=== PATIENT | female | born 1935 | race Caucasian/White ===

== ENCOUNTER 2016-09-15 06:25 | Inpatient (IN) ==
--- NOTE | 2016-09-14 15:55 | Discharge Summary ---
<Aster Lopez E - Last Filed: 09/14/16 16:04> Date of Encounter: 09/14/16 - Discharge Diagnosis (1) Chronic dislocation of right shoulder Priority: Primary Status: Chronic (2) Obesity (BMI 30-39.9) Priority: Secondary Status: Chronic (3) Hypertension Priority: Secondary Status: Chronic Qualifiers: Hypertension type: unspecified secondary hypertension Qualified Code(s): I15.9 - Secondary hypertension, unspecified; I15 - Secondary hypertension (4) Diabetes mellitus Priority: Secondary Status: Chronic Qualifiers: Diabetes mellitus type: type 2 Diabetes mellitus complication status: with unspecified complications Diabetes mellitus fpc insulin use: with local 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 Qualified Code(s): E11.8 - Type 2 diabetes mellitus with unspecified complications; Z79.4 - assistant terminal manager (current) use of insulin - Discharge Medications Prescriptions: Gabapentin [Neurontin] 100 mg PO HS #5 capsule Home Medications: Insulin DETEMIR [Levemir Flextouch] 15 unit SQ BID 12/31/15 [History] Aspirin 81 mg PO DAILY #30 tab.chew 01/03/16 [Rx] Allopurinol [Zyloprim 300 MG] 300 mg PO DAILY 09/15/16 [History] Cholecalciferol (D-3) [Vitamin D] 5,000 unit PO DAILY 09/15/16 [History] Gemfibrozil [Lopid] 600 mg PO BID 09/15/16 [History] Losartan [Cozaar] 25 mg PO DAILY 09/15/16 [History] Multivitamin [One Daily Multivitamin] 1 each PO DAILY 09/15/16 [History] OxyCODONE Immed Rel [Roxicodone 5 MG] 5 - 10 mg PO Q6HR PRN #40 tablet 09/15/16 [Rx] Vitamin B Complex 1 each PO DAILY 09/15/16 [History] Gabapentin [Neurontin] 100 mg PO HS #5 capsule 09/16/16 [Rx] Allergies/Adverse Reactions: Allergies Sulfa (Sulfonamide Antibiotics) Allergy (Verified 09/15/16 07:42) Rash ОЛЕГ Inhibitors Adverse Reaction (Verified 09/15/16 07:42) Palpitations Ximgusu-Qfs-Smq Reductase Inhibitor [Statins] Adverse Reaction (Verified 07:42) Cramping of the Muscles Primary care physician: Ian Roberts, - Patient Status Disposition: Home Health Service Condition: Good - Discharge Instructions Instructions: Chronic Hypertension (DC), Anemia (GEN) Follow Up With: Ian Roberts MD [Primary Care Provider] - Aster Lopez PAC [Physician Section Leader] - 09/28/16 2:20 pm Additional Instructions: Discharge Instructions: Total Shoulder Please call [facility] ([phone]), your Primary Care Physician, or report to the Emergency Room if you have any of the following symptoms: Nausea, vomiting, fever greater that 101.5, swelling, chest pain, shortness of breath, increased pain/redness/drainage/odor for your incision site, numbness/ tingling, or any other concerning symptoms. ACTIVITY: Always keep your arm in the sling. Do not raise your arm away from your body. Do not use your arm to help with getting in or out of bed. No weight bearing permitted. Only perform those exercises given to you by your therapist. MEDICATIONS: Upon discharge resume your home medications. Take all the medications as prescribed. Take a stool softener if taking narcotic pain medications. Stool softeners are only effective if you drink enough fluids. Drink 6-8 glass of water or fluids a day, unless this is not allowed for another health problem. Despite using stool softeners, if you haven't had a bowel movement in 3 days, please switch to a gentle laxative. Gentle laxatives are sold over the counter. You should have a bowel movement within 24 hours, if not call the office. You will be discharged from the hospital with a prescription for pain medication. You are encouraged to decrease the use of narcotic pain medication as tolerated. Should you require a refill, please call the office. [facility] prescribes narcotic pain medication for only 4-6 weeks after surgery. If you require pain medication beyond this time period, you may be referred to your Primary Care Physician or to the Pain Clinic for further evaluation. Plan ahead for refills on pain medication as many narcotics either need to be picked up at the office or mailed. It is best to call 48-72 hours in advance of needing a prescription refill so you don't run out of medication. To help control the post-operative pain, you may take NSAIDs (Aleve,Advil, Motrin, Ibuprofen, Naprosyn) or Tylenol as prescribed on the bottle in addition to the pain medication. WOUND CARE: Leave the dressing on for 7-10 days. You may change the dressing if it becomes saturated greater than 50%. Do not get the dressing wet at anytime. Wash your hands with antibacterial soap, rinse and dry prior to any wound care. If you have macey the visiting nurse or rehab facility can remove the stapes 10-14 days after surgery and place steri-strips across the wound. Leave the steri-strips in place until they fall off on their own. You may let water from the shower run on top of the steri-strips. If you do not have a visiting nurse or rehab facility, you will need to return to the office at 10-14 days for the macey to be removed. If you have itching or redness around the dressing call the office. FOLLOW-UP: Please follow up with your surgeon in the orthopedic clinic, as scheduled - Hospital Course Hospital course: Ms. Cadena is a 81 year old female - Time Spent with Patient Total time spent providing and/or coordinating discharge services: <Lamar Melendez - Last Filed: 09/17/16 12:43> Date of Encounter: 09/16/16 Time of Encounter: 12:43 Primary care physician: Ian Roberts, - Patient Status Functional capacity at discharge: independent ambulation Overall status at discharge: patient is back to baseline - Hospital Course Hospital course: Ms. Cadena is a 81 year old female - Time Spent with Patient Total time spent providing and/or coordinating discharge services: <Asim Chavez - Last Filed: 09/20/16 16:56> Date of Encounter: 09/20/16 Time of Encounter: 16:54 - Discharge Diagnosis (1) Diabetes mellitus Priority: Secondary Status: Chronic Qualifiers: Diabetes mellitus type: type 2 Diabetes mellitus complication status: with unspecified complications Diabetes mellitus fpc insulin use: with fpc use Qualified Code(s): E11.8 - Type 2 diabetes mellitus with unspecified complications; Z79.4 - assistant terminal manager (current) use of insulin (2) CKD stage 3 due to type 2 diabetes mellitus Priority: Secondary Status: Chronic (3) Hypertensive kidney disease with CKD stage III Priority: Secondary Status: Chronic (4) Hypertension Priority: Secondary Status: Chronic Qualifiers: Hypertension type: unspecified secondary hypertension Qualified Code(s): I15.9 - Secondary hypertension, unspecified; I15 - Secondary hypertension (5) Chronic dislocation of right shoulder Priority: Primary Status: Chronic (6) Status post total replacement of right shoulder Priority: Primary Status: Acute (7) Acute blood loss anemia Priority: Primary Status: Acute Primary care physician: Ian Roberts, - Hospital Course Hospital course: Ms. Cadena is a 81 year old female Status post total shoulder replacement for chronic dislocation patient received transfusion prior to discharge discharged in stable condition otherwise uneventful postoperative course received antibiotics and physical therapy. Discharge to home. - Time Spent with Patient Total time spent providing and/or coordinating discharge services:
[2016-09-15] MEDS ORDERED: CeFAZolin Pre 2,000 MG/100 ML 2,000 MG/100 ML BAG IVPB ONE (06:48)
[2016-09-15] MEDS ORDERED: Lidocaine -MPF 1% 2 ML VIAL ID ONE (06:48)
[2016-09-15] MEDS ORDERED: EPHEDrine 50 MG/ML VIAL ONE (06:58)
[2016-09-15] MEDS ORDERED: *HR* Midazolam HCl 2 MG/2 ML VIAL ONE (06:59)
[2016-09-15] MEDS ORDERED: *HR* Propofol 200 MG/20 ML VIAL IVP ONE (06:59)
[2016-09-15] MEDS ORDERED: *HR* FentaNYL (PF) 100 MCG/2 ML VIAL ONE (06:59)
[2016-09-15] MEDS ORDERED: Lidocaine -MPF 4% 5 ML AMPUL ONE (07:00)
[2016-09-15] MEDS ORDERED: *HR* Phenylephrine 10 MG/ML VIAL ONE (07:00)
[2016-09-15] MEDS ORDERED: Lidocaine -MPF 2% 2 ML VIAL ONE (07:00)
[2016-09-15] MEDS ORDERED: Ringers Solution, Lactated 1,000 ML IVC SCH ×2 (07:00→08:15)
[2016-09-15] MEDS ORDERED: *HR* Rocuronium Bromide 50 MG/5 ML VIAL ONE (07:00)
[2016-09-15] MEDS ORDERED: *HR* Succinylcholine 200 MG/10 ML VIAL IVP ONE (07:00)
--- NOTE | 2016-09-15 07:10 | Anesthesia Evaluation PreOp ---
Date of Encounter: 09/15/16 Time of Encounter: 07:08 - Past History Planned Operation: r tsr Cardiac History: HTN, Other (echo 2016: ef 60, nl rv) Pulmonary History: Denies Any Significant HX TRIMMER AND REINFORCER History: Denies Any Significant HX Other Medical History: Renal (cri), Diabetes Type II Anesthesia History: No Prior Anesthetic Complications, Past Anesthesia ( cholecyst, appy, hysterect, nephrectomy,l rcr) Alcohol Use: none Drug use: none Medications and Allergies Insulin DETEMIR [Levemir Flextouch] 12 unit SQ QAM AND QHS 12/31/15 [History] Insulin LISPRO [Humalog Kwikpen U-100] 8 - 15 unit SQ TIDAC 12/31/15 [History] Aspirin 81 mg PO DAILY #30 tab.chew 01/03/16 [Rx] Labetalol [Trandate] 100 mg PO BID #60 tablet 01/03/16 [Rx] Ibuprofen [Motrin] 600 mg PO Q8HR #60 tablet 03/06/16 [Rx] Allergies ОЛЕГ Inhibitors Allergy (Unverified 09/13/16 15:21) Palpitations Jowsnys-Tcd-Loa Reductase Inhibitor [Statins] Allergy (Unverified 09/13/16 15:21 ) Cramping of the Muscles Sulfa (Sulfonamide Antibiotics) Allergy (Verified 12/31/15 20:11) Rash - Meds/Allergy Pre-op Review Medications Reviewed: Yes Allergies Reviewed: Yes Beta Blockers on Current Med List: No Anesthesia Results - Labs Laboratory Tests 09/13/16 09/13/16 09/13/16 15:30 15:30 15:30 Hgb 11.1 L Hct 35.4 Plt Count 302 PT 11.2 INR 1.0 APTT 37.7 H Sodium 142 Potassium 4.6 H Creatinine 1.56 H - Imaging EKG: report reviewed (sr, lvh) Anesthesia Exam O2 Sat Height 1.57 m Height 1.57 m Height 1.57 m Weight 83.461 kg Weight 83.461 kg Weight 83.461 kg O2 Sat by Pulse Oximetry 96 Vital Signs Temp Pulse Resp BP Pulse Ox 98.4 F 84 18 163/88 96 09/15/16 06:52 09/15/16 06:52 09/15/16 06:52 09/15/16 06:52 09/15/16 06:52 Blood glucose: 185 Height: 1.57 Weight: 83 NPO (# of Hours): >8 - HEENT Pupil (Motor): Pupils equal, EOMI Mallampati: III Teeth: Poor dentition Oral Opening: Greater than 3 - TRIMMER AND REINFORCER LOC: Oriented TRIMMER AND REINFORCER Motor: Normal RUE (weak), Normal LUE (weak), Normal Face, Deficit RLE, Deficit LLE TRIMMER AND REINFORCER Sensory: Normal: RUE, LUE, Face, Deficit: RLE, LLE - Cardiac Rhythm: Regular Murmur: None - Pulmonary Breath Sounds: bilateral Clear Respiratory Effort: Symmetrical Anesthesia Assess/Plan ASA Score: 3 Modified Kevin Scale for Level of Consciousness: Cooperative, oriented, and tranquil Anesthetic Plan: General, Regional Monitoring Plan: Standard Monitors Recovery Plan: PACU
[2016-09-15] MEDS ORDERED: 0.9 % Sodium Chloride 500 ML IVC SCH (07:15)
[2016-09-15] MEDS ORDERED: CloNIDine Patch 0.1 MG PATCH (WEEKLY) TD ONE (07:15)
[2016-09-15] MEDS ORDERED: Bupivacaine/Clonidine Syringe 1 EACH SYRINGE ONE (07:22)
[2016-09-15] MEDS ORDERED: ROPIVACAINE HCL/PF 0.5% 30 ML VIAL ONE (07:22)
--- NOTE | 2016-09-15 07:32 | History & Physical Report ---
Date of Encounter: 09/15/16 Time of Encounter: 07:31 24 Hour HP Update - Instructions Instructions: If the History and Physical is less than 30 days old and was completed prior to A.M. admission and or procedure and has NOT been updated on calendar day of procedure please complete this update prior to performing procedure. - Update Patient reports changes in Medical Condition: No Changes in examination, assessment, or condition: No Changes in Medication: No Preop tests/diagnostics Reviewed: Yes Surgery Remains Indicated: Yes Consent for Planned Operative Procedure(s) Verified: Yes - Pre-Operative Checklist Preoperative Checklist Indicated: No Prophylactic Antibiotic Ordered: Yes Is VTE Prophylaxis Indicated?: Yes
[2016-09-15] MEDS ORDERED: Dexamethasone 4 MG/ML VIAL ONE (08:04)
[2016-09-15] MEDS ORDERED: Ondansetron 4 MG/2 ML VIAL ONE (08:04)
[2016-09-15] MEDS ORDERED: Albuterol 2.5 MG/3 ML NEBULIZER IH ONE (08:07)
[2016-09-15] MEDS ORDERED: Ondansetron 4 MG/2 ML VIAL IVP ONE (08:07)
[2016-09-15] MEDS ORDERED: *HR* Meperidine 25 MG/ML SYRINGE IVP PRN (08:07)
[2016-09-15] MEDS ORDERED: *HR* Labetalol 20 MG/4 ML SYRINGE IVP PRN (08:07)
[2016-09-15] MEDS ORDERED: Naloxone 0.4 MG/ML INJ IVP PRN ×2 (08:07→09:52)
--- NOTE | 2016-09-15 08:16 | Anesthesia Procedures ---
Date of Encounter: 09/15/16 Time of Encounter: 08:14 Procedures: Anesthesia - Nerve Block Procedure Date: 09/15/16 Time: 08:14 Surgical Procedure: right tsr reverse Checklist: Correct Patient Identifier, Correct procedure, History checked Correct side: Right Blood Thinner: No Monitor Applied: EKG, BP, Pulse Oximetry Supplemental Oxygen via Nasal Cannula (L/min): 2 Sedation: Versed (mg): 1 Sedation: Fentanyl (mcg): 50 Indication: Post Op Analgesia (request per dr. vargas for post op pain control) Pre-op Neuro Deficits: No Block Type: Supraclavicular (scp/icb) Catheter placed: No Sterile Technique: Yes Ultrasound used: Yes Anatomy identified: Yes Visual spread of Local: Yes Neuro Stimulation: No Blood on Needle Aspiration: No Smooth Injection of Local: Yes Pain with Injection of Local: No Prep: Chlorhexadine Needle: 22 x 50 mm Stimuplex Local: 0.25% Bupivicaine w/Clonidine 20 mcg/cc (scp/icb 10mls), Ropivacaine (0.5 % 30ml) Volume (cc): 30 Number of Attempts: 1 Complications: None/effective block Vitals: Vital Signs/O2 Sat/Glucose, Most Current Temp Pulse Resp BP Pulse Ox 09/15/16 07:41 68 16 146/93 94 09/15/16 06:52 98.4 F 84 18 163/88 96 Comments: pt tolerated procedure well. no complications. vss.
[2016-09-15] MEDS ORDERED: Vancomycin 1,000 MG VIAL ONE (08:27)
[2016-09-15] MEDS ORDERED: Vancomycin 1,250 MG in D5% in Water 250 ML IVPB ONE (08:28)
--- NOTE | 2016-09-15 08:46 | Orthopedic Operative Note ---
Date of procedure: 09/15/16 Pre-op diagnosis: chronic dislocated right shoulder Post-op diagnosis: same Procedure: Procedure: Right Total Shoulder Replacment Reverse, Estimated blood loss: 100 cc Hardware: Metal and polyethylene replacement: Arthrex small glenoid baseplate, 2 4.5 screws. 1 6.5 screw, 36+4 glenosphere, 6 humeral stem, poly insert 3 constrained 6 metal Restricted motion Procedural Notes: Large Hill-Sachs lesion humeral head dislocated from glenoid socket Operative procedure: The patient was brought to the operating room and placed on the operating room table. After general anesthesia was administered the operative shoulder was examined. Findings were noted. The patient was placed in the modified beachchair position. All pressure points were padded appropriately. And the head was stabilized in the neutral position. The operative extremity was prepped and draped in the sterile surgical fashion. The patient received IV antibiotics prior to skin incision. A standard deltopectoral approach was made to the operative shoulder. Incision was made to the skin and subcutaneous tissue,hemo stasis was obtained with Bovie cautery. Using careful blunt dissection the cephalic vein was identified and mobilized medially. The deltopectoral interval was developed and the clavipectoral fascia was incised. The patient was chronically dislocated anatomy was abnormal. Subscap was released and shoulder was dislocated. Humeral head had a large Hill-Sachs lesion. Humeral cut was made along the anatomic neck. Anterior and posterior Bankart retractors were placed to expose the glenoid. Patient had a very small glenoid. The glenoid guide was seated and the centering hole was made. It was reamed with the appropriate reamer. And a small baseplate was seated and secured with (2) 4.5 screws and one 6.5 screw. The baseplate was irrigated and dried and the 36+4 Glenosphere was seated and secured with the Fuentes taper. The Fuentes taper was tested and found to be secure the humerus was redislocated and prepared with the diaphyseal reamers, followed by a broaching process up to the appropriate size 6 in the patient's anatomic version. The metaphyseal reamer was then utilized. Trial reduction found the shoulder to be relocatable. Trial components were removed and The appropriate 6 stem was impacted in place in the patient's anatomic version. Trial reduction found the shoulder to be relocatable and stable with the appropriate 6 metal 3 Anjelica constrained Trial component was removed and the real implants was seated and secured the shoulder was reduced. The shoulder had excellent motion and excellent stability and no evidence of dislocation. The deep tissue was irrigated with pulse irrigation. Wound was closed by the PA. The deltopectoral interval was closed with a running #1 PDS suture, subcutaneous tissue was irrigated and closed with 0 PDS suture, the skin was closed with macey. The patient was placed in a sterile dressing, abduction brace and extubated. The patient was then transferred to the recovery room in stable condition. Anesthesia: GETYordan Surgeon: Asim Chavez Chicken Catcher: Lamar Melendez Condition: stable Disposition: PACU
[2016-09-15] MEDS ORDERED: *HR* HYDROmorphone (PF) 1 MG/ML SYRINGE ONE (09:04)
[2016-09-15] MEDS: *HR* HYDROmorphone (PF) 1 MG/ML SYRINGE IVP PRN ×3 (09:07→22:42)
[2016-09-15 09:31] LABS: Hematocrit 29.7 % (35.3-44.9); Hemoglobin 9.8 g/dL (11.5-15.4)
--- NOTE | 2016-09-15 09:43 | Anesthesia Evaluation Post Op ---
Date of Encounter: 09/15/16 Time of Encounter: 09:42 - Vital Signs Vital Signs: Last Vital Signs Temp 97.3 F L 09/15/16 09:40 Pulse 81 09/15/16 09:40 Resp 16 09/15/16 09:40 BP 153/74 09/15/16 09:40 Pulse Ox 93 09/15/16 09:40 - Lungs Lungs: Clear Ascult./Percussion - Airway Airway: Non-obstructed - Cardiovascular Regular Rate - Mental Status Mental Status: Alert & Oriented, Answers Appropriately - Pain Pain Scale: 2 - Nausea Vomiting Nausea Vomiting: Not Present - Hydration Hydration: Ice chips - Discharge PostOp Status: Transfer Patient to floor
[2016-09-15] MEDS ORDERED: D5% in Water 1,000 ML IVC PRN (09:52)
[2016-09-15] MEDS ORDERED: *HR* Dextrose 50 % in Water (Syg) 50 ML SYRINGE IVP PRN (09:52)
[2016-09-15] MEDS ORDERED: Dextrose Gel 15 GM PO PRN ×2 (09:52)
[2016-09-15] MEDS ORDERED: Temazepam 15 MG CAPSULE PO PRN (09:52)
[2016-09-15] MEDS ORDERED: MOM Conc 10 ML UD.LIQ PO PRN (09:52)
[2016-09-15] MEDS ORDERED: Sennosides 8.6 MG TABLET PO PRN (09:52)
[2016-09-15] MEDS ORDERED: *HR* OxyCODONE Immed Rel 5 MG TABLET PO PRN (09:52)
[2016-09-15] MEDS: Ondansetron 4 MG/2 ML VIAL IVP PRN ×2 (10:27→23:59)
[2016-09-15] MEDS: Aspirin 81 MG TAB.CHEW PO SCH (11:28)
[2016-09-15] MEDS: Multivit/Ca/Min/Fe/FA 1 TAB TABLET PO SCH (11:28)
[2016-09-15] MEDS: Cholecalciferol (D-3) 1,000 UNIT TABLET PO SCH (11:28)
[2016-09-15] MEDS: Insulin LISPRO 300 UNITS/3 ML VIAL SQ SCH ×2 (11:33→16:50)
[2016-09-15] MEDS: Vitamin B Complex/Vit C/Vit E 1 EACH TABLET PO SCH (11:39)
[2016-09-15] MEDS: Ringers Solution, Lactated 1,000 ML IVC SCH (11:43)
[2016-09-15] MEDS: Insulin DETEMIR 100 UNIT/ML X5UNITS SQ SCH ×2 (12:31→22:34)
[2016-09-15] MEDS: ceFAZolin 2,000 MG in D5% in Water 100 ML IVPB SCH ×2 (16:44→23:56)
[2016-09-15] MEDS: *HR* Enoxaparin 30 MG/0.3 ML SYRINGE SQ SCH (17:00)
[2016-09-15] MEDS ORDERED: *HR* Enoxaparin 30 MG/0.3 ML SYRINGE SQ SCH ×2 (18:00)
[2016-09-15] MEDS: *HR* OxyCODONE Immed Rel 5 MG TABLET PO PRN (20:09)
[2016-09-15] MEDS ORDERED: Insulin LISPRO 300 UNITS/3 ML VIAL SQ SCH (21:00)
[2016-09-15] MEDS ORDERED: Gabapentin 100 MG CAPSULE PO SCH (21:00)
[2016-09-16] MEDS: *HR* HYDROmorphone (PF) 1 MG/ML SYRINGE IVP PRN (04:26)
[2016-09-16 05:15] LABS: Hematocrit 27.7 % (35.3-44.9); Hemoglobin 8.8 g/dL (11.5-15.4)
[2016-09-16] MEDS: Ringers Solution, Lactated 1,000 ML IVC SCH (06:17)
--- NOTE | 2016-09-16 07:50 | Orthopedics Progress Note ---
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 Qualified Code(s): E11.8 - Type 2 diabetes mellitus with unspecified complications; Z79.4 - buttermaker continuous churn (current) use of insulin (2) CKD stage 3 due to type 2 diabetes mellitus Current Visit: No Status: Chronic (3) Hypertensive kidney disease with CKD stage III Current Visit: No Status: Chronic (4) Hypertension Current Visit: Yes Status: Chronic Qualifiers: Hypertension type: unspecified secondary hypertension Qualified Code(s): I15.9 - Secondary hypertension, unspecified; I15 - Secondary hypertension (5) Chronic dislocation of right shoulder Current Visit: Yes Status: Chronic (6) Status post total replacement of right shoulder Current Visit: Yes Status: Acute (7) Acute blood loss anemia Current Visit: Yes Status: Acute Subjective Interval history: Patient was seen this morning doing well without complaints. Afebrile vital signs stable. Operative extremity: Neurovascularly intact Dressing clean dry and intact Calves nontender Assessment and plan: Continue with postoperative care Hemoglobin 8.8, acute blood loss anemia, transfused 2 units. Plan for discharge to extended care facility when approved Objective Vital signs: Vital Signs Temp Pulse Resp BP Pulse Ox 09/16/16 07:05 98.0 F 61 18 159/75 99 09/16/16 04:43 98.3 F 66 16 122/50 98 09/16/16 00:23 98.3 F 68 16 171/73 98 09/15/16 19:34 97.9 F 81 15 133/67 97 09/15/16 12:54 97.3 F L 84 16 136/80 93 09/15/16 11:53 97.4 F L 83 16 141/73 93 09/15/16 10:52 97.6 F 86 16 155/84 94 09/15/16 10:36 95 09/15/16 10:23 97.5 F L 87 12 176/82 95 09/15/16 09:57 97.5 F L 81 14 172/82 91 09/15/16 09:40 97.3 F L 81 16 153/74 93 09/15/16 09:30 97.3 F L 83 16 149/73 93 09/15/16 09:20 91 16 134/64 94 09/15/16 09:10 82 16 150/79 94 09/15/16 09:00 97.0 F L 82 16 138/75 93 Intake and Output 09/15/16 09/15/16 09/16/16 15:59 23:59 07:59 Intake Total 350 / 350 0 / 0 1000 / 1000 Output Total 500 / 500 200 / 200 Balance -150 / -150 -200 / -200 1000 / 1000 Intake: IV Fluids 350 / 350 0 / 0 1000 / 1000 Lactated Ringers 1,000 ML 1000 / 1000 @ 75 mls/hr IVC .[id number] [facility] Rx#:[id number] Ancef Premix 2,000 MG/100 100 / 100 ML 2,000 mg In 100 ml @ 200 mls/hr IVPB PREOP ONE Rx#:[id number] Vancocin 1,250 MG In 250 / 250 Dextrose 5% 250 ML @ 167 mls/hr IVPB ONCE ONE Rx#: [id number] Ancef 2,000 MG In 0 / 0 Dextrose 5% 100 ML @ 200 mls/hr IVPB Q8HR [facility] Rx#: [id number] Output: Urine 200 / 200 Estimated Blood Loss 500 / 500 Other: # Voids 1 Blood Glucose* 227 234 133 - Labs CBC & BMP: 09/16/16 04:51 Labs: Abnormal lab results Hgb 8.8 g/dL (11.5-15.4) L 09/16/16 04:51 Hct 27.7 % (35.3-44.9) L 09/16/16 04:51 POC Glucose 234 (58-89) H 09/15/16 22:32 - VTE Documentation of Mechanical Device: Venous foot pump, device Consult Discharge Plan - Plan Referrals: Aster Lopez PAC [Physician Operations And Maintenance Manager] - 09/28/16 2:20 pm Ian Roberts MD [Primary Care Provider] -
[2016-09-16] MEDS: Ondansetron 4 MG/2 ML VIAL IVP PRN (07:53)
[2016-09-16] MEDS: Insulin LISPRO 300 UNITS/3 ML VIAL SQ SCH ×3 (08:12→17:05)
[2016-09-16] MEDS ORDERED: Furosemide 20 MG/2 ML VIAL IVP PRN (09:04)
[2016-09-16] MEDS: Cholecalciferol (D-3) 1,000 UNIT TABLET PO SCH (11:01)
[2016-09-16] MEDS: Multivit/Ca/Min/Fe/FA 1 TAB TABLET PO SCH (11:01)
[2016-09-16] MEDS: Aspirin 81 MG TAB.CHEW PO SCH (11:01)
[2016-09-16] MEDS: Vitamin B Complex/Vit C/Vit E 1 EACH TABLET PO SCH (11:01)
[2016-09-16] MEDS: Insulin DETEMIR 100 UNIT/ML X5UNITS SQ SCH (11:01)
--- NOTE | 2016-09-16 12:19 | Physician Discharge Referral ---
ExtendedCare Referral Info Transfer To: [place] Provider in Charge after Transfer: PCP Institutional Level of Care: Skilled Expected Duration of Placement: 30 days Prognosis: Good Aware of Diagnosis: Patient Aware of Prognosis: Patient - Transfer Medications Prescriptions: Gabapentin [Neurontin] 100 mg PO HS #5 capsule Home Medications: Insulin DETEMIR [Levemir Flextouch] 15 unit SQ BID 12/31/15 [History] Aspirin 81 mg PO DAILY #30 tab.chew 01/03/16 [Rx] Allopurinol [Zyloprim 300 MG] 300 mg PO DAILY 09/15/16 [History] Cholecalciferol (D-3) [Vitamin D] 5,000 unit PO DAILY 09/15/16 [History] Gemfibrozil [Lopid] 600 mg PO BID 09/15/16 [History] Losartan [Cozaar] 25 mg PO DAILY 09/15/16 [History] Multivitamin [One Daily Multivitamin] 1 each PO DAILY 09/15/16 [History] OxyCODONE Immed Rel [Roxicodone 5 MG] 5 - 10 mg PO Q6HR PRN #40 tablet 09/15/16 [Rx] Vitamin B Complex 1 each PO DAILY 09/15/16 [History] Gabapentin [Neurontin] 100 mg PO HS #5 capsule 09/16/16 [Rx] Allergies/Adverse Reactions: Allergies Sulfa (Sulfonamide Antibiotics) Allergy (Verified 09/15/16 07:42) Rash ОЛЕГ Inhibitors Adverse Reaction (Verified 09/15/16 07:42) Palpitations Rtzbzat-Jst-Pqj Reductase Inhibitor [Statins] Adverse Reaction (Verified 07:42) Cramping of the Muscles - Respiratory Orders None Smoking Cessation: Smoking cessation has been advised. For more information, call the [place] Tobacco Quit Line at 1-679-SMXY-NOW. - Lab Orders Lab Orders: CBC - Ancillary Orders May use pressure relief devices daily prn, May go on TATY w/family/respon green party w /meds at nurse discretion PRN, May consult with Dentist, Optical Lens Manufacturing Tech, Sensor Technician PRN - History and Physical History/Physical reviewed & approved w/add comments: POD#1 - Patient received blood transfusion of 2 units. - Rehabiliation Orders Rehab Potential: Good Rehab Orders: ROM Exercises, Evaluation for Physical Therapy, Evaluation for Occupational Therapy Other: Apply cold therapy wrap 3-6x/day for 20 minutes at a time. Shoulder precautions x 6 weeks. Encourage ambulation throughout the day and incentive spirometer 10x/hour. Elevate affected extremity above heart as tolerated. NWB to affected upper extremity. Will remove brace at first post-operative appointment. OK to remove during PT/ OT. - Treatments List/Other: Opsite dressing, leave intact until first post-operative visit. If dressing becomes >50% saturated, contact office, remove dressing and place appropriate dressing in its place. Do not allow for dressing to get wet. Pol[place] in place. Remove at POD#14 - Diet Orders Regular CERTIFICATION: I certify that the transfer of the above named patient to an Extended Care Facility is necessary for the continuing treatment of the diagnosis listed. The above information is true and accurate reflection of patient's current condition. Confidential - Redisclosure prohibited without a patient's written consent.
[2016-09-16] MEDS ORDERED: 0.9 % Sodium Chloride 250 ML ONE (15:45)
[2016-09-16] MEDS: *HR* OxyCODONE Immed Rel 5 MG TABLET PO PRN (17:05)
[2016-09-16] MEDS: *HR* Enoxaparin 30 MG/0.3 ML SYRINGE SQ SCH (17:06)
[2016-09-16] MEDS ORDERED: Furosemide 20 MG/2 ML VIAL IVP ONE (18:40)
[2016-09-16 18:52] VITALS: BP 152/67
== END 2016-09-16 20:30 | disposition home health service (06) | DRG 483 ==
LOC: SAMDAY 06:25 → 3NENU 09:46
PROVIDERS: ADMIT Orthopaedic Surgery; ATTEND Orthopaedic Surgery

== ENCOUNTER 2018-12-20 08:57 | Observation (INO) ==
--- NOTE | 2018-12-20 09:06 | Emergency Department Note ---
Disposition Clinical Impression: Small bowel obstruction Disposition: Admitted As Inpatient Condition: Fair Time of Disposition: 10:45 General Adult HPI - General Chief complaint: ED Nausea/Vomiting/Diarrhea Stated complaint: Nausea/Vomiting Time Seen by Provider: 12/20/18 09:03 Nursing Notes Reviewed: Yes Vital Signs Reviewed: Yes - History of Present Illness HPI Narrative: 83-year-old female presents emergency department with concern for nausea and vomiting for last 12 hours. Patient reports history of kidney cancer with nephrectomy. She also reports a remote history of gastric cancer where she had some type of abdominal surgery performed. Patient also reporting elevated glucose over the last several hours as well. Reports that she cannot keep an ything down. Reports that she has had no fever. She states that the abdominal pain is burning in nature and it is diffuse in nature. It does not radiate anywhere else. - Related Data Home Medications Medication Instructions Recorded Confirmed Insulin DETEMIR [Levemir Flextouch] 15 unit SQ BID 12/31/15 12/20/18 Allopurinol [Zyloprim 300 MG] 300 mg PO DAILY 09/15/16 12/20/18 Cholecalciferol (D-3) [Vitamin D] 5,000 unit PO DAILY 09/15/16 12/20/18 Gemfibrozil [Lopid] 600 mg PO BID 09/15/16 12/20/18 Losartan [Cozaar] 25 mg PO DAILY 09/15/16 12/20/18 Multivitamin [One Daily 1 each PO DAILY 09/15/16 12/20/18 Multivitamin] Vitamin B Complex 1 each PO DAILY 09/15/16 12/20/18 Previous Rx's Medication Instructions Recorded Aspirin 81 mg PO DAILY #30 tab.chew 01/03/16 Allergies Allergy/AdvReac Type Severity Reaction Status Date / Time Sulfa (Sulfonamide Allergy Rash Verified 09/01/18 20:33 Antibiotics) ОЛЕГ Inhibitors AdvReac Palpitation Verified 09/01/18 20:33 s [id number] Reductase AdvReac Cramping Verified 09/01/18 20:33 Inhibitor of the [Statins] Muscles All systems ED: reviewed and negative except as stated. Review of Systems: As Per HPI Constitutional: Denies: fever Cardiovascular: Denies: chest pain Respiratory: Denies: cough, dyspnea Gastrointestinal: Reports: abdominal pain, nausea, vomiting. Denies: melena Genitourinary: Denies: dysuria Musculoskeletal: Denies: back pain Past Medical History - Past Medical History Attestation: Yes The following information was validated with the patient. Medical history: Reports: diabetes, hypertension Surgical history: Reports: appendectomy, cholecystectomy, other Psychiatric history: Reports: no psych history, other - Social History Smoking Status: Never smoker Smokeless Tobacco Status: No Alcohol use: Reports: none Drug use: Reports: none Physical Exam - General Limitations: no limitations General appearance: alert, other (Appears uncomfortable) - Head Head exam: normocephalic, normal inspection - Eye Eye exam: Present: EOMI. Absent: scleral icterus - ENT ENT exam: mucous membranes moist - Neck Neck exam: Present: trachea midline - Chest Chest inspection: Present: symmetric chest wall rise - Respiratory Respiratory exam: Present: normal lung sounds bilaterally. Absent: respiratory distress, accessory muscle use - Cardiovascular Cardiovascular exam: Present: regular rate, normal rhythm, normal heart sounds - Abdominal Exam Abdominal exam: Present: soft, tenderness. Absent: distention, guarding, rebou nd, rigidity - Extremities Exam Extremities exam: Present: normal capillary refill - Back Exam Back exam: Present: full ROM - Neurological Exam Neurological exam: Present: alert, oriented X3 - Psychiatric Psychiatric exam: Present: normal affect, normal mood Course Vital Signs Temperature 97.6 F 12/20/18 08:58 Pulse Rate 99 12/20/18 08:58 Respiratory Rate 18 12/20/18 08:58 Blood Pressure 226/110 12/20/18 08:58 O2 Sat by Pulse Oximetry 98 12/20/18 08:58 Temperature 97.6 F 12/20/18 09:08 Pulse Rate 84 12/20/18 10:50 Respiratory Rate 16 12/20/18 10:50 Blood Pressure 196/91 12/20/18 10:50 O2 Sat by Pulse Oximetry 97 12/20/18 10:50 Oxygen Delivery Oxygen Delivery Nasal Cannula Medical Decision Making - MDM Narrative Medical decision making narrative: 83-year-old female was his emergency department with nausea, vomiting, abdominal pain. CT scan of the abdomen and pelvis reveals small bowel obstruction. There is a transition point. I spoke with Dr. Huizar, the general surgeon who stated to admit patient to medicine and he would consult formally on the case. Creatinine is about baseline. Patient admitted to Dr. Omeda. No NG tube placement at this tme. Abdomen/Pelvis CT 12/20/18 09:40 IMPRESSION: 1. Small-bowel obstruction with a transition point in the right lower quadrant within the ileum. There is a questionable 2nd transition point versus adhesion within the mid pelvis mesentery as well. No free air or pneumatosis. 2. Trace ascites. 3. Sequela of chronic pancreatitis. 4. Status post right nephrectomy. D/ / Bria Mireles MD / Bria Mireles MD Interpreting Provider: Bria Mireles MD 1008 hrs.: Patient CT is back and shows a bowel obstruction. We are going to speak with surgery reassess the patient bring her into the hospital. She also has a chronic kidney injury and elevated white count. 1020 hrs.: Spoke with surgery, Dr. Huizar, admit to hospitalist with surgery consult. - Lab Data Result diagrams: 12/20/18 09:17 12/20/18 09:17 Lab Results 12/20/18 12/20/18 12/20/18 Range/Units 09:17 09:17 09:17 WBC 13.6 H (4.3-11.1) K/mcL RBC 3.36 L (3.82-4.97) M/mcL Hgb 10.5 L (11.5-15.4) g/dL Hct 32.5 L (35.3-44.9) % MCV 96.7 (83.0-100.0) fL MCH 31.3 (28.0-33.3) pg MCHC 32.3 (31.6-35.5) g/dL RDW 14.8 H (11.5-14.5) % Plt Count 327 (140-400) K/mcL MPV 11.2 (9.4-12.4) fL Immature Gran % 0.3 (0-4) % Seg Neutrophils % 94.4 % Lymphocytes % 2.9 % Monocytes % 2.0 % Eosinophils % 0.0 % Basophils % 0.4 % Neutrophils # 12.8 H (1.6-8.9) K/mcL Lymphocytes # 0.4 L (0.6-4.6) K/mcL Monocytes # 0.3 (0.0-1.3) K/mcL Eosinophils # 0.0 (0.0-0.6) K/mcL Basophils # 0.1 (0.0-0.2) K/mcL VBG pH (7.32-7.42) pH Units VBG pCO2 (41-51) mmHg VBG pO2 (25-50) mmHg VBG HCO3 (21-27) mEq/L Sodium 138 (136-145) mEq/L Potassium 5.0 (3.5-5.1) mEq/L Chloride 105 (98-107) mEq/L Carbon Dioxide 18 L (23-29) mEq/L BUN 38 H (8-23) mg/dL Creatinine 1.75 H (0.60-1.20) mg/dL Est GFR ( Amer) 34 L (> 60) Est GFR (Non-Af Amer) 28 L (> 60) BUN/Creatinine Ratio 22 (6-26) Glucose 336 H (70-105) mg/dL Calculated Osmolality 308 H (280-300) Lactic Acid 2.0 (0.5-2.2) mmol/L Calcium 10.3 (8.6-10.3) mg/dL Total Bilirubin 0.5 (0.3-1.0) mg/dL AST 16 (13-39) Units/L ALT 11 (7-52) Units/L Alkaline Phosphatase 147 H (34-104) Units/L Troponin I < 0.03 (< 0.04) ng/mL Serum Total Protein 7.4 (6.4-8.9) g/dL Albumin 4.3 (3.5-5.7) g/dL Globulin 3.1 (2.4-3.5) g/dL Albumin/Globulin Ratio 1.4 (1.1-2.2) Lipase 5 L (11-82) Units/L Urine Microscopic RBC (0-3) per hpf Urine Microscopic WBC (0-3) per hpf Ur Squamous Epith Cells (None-Few) per lpf Urine Bacteria (None-Few) per hpf Hyaline Casts (None-Few) per lpf Ur Culture Indicated? (NO) 12/20/18 12/20/18 Range/Units 10:09 10:13 WBC (4.3-11.1) K/mcL RBC (3.82-4.97) M/mcL Hgb (11.5-15.4) g/dL Hct (35.3-44.9) % MCV (83.0-100.0) fL MCH (28.0-33.3) pg MCHC (31.6-35.5) g/dL RDW (11.5-14.5) % Plt Count (140-400) K/mcL MPV (9.4-12.4) fL Immature Gran % (0-4) % Seg Neutrophils % % Lymphocytes % % Monocytes % % Eosinophils % % Basophils % % Neutrophils # (1.6-8.9) K/mcL Lymphocytes # (0.6-4.6) K/mcL Monocytes # (0.0-1.3) K/mcL Eosinophils # (0.0-0.6) K/mcL Basophils # (0.0-0.2) K/mcL VBG pH 7.34 (7.32-7.42) pH Units VBG pCO2 38 L (41-51) mmHg VBG pO2 101 H (25-50) mmHg VBG HCO3 20 L (21-27) mEq/L Sodium (136-145) mEq/L Potassium (3.5-5.1) mEq/L Chloride (98-107) mEq/L Carbon Dioxide (23-29) mEq/L BUN (8-23) mg/dL Creatinine (0.60-1.20) mg/dL Est GFR ( Amer) (> 60) Est GFR (Non-Af Amer) (> 60) BUN/Creatinine Ratio (6-26) Glucose (70-105) mg/dL Calculated Osmolality (280-300) Lactic Acid (0.5-2.2) mmol/L Calcium (8.6-10.3) mg/dL Total Bilirubin (0.3-1.0) mg/dL AST (13-39) Units/L ALT (7-52) Units/L Alkaline Phosphatase (34-104) Units/L Troponin I (< 0.04) ng/mL Serum Total Protein (6.4-8.9) g/dL Albumin (3.5-5.7) g/dL Globulin (2.4-3.5) g/dL Albumin/Globulin Ratio (1.1-2.2) Lipase (11-82) Units/L Urine Microscopic RBC 0-3 (0-3) per hpf Urine Microscopic WBC 5-15 H (0-3) per hpf Ur Squamous Epith Cells Many H (None-Few) per lpf Urine Bacteria Many H (None-Few) per hpf Hyaline Casts None Seen (None-Few) per lpf Ur Culture Indicated? YES A (NO) - EKG Data EKG #1 EKG attestation: Yes I reviewed and interpreted this EKG. EKG results narrative: 09:16 Heart rate 87 bpm, appearing of 213 ms, QRS duration 99 ms, QT 363 ms, normal axis. Sinus rhythm with no ischemic ST changes. Critical Care Time Critical Care Time: Yes Total Critical Care Time: 40 Attestation: Excluding separately billable procedures.
[2018-12-20] MEDS ORDERED: Ondansetron 4 MG/2 ML VIAL IVP ONE (09:14)
[2018-12-20] MEDS ORDERED: Morphine Sulfate 2 MG/ML SYRINGE IVP ONE (09:14)
[2018-12-20 09:33] LABS: Basophils # 0.1 K/mcL (0.0-0.2); Basophils % 0.4 %; Hematocrit 32.5 % (35.3-44.9); Hemoglobin 10.5 g/dL (11.5-15.4); Immature Granulocytes % 0.3 % (0-4); Lymphocytes # 0.4 K/mcL (0.6-4.6); Lymphocytes % 2.9 %; Mean Corpuscular HGB Conc 32.3 g/dL (31.6-35.5); Mean Corpuscular Hemoglobin 31.3 pg (28.0-33.3); Mean Corpuscular Volume 96.7 fL (83.0-100.0); Mean Platelet Volume 11.2 fL (9.4-12.4); Monocytes # 0.3 K/mcL (0.0-1.3); Neutrophils # 12.8 K/mcL (1.6-8.9); Platelet Count 327 K/mcL (140-400); Red Blood Count 3.36 M/mcL (3.82-4.97); Red Cell Distribution Width 14.8 % (11.5-14.5); Segmented Neutrophils % 94.4 %; White Blood Count 13.6 K/mcL (4.3-11.1)
[2018-12-20] MEDS ORDERED: 0.9 % Sodium Chloride 1,000 ML IVC ONE (09:37)
[2018-12-20 09:59] LABS: Alanine Aminotransferase 11 Units/L (7-52); Albumin 4.3 g/dL (3.5-5.7); Albumin/Globulin Ratio 1.4 (1.1-2.2); Alkaline Phosphatase 147 Units/L (34-104); Aspartate Amino Transferase 16 Units/L (13-39); BUN/Creatinine Ratio 22 (6-26); Bilirubin,Total 0.5 mg/dL (0.3-1.0); Blood Urea Nitrogen 38 mg/dL (8-23); Calcium 10.3 mg/dL (8.6-10.3); Carbon Dioxide 18 mEq/L (23-29); Chloride 105 mEq/L (98-107); Globulin 3.1 g/dL (2.4-3.5); Glucose 336 mg/dL (70-105); Lipase 5 Units/L (11-82); Osmolality,Calculated 308 (280-300); Sodium 138 mEq/L (136-145); Total Protein 7.4 g/dL (6.4-8.9); Troponin I < 0.03 ng/mL (< 0.04); eGFR For African Americans 34 (> 60); eGFR For Non-African Americans 28 (> 60)
[2018-12-20 10:11] LABS: VBG HCO3 20 mEq/L (21-27); VBG PCO2 38 mmHg (41-51); VBG PH 7.34 pH Units (7.32-7.42); VBG PO2 101 mmHg (25-50)
[2018-12-20 10:30] LABS: Bilirubin,Urine Negative (Negative); Blood,Urine Small (Negative); Clarity,Urine Clear (Clear); Color,Urine Yellow (Yellow); Glucose,Urine (UA) 500 mg/dL (Normal); Ketones,Urine Negative (Negative); Leukocyte Esterase,Urine Negative (Negative); Nitrite,Urine Negative (Negative); Protein,Urine >=300 mg/dL (Neg-Trace); Specific Gravity,Urine 1.015 (1.010-1.025); Urobilinogen,Urine Normal (Normal)
[2018-12-20 10:31] LABS: Bacteria,Urine Many per hpf (None-Few); Hyaline Casts,Urine None Seen per lpf (None-Few); RBC,Urine 0-3 per hpf (0-3); Squamous Epithelial Cell,Urine Many per lpf (None-Few)
[2018-12-20] MEDS ORDERED: Naloxone 0.4 MG/ML INJ IVP PRN (12:10)
[2018-12-20] MEDS ORDERED: *HR* Labetalol 20 MG/4 ML SYRINGE IVP PRN (12:18)
--- NOTE | 2018-12-20 13:30 | Electrocardiograph Report ---
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
[2018-12-20] MEDS ORDERED: *HR* Promethazine 25 MG/ML VIAL IVP PRN (13:55)
--- NOTE | 2018-12-20 13:56 | AcuteCare Surgery Consult Note ---
Date of Encounter: 12/20/18 Time of Encounter: 13:53 Assessment and Plan (1) Small bowel obstruction Current Visit: Yes Status: Acute I explained to the patient that I personally reviewed the CT scan images and report. Currently on my examination she looks good and says she feels better. She has positive bowel sounds and some mild tenderness to palpation. I am hesitant to place an NG tube however I am concerned about the CT scan findings. I explained to the patient and family member if she has any nausea then she needs an EGD for decompression. Will do serial abdominal exam and continue to evaluate and follow along with her laboratory studies. I agree with IV fluid hydration as well. Will follow with you. History of Present Illness Consult date: 12/20/18 Reason for consult: other (abdominal pain, nausea, vomiting.) Requesting physician: Ant Valenzuela History of present illness: The patient is an 83 year old female with a past medical history consistent with DMII, hypercalcemia, CKD3, who presents to [facility] with a less than 24-hour history of abdominal pain with nausea and vomiting. She sta alvarado that she really has not had any a like this in the past and had yesterday evening nausea and vomiting and denies any history of diarrhea or constipation. She states that normally she has a bowel movement in the morning and her last bowel movement yesterday morning without any rectal bleeding. She denies any hematemesis. She presented herself to the emergency room and upon evaluation was given Zofran and she states that she has not had any nausea symptoms since that time. She is not currently having any abdominal pain. She denies any current flatus. Past Med Surg Social Fam HX - Past Medical History Medical history: cancer, diabetes, hyperlipidemia, hypertension Additional medical history: cervical CA, kidney CA, 1 kidney Psychiatric history: no psych history, other - Past Surgical History Surgical History: appendectomy, cholecystectomy, other (laparoscopic right nephrectomy, Gastric surgery-unknown (1970)) Additional surgical history: r nephrectomy - Social History Smoking Status: Never smoker Smokeless Tobacco Status: No Alcohol use: none Drug use: none - Family History Mother Hx Family Neurologic Disorders: Yes Medications and Allergies Insulin DETEMIR [Levemir Flextouch] 15 unit SQ BID 12/31/15 [History] Aspirin 81 mg PO DAILY #30 tab.chew 01/03/16 [Rx] Allopurinol [Zyloprim 300 MG] 300 mg PO DAILY 09/15/16 [History] Cholecalciferol (D-3) [Vitamin D] 5,000 unit PO DAILY 09/15/16 [History] Gemfibrozil [Lopid] 600 mg PO BID 09/15/16 [History] Losartan [Cozaar] 25 mg PO DAILY 09/15/16 [History] Multivitamin [One Daily Multivitamin] 1 each PO DAILY 09/15/16 [History] Vitamin B Complex 1 each PO DAILY 09/15/16 [History] Allergy/AdvReac Type Severity Reaction Status Date / Time Sulfa (Sulfonamide Allergy Rash Verified 09/01/18 20:33 Antibiotics) ОЛЕГ Inhibitors AdvReac Palpitation Verified 09/01/18 20:33 s [id number] Reductase AdvReac Cramping Verified 09/01/18 20:33 Inhibitor of the [Statins] Muscles Review of Systems All systems PM: reviewed and no additional remarkable complaints except as stated All systems PM: The remainder of the systems were reviewed and are negative General Surgery Exam Initial Vital Signs Temp Pulse Resp BP Pulse Ox 97.6 F 99 18 226/110 98 12/20/18 08:58 12/20/18 08:58 12/20/18 08:58 12/20/18 08:58 12/20/18 08:58 - Eyes PERRL, normal ocular movement - Respiratory normal expansion, normal respiratory effort, clear to auscultation - Cardiovascular Cardiovascular exam: Present: RRR, no murmurs/rubs/gallops - Abdomen Abdomen general surgery: Present: bowel sounds present, soft (Difficult to appreciate any evidence of distension. No masses. Mild tenderness to palpation, periumbilical. No hernias) - Musculoskeletal Present: other (no clubbing, cyanosis, or edema) - Psychiatric Psychiatric general surgery: Present: A&Ox3, oriented to person, oriented to place Exam Initial Vital Signs Temp Pulse Resp BP Pulse Ox 97.6 F 99 18 226/110 98 12/20/18 08:58 12/20/18 08:58 12/20/18 08:58 12/20/18 08:58 12/20/18 08:58 Results - Labs 12/20/18 09:17 12/20/18 09:17 Abnormal lab results WBC 13.6 K/mcL (4.3-11.1) H 12/20/18 09:17 RBC 3.36 M/mcL (3.82-4.97) L 12/20/18 09:17 Hgb 10.5 g/dL (11.5-15.4) L 12/20/18 09:17 Hct 32.5 % (35.3-44.9) L 12/20/18 09:17 RDW 14.8 % (11.5-14.5) H 12/20/18 09:17 Neutrophils # 12.8 K/mcL (1.6-8.9) H 12/20/18 09:17 Lymphocytes # 0.4 K/mcL (0.6-4.6) L 12/20/18 09:17 VBG pCO2 38 mmHg (41-51) L 12/20/18 10:09 VBG pO2 101 mmHg (25-50) H 12/20/18 10:09 VBG HCO3 20 mEq/L (21-27) L 12/20/18 10:09 Carbon Dioxide 18 mEq/L (23-29) L 12/20/18 09:17 BUN 38 mg/dL (8-23) H 12/20/18 09:17 Creatinine 1.75 mg/dL (0.60-1.20) H 12/20/18 09:17 Est GFR ( Amer) 34 (> 60) L 12/20/18 09:17 Est GFR (Non-Af Amer) 28 (> 60) L 12/20/18 09:17 Glucose 336 mg/dL (70-105) H 12/20/18 09:17 POC Glucose 292 mg/dL (70-99) H 12/20/18 12:06 Calculated Osmolality 308 (280-300) H 12/20/18 09:17 Alkaline Phosphatase 147 Units/L (34-104) H 12/20/18 09:17 Lipase 5 Units/L (11-82) L 12/20/18 09:17 Beta-Hydroxybutyric Acd 0.33 mmol/L (0.02-0.27) H 12/20/18 09:17 Ur Specimen Adequacy See below A 12/20/18 10:13 Urine Protein >=300 mg/dL (Neg-Trace) H 12/20/18 10:13 Urine Glucose (UA) 500 mg/dL (Normal) H 12/20/18 10:13 Urine Blood Small (Negative) H 12/20/18 10:13 Urine Microscopic WBC 5-15 per hpf (0-3) H 12/20/18 10:13 Ur Squamous Epith Cells Many per lpf (None-Few) H 12/20/18 10:13 Urine Bacteria Many per hpf (None-Few) H 12/20/18 10:13 Ur Culture Indicated? YES (NO) A 12/20/18 10:13 Diabetes panel 12/20/18 Range/Units 09:17 Sodium 138 (136-145) mEq/L Potassium 5.0 (3.5-5.1) mEq/L Chloride 105 (98-107) mEq/L Carbon Dioxide 18 L (23-29) mEq/L BUN 38 H (8-23) mg/dL Creatinine 1.75 H (0.60-1.20) mg/dL Glucose 336 H (70-105) mg/dL Calcium 10.3 (8.6-10.3) mg/dL AST 16 (13-39) Units/L ALT 11 (7-52) Units/L Alkaline Phosphatase 147 H (34-104) Units/L Albumin 4.3 (3.5-5.7) g/dL Calcium panel 12/20/18 Range/Units 09:17 Calcium 10.3 (8.6-10.3) mg/dL Albumin 4.3 (3.5-5.7) g/dL Pituitary panel 12/20/18 Range/Units 09:17 Sodium 138 (136-145) mEq/L Potassium 5.0 (3.5-5.1) mEq/L Chloride 105 (98-107) mEq/L Carbon Dioxide 18 L (23-29) mEq/L BUN 38 H (8-23) mg/dL Creatinine 1.75 H (0.60-1.20) mg/dL Glucose 336 H (70-105) mg/dL Calcium 10.3 (8.6-10.3) mg/dL Adrenal panel 12/20/18 Range/Units 09:17 Sodium 138 (136-145) mEq/L Potassium 5.0 (3.5-5.1) mEq/L Chloride 105 (98-107) mEq/L Carbon Dioxide 18 L (23-29) mEq/L BUN 38 H (8-23) mg/dL Creatinine 1.75 H (0.60-1.20) mg/dL Glucose 336 H (70-105) mg/dL Calcium 10.3 (8.6-10.3) mg/dL Total Bilirubin 0.5 (0.3-1.0) mg/dL AST 16 (13-39) Units/L ALT 11 (7-52) Units/L Alkaline Phosphatase 147 H (34-104) Units/L Albumin 4.3 (3.5-5.7) g/dL All other labs normal. - Imaging CT scan - abdomen: report reviewed, image reviewed (I personally reviewed the CT scan images and report which show some dilated small bowel. Questionable transition zone at the terminal ileum. Appears to be some stool in the colon and there is concern for fecalization of the small bowel. No masses.) Consult Discharge Plan - Plan Referrals: Ian Roberts MD [Primary Care Provider] -
[2018-12-20] MEDS: 0.9 % Sodium Chloride 1,000 ML IVC SCH ×2 (14:10→22:25)
[2018-12-20] MEDS: *HR* Metoprolol 5 MG/5 ML VIAL IVP SCH ×3 (14:12→23:56)
--- NOTE | 2018-12-20 14:30 | Internal Med History&Physical ---
Date of Encounter: 12/20/18 Time of Encounter: 12:30 Internal Medicine - H&P: HPI Chief complaint: Abdominal discomfort, nausea and vomiting Admitted From: Emergency Dept Plans for Post Hospital Care: Home History of present illness: Ms. Cadena is a 83 year old female patient with history of diabetes, hypertension, chronic kidney disease stage III, renal cell carcinoma status post nephrectomy, gastric tumor who presented to the ER with complaints of Nausea and vomiting nausea and vomiting that have been going on since midnight. She reports that she her normal bowel movement yesterday morning. She has not had any further bowel movements since then. Denies any fevers or chills. No chest pain or palpitations. She has not noticed any blood in her stools. No hemoptysis or hematemesis. She does describe generalized abdominal discomfort and pain and poor appetite. Past Med Surg Social Fam HX - Past Medical History Medical history: cancer, diabetes, hyperlipidemia, hypertension Additional medical history: cervical CA, kidney CA, 1 kidney Psychiatric history: no psych history, other - Past Surgical History Surgical History: appendectomy, cholecystectomy, other (laparoscopic right nephrectomy, Gastric surgery-unknown (1970)) Additional surgical history: r nephrectomy - Social History Smoking Status: Never smoker Smokeless Tobacco Status: No Alcohol use: none Drug use: none - Family History Mother Hx Family Neurologic Disorders: Yes Internal Medicine - H&P: Meds Insulin DETEMIR [Levemir Flextouch] 15 unit SQ BID 12/31/15 [History] Aspirin 81 mg PO DAILY #30 tab.chew 01/03/16 [Rx] Allopurinol [Zyloprim 300 MG] 300 mg PO DAILY 09/15/16 [History] Cholecalciferol (D-3) [Vitamin D] 5,000 unit PO DAILY 09/15/16 [History] Gemfibrozil [Lopid] 600 mg PO BID 09/15/16 [History] Losartan [Cozaar] 25 mg PO DAILY 09/15/16 [History] Multivitamin [One Daily Multivitamin] 1 tab PO DAILY 09/15/16 [History] Vitamin B Complex 1 each PO DAILY 09/15/16 [History] Allergy/AdvReac Type Severity Reaction Status Date / Time Sulfa (Sulfonamide Allergy Rash Verified 12/20/18 14:17 Antibiotics) ОЛЕГ Inhibitors AdvReac Palpitation Verified 12/20/18 14:17 s [id number] Reductase AdvReac Cramping Verified 12/20/18 14:17 Inhibitor of the [Statins] Muscles All Systems PM: A 10-system review of systems was performed and is negative for pertinent findings except as documented above in the HPI. - Constitutional Constitutional: malaise, no chills, no fever(s), no night sweats - EENT Eyes: no change in vision, no discharge, no pain, no photophobia Ears: no ear discharge, no ear pain, no tinnitus Nose, mouth and throat: no dysphagia, no nasal discharge, no neck pain, no sore throat - Cardiovascular Cardiovascular ROS IM: no chest pain, no diaphoresis, no dyspnea, no lightheadedness, no palpitations, no syncope - Respiratory Respiratory: no cough, no dyspnea, no wheezing, no excessive phlegm production - Gastrointestinal Gastrointestinal: abdominal pain, nausea, vomiting, no diarrhea, no hematemesis, no hematochezia, no melena - Genitourinary Genitourinary: no change in urinary stream, no dysuria, no flank pain, no hematuria - Musculoskeletal Musculoskeletal ROS IM: no numbness, no tingling - Integumentary Integumentary IM: no rash, no unusual bruising - Neurological Neurological ROS: no confusion, no convulsions, no focal weakness, no numbness, no tingling, no tremor(s) - Hematologic/Lymphatic Hematologic/Lymphatic: no easy bruising - Constitutional Vitals: Temp Pulse Resp BP Pulse Ox 98.7 F 79 15 132/69 97 12/20/18 14:15 12/20/18 14:15 12/20/18 14:15 12/20/18 14:15 12/20/18 14:15 Exam: General: Patient is alert, no acute distress, oriented x 3 Eyes: PERRLA, EOMI, no conjunctival injection or icterus Neck: No nuchal rigidity, trachea midline ENT: Mucous membranes dry Respiratory: Good respiratory effort. Normal breath sounds. No wheezing or crackles. Cardiovascular: Regular rate and rhythm. s1 and s2 normal No clicks, rubs, gallops, or murmurs. No pedal edema Abdomen: Abdomen is diffusely tender, no rigidity or guarding. Bowel sounds are hypoactive Musculoskeletal: Spontaneously moving all extremities Skin: warm, dry, intact. Neuro: Alert oriented x 3 normal cranial nerves, no focal deficits Psych: Normal affect and mood Internal Med - H&P Results - Labs CBC & Chem 7: 12/20/18 09:17 12/20/18 09:17 Labs: Short CBC 12/20/18 Range/Units 09:17 WBC 13.6 H (4.3-11.1) K/mcL Hgb 10.5 L (11.5-15.4) g/dL Hct 32.5 L (35.3-44.9) % Plt Count 327 (140-400) K/mcL Neutrophils # 12.8 H (1.6-8.9) K/mcL BMP 12/20/18 09:17 Sodium 138 Potassium 5.0 Chloride 105 Carbon Dioxide 18 L BUN 38 H Creatinine 1.75 H Glucose 336 H Calcium 10.3 Cardiac Enzymes 12/20/18 Range/Units 09:17 Troponin I < 0.03 (< 0.04) ng/mL Liver Function 12/20/18 Range/Units 09:17 Total Bilirubin 0.5 (0.3-1.0) mg/dL AST 16 (13-39) Units/L ALT 11 (7-52) Units/L Alkaline Phosphatase 147 H (34-104) Units/L Albumin 4.3 (3.5-5.7) g/dL Urine 12/20/18 Range/Units 10:13 Urine Color Yellow (Yellow) Urine Clarity Clear (Clear) Urine pH 6.0 (5.0-8.0) pH Units Ur Specific [place] 1.015 (1.010-1.025) Urine Protein >=300 H (Neg-Trace) mg/dL Urine Glucose (UA) 500 H (Normal) mg/dL - ABG Interpretation ABG results: 12/20/18 10:09 VBG pH 7.34 VBG pCO2 38 L VBG pO2 101 H VBG HCO3 20 L - Impressions ITS Impressions Abdomen/Pelvis CT 12/20/18 09:40 IMPRESSION: 1. Small-bowel obstruction with a transition point in the right lower quadrant within the ileum. There is a questionable 2nd transition point versus adhesion within the mid pelvis mesentery as well. No free air or pneumatosis. 2. Trace ascites. 3. Sequela of chronic pancreatitis. 4. Status post right nephrectomy. D/ /20/2018 10:17:19 Bria Mireles MD / jerilyn Interpreting Provider: Bria Mireles MD - Assessment and Plan (1) Small bowel obstruction Current Visit: Yes Status: Acute (2) Chronic kidney disease, stage III (moderate) Current Visit: Yes Status: Chronic (3) Diabetes mellitus, type 2 Current Visit: Yes Status: Chronic Qualifiers: Diabetes mellitus meterman insulin use: with meterman use Diabetes mellitus complication status: with hyperglycemia Qualified Code(s): E11.65 - Type 2 diabetes mellitus with hyperglycemia; Z79.4 - [facility] (current) use of insulin (4) Hypertension Current Visit: Yes Status: Chronic Qualifiers: Hypertension type: essential hypertension Qualified Code(s): I10 - Essential (primary) hypertension - Summary of Assessment and Plan Summary of Assessment and Plan: Acute small bowel obstruction: Patient presenting with symptoms of nausea and vomiting and abdominal pain. CT scan shows small bowel obstruction with transition point in the right lower quadrant within the ileum. Will keep nothing by mouth. Consult surgery. Follow surgery recommendations. Treat nausea and pain symptomatically. IV hydration. Diabetes mellitus type 2: Monitor blood sugars. Will place patient on sliding scale insulin. Hypertensive urgency: Blood pressure severely elevated. Will place patient on intravenous medications to control blood pressure better. Chronic kidney disease stage III: Creatinine 1.75. Slightly above baseline. Will monitor renal function closely. Monitor input and output. Anemia due to chronic kidney disease: Monitor hemoglobin levels. Currently at baseline. DVT prophylaxis with subcutaneous heparin - Time Spent With Patient Total time spent is greater than 50% in coordination of care (as documented) at patient's floor/unit and/or counseling patient:
[2018-12-20] MEDS ORDERED: D5% in Water 1,000 ML IVC PRN (14:34)
[2018-12-20] MEDS ORDERED: Dextrose Gel 15 GM/37.5 ML TUBE PO PRN ×2 (14:34)
[2018-12-20] MEDS ORDERED: *HR* Dextrose 50 % in Water (Syg) 50 ML SYRINGE IVP PRN (14:34)
[2018-12-20] MEDS ORDERED: Ondansetron 4 MG/2 ML VIAL IVP PRN (16:09)
[2018-12-20] MEDS: Insulin LISPRO 300 UNITS/3 ML VIAL SQ SCH ×3 (16:19→23:48)
[2018-12-21 02:28] LABS: Basophils % 0.5 %; Eosinophils # 0.1 K/mcL (0.0-0.6); Eosinophils % 0.9 %; Immature Granulocytes % 0.2 % (0-4); Lymphocytes # 1.8 K/mcL (0.6-4.6); Lymphocytes % 31.8 %; Mean Corpuscular HGB Conc 30.9 g/dL (31.6-35.5); Mean Corpuscular Hemoglobin 30.9 pg (28.0-33.3); Mean Platelet Volume 11.2 fL (9.4-12.4); Monocytes # 0.5 K/mcL (0.0-1.3); Monocytes % 9.2 %; Neutrophils # 3.3 K/mcL (1.6-8.9); Platelet Count 251 K/mcL (140-400); Red Cell Distribution Width 15.1 % (11.5-14.5); Segmented Neutrophils % 57.4 %
[2018-12-21 02:38] LABS: Hemoglobin 7.1 g/dL (11.5-15.4); White Blood Count 5.7 K/mcL (4.3-11.1)
[2018-12-21 02:44] LABS: Calcium 8.6 mg/dL (8.6-10.3); Potassium 4.8 mEq/L (3.5-5.1)
[2018-12-21] MEDS: Insulin LISPRO 300 UNITS/3 ML VIAL SQ SCH ×4 (06:13→16:45)
[2018-12-21] MEDS: 0.9 % Sodium Chloride 1,000 ML IVC SCH ×2 (06:14→16:46)
[2018-12-21] MEDS: *HR* Metoprolol 5 MG/5 ML VIAL IVP SCH (06:36)
[2018-12-21 08:40] LABS: Hematocrit 24.1 % (35.3-44.9); Hemoglobin 7.6 g/dL (11.5-15.4)
--- NOTE | 2018-12-21 08:54 | AcuteCareSurgery Progress Note ---
<DagobertoChaparrita Marily - Last Filed: 12/21/18 08:51> Date of Encounter: 12/21/18 Time of Encounter: 08:51 - Assessment and Plan (1) Small bowel obstruction Current Visit: Yes Status: Acute Appears to be resolving. Denies n/v and states pain resolved. We will cautiously start clears. If n/v occur, stop clears and place NG tube. ACS will continue to follow. Subjective Patient reports: no new complaints, feels better, pain is less, voiding w/o difficulty, flatus, afebrile Narrative: Denies nausea. States abdomen "feels fine." Objective Vital Signs - Last 8 Hours Temp Pulse Resp BP Pulse Ox 12/21/18 07:25 98.1 F 104 16 163/78 95 12/21/18 04:10 97.9 F 50 16 116/54 94 Intake and Output 12/20/18 12/21/18 12/21/18 23:59 07:59 15:59 Intake Total 1000 / 2000 1000 / 1000 Output Total 250 / 250 250 / 250 Balance 750 / 1750 750 / 750 Intake: IV Fluids 1000 / 2000 1000 / 1000 0.9 % Sodium Chloride 1,000 ML 1000 / 1000 1000 / 1000 @ 125 mls/hr IVC .Q8H [facility] Rx#: [id number] Oral 0 / 0 0 / 0 Output: Urine 250 / 250 0 / 0 Straight Cath 250 / 250 Other: Meal Lunch Percent of Meal Consumed 0% Weight 58.6 kg Blood Glucose* 115 107 Patient Weight 12/21/18 23:59 Weight 58.6 kg - General physical appearance well nourished, no distress - ENT atraumatic, normocephalic - Respiratory normal expansion, normal respiratory effort - Abdomen Abdomen: Present: bowel sounds present, soft, non tender - Psychiatric oriented to time, oriented to person, oriented to place - Labs 12/21/18 08:20 12/21/18 01:45 Diabetes panel 12/20/18 12/21/18 Range/Units 09:17 01:45 Sodium 138 143 (136-145) mEq/L Potassium 5.0 4.8 (3.5-5.1) mEq/L Chloride 105 116 H (98-107) mEq/L Carbon Dioxide 18 L 21 L (23-29) mEq/L BUN 38 H 39 H (8-23) mg/dL Creatinine 1.75 H 1.80 H (0.60-1.20) mg/dL Glucose 336 H 107 H (70-105) mg/dL Calcium 10.3 8.6 (8.6-10.3) mg/dL AST 16 (13-39) Units/L ALT 11 (7-52) Units/L Alkaline Phosphatase 147 H (34-104) Units/L Albumin 4.3 (3.5-5.7) g/dL Calcium panel 12/20/18 12/21/18 Range/Units 09:17 01:45 Calcium 10.3 8.6 (8.6-10.3) mg/dL Albumin 4.3 (3.5-5.7) g/dL Pituitary panel 12/20/18 12/21/18 Range/Units 09:17 01:45 Sodium 138 143 (136-145) mEq/L Potassium 5.0 4.8 (3.5-5.1) mEq/L Chloride 105 116 H (98-107) mEq/L Carbon Dioxide 18 L 21 L (23-29) mEq/L BUN 38 H 39 H (8-23) mg/dL Creatinine 1.75 H 1.80 H (0.60-1.20) mg/dL Glucose 336 H 107 H (70-105) mg/dL Calcium 10.3 8.6 (8.6-10.3) mg/dL Adrenal panel 12/20/18 12/21/18 Range/Units 09:17 01:45 Sodium 138 143 (136-145) mEq/L Potassium 5.0 4.8 (3.5-5.1) mEq/L Chloride 105 116 H (98-107) mEq/L Carbon Dioxide 18 L 21 L (23-29) mEq/L BUN 38 H 39 H (8-23) mg/dL Creatinine 1.75 H 1.80 H (0.60-1.20) mg/dL Glucose 336 H 107 H (70-105) mg/dL Calcium 10.3 8.6 (8.6-10.3) mg/dL Total Bilirubin 0.5 (0.3-1.0) mg/dL AST 16 (13-39) Units/L ALT 11 (7-52) Units/L Alkaline Phosphatase 147 H (34-104) Units/L Albumin 4.3 (3.5-5.7) g/dL Consult Discharge Plan - Plan Referrals: Ian Roberts MD [Primary Care Provider] - <Mariama Aviles - Last Filed: 12/21/18 09:26> Date of Encounter: 12/21/18 Objective Vital Signs - Last 8 Hours Temp Pulse Resp BP Pulse Ox 12/21/18 07:25 98.1 F 104 16 163/78 95 12/21/18 04:10 97.9 F 50 16 116/54 94 Intake and Output 12/20/18 12/21/18 12/21/18 23:59 07:59 15:59 Intake Total 1000 / 1999 1000 / 1000 Output Total 250 / 250 250 / 250 Balance 750 / 1750 750 / 750 Intake: IV Fluids 1000 / 1999 1000 / 1000 0.9 % Sodium Chloride 1,000 ML 1000 / 1000 1000 / 1000 @ 125 mls/hr IVC .Q8H [facility] Rx#: [id number] Oral 0 / 0 0 / 0 Output: Urine 250 / 250 0 / 0 Straight Cath 250 / 250 Other: Meal Lunch Percent of Meal Consumed 0% Weight 58.6 kg Blood Glucose* 115 107 Patient Weight 12/21/18 23:59 Weight 58.6 kg - Labs 12/21/18 08:20 12/21/18 01:45 Diabetes panel 12/20/18 12/21/18 Range/Units 09:17 01:45 Sodium 138 143 (136-145) mEq/L Potassium 5.0 4.8 (3.5-5.1) mEq/L Chloride 105 116 H (98-107) mEq/L Carbon Dioxide 18 L 21 L (23-29) mEq/L BUN 38 H 39 H (8-23) mg/dL Creatinine 1.75 H 1.80 H (0.60-1.20) mg/dL Glucose 336 H 107 H (70-105) mg/dL Calcium 10.3 8.6 (8.6-10.3) mg/dL AST 16 (13-39) Units/L ALT 11 (7-52) Units/L Alkaline Phosphatase 147 H (34-104) Units/L Albumin 4.3 (3.5-5.7) g/dL Calcium panel 12/20/18 12/21/18 Range/Units 09:17 01:45 Calcium 10.3 8.6 (8.6-10.3) mg/dL Albumin 4.3 (3.5-5.7) g/dL Pituitary panel 12/20/18 12/21/18 Range/Units 09:17 01:45 Sodium 138 143 (136-145) mEq/L Potassium 5.0 4.8 (3.5-5.1) mEq/L Chloride 105 116 H (98-107) mEq/L Carbon Dioxide 18 L 21 L (23-29) mEq/L BUN 38 H 39 H (8-23) mg/dL Creatinine 1.75 H 1.80 H (0.60-1.20) mg/dL Glucose 336 H 107 H (70-105) mg/dL Calcium 10.3 8.6 (8.6-10.3) mg/dL Adrenal panel 12/20/18 12/21/18 Range/Units 09:17 01:45 Sodium 138 143 (136-145) mEq/L Potassium 5.0 4.8 (3.5-5.1) mEq/L Chloride 105 116 H (98-107) mEq/L Carbon Dioxide 18 L 21 L (23-29) mEq/L BUN 38 H 39 H (8-23) mg/dL Creatinine 1.75 H 1.80 H (0.60-1.20) mg/dL Glucose 336 H 107 H (70-105) mg/dL Calcium 10.3 8.6 (8.6-10.3) mg/dL Total Bilirubin 0.5 (0.3-1.0) mg/dL AST 16 (13-39) Units/L ALT 11 (7-52) Units/L Alkaline Phosphatase 147 H (34-104) Units/L Albumin 4.3 (3.5-5.7) g/dL - Attending Attestation I examined this patient and my medical decision-making was reviewed with the PHOTOGRAPH ENLARGER. I agree with the documented findings, disposition and treatment plan as described to the extent set forth below. Pt without complaint. N/V and abdominal pain resolved. Abd soft, NT with increasing BS. SBO resolving. Start clears.
--- NOTE | 2018-12-21 11:49 | Internal Med Progress Note ---
Hospitalist Progress Note - Encounter Date of Encounter: 12/21/18 Time of Encounter: 09:00 - Subjective Interval History: Seen at bedside. Feeling better than yesterday. Denies nausea, vomiting at this point. Denied fever, chills, rigors. Has been putting the flatus but has not moved her bowels since the admission. Her hemoglobin dropped overnight, discussed with her, she denies any bleeding episode per rectum, hematemesis, any bleeding to vagina, hematuria. No other events overnight. - Exam Vitals: Temp Pulse Resp BP Pulse Ox 98.4 F 80 16 160/72 96 12/21/18 10:56 12/21/18 10:56 12/21/18 10:56 12/21/18 10:56 12/21/18 10:56 Exam: General: Alert and oriented, no physical distress, able to follow commands. HEENT: No thyromegaly, no lymphadenopathy, no discharge. Eyes: No discharge. Normal conjuctiva, no icterus Respiratory: Normal vesicular breathing, no added sounds, breathing equal in both sides. CVS: Normal heart sounds, no murmurs, regular rhthm, no edema Extremities: No peripheral edema, peripheral pulses intact. Lymph nodes: No lymphadenopathy Gastrointestinal: Soft, nontender abdomen, normal abdominal sounds. No distention noted. Bowel sounds normal. Genitourinary: No paravertebral tenderness. Skin: No rash, ulcers or wound. Neurological: Alert and oriented. No focal deficits. Cranial nerves II-XII intact. - Assessment and Plan (1) Small bowel obstruction Current Visit: Yes Status: Acute (2) Chronic kidney disease, stage III (moderate) Current Visit: Yes Status: Chronic (3) Diabetes mellitus, type 2 Current Visit: Yes Status: Chronic (4) Hypertension Current Visit: Yes Status: Chronic (5) Drop in hemoglobin Current Visit: Yes Status: Acute - Summary of Assessment and Plan Summary of Assessment and Plan: Acute small bowel obstruction: Patient presenting with symptoms of nausea and vomiting and abdominal pain. CT scan shows small bowel obstruction with transition point in the right lower quadrant within the ileum. Surgery on board, diet advanced to clear liquids. Continue IV hydration but at a lower rate. Diabetes mellitus type 2: Blood sugar levels reasonable range.. Continue low-dose sliding scale with meals. Hypertensive urgency: Blood pressure is better now. Continue as needed antihypertensive medications. Chronic kidney disease stage III: Creatinine 1.8. Slightly above baseline. Will monitor renal function closely. Monitor input and output. Anemia due to chronic kidney disease Drop in hemoglobin: Patient's baseline hemoglobin is around 10. In the morning, hemoglobin dropped to 7.0. Likely dilutional in context of IV fluids. Repeat hemoglobin 7.6. No signs of bleeding. Continue to recheck. No Intervention at this point.. DVT prophylaxis with subcutaneous heparin - Time Spent with Patient Total time spent is greater than 50% in coordination of care (as documented) at patient's floor/unit and/or counseling patient: Internal Medicine: Result - Labs CBC & Chem 7: 12/21/18 08:20 12/21/18 01:45 Labs: Short CBC 12/21/18 12/21/18 Range/Units 01:45 08:20 WBC 5.7 D (4.3-11.1) K/mcL Hgb 7.1 L D 7.6 L (11.5-15.4) g/dL Hct 23.0 L 24.1 L (35.3-44.9) % Plt Count 251 (140-400) K/mcL Neutrophils # 3.3 (1.6-8.9) K/mcL BMP 12/21/18 01:45 Sodium 143 Potassium 4.8 Chloride 116 H Carbon Dioxide 21 L BUN 39 H Creatinine 1.80 H Glucose 107 H Calcium 8.6 Consult Discharge Plan - Plan Referrals: Ina Roberts MD [Primary Care Provider] - (3) Diabetes mellitus, type 2 Qualifiers: Diabetes mellitus jail insulin use: with press tender long goods use Diabetes mellitus complication status: with hyperglycemia Qualified Code(s): E11.65 - Type 2 diabetes mellitus with hyperglycemia; Z79.4 - correction (current) use of insulin (4) Hypertension Qualifiers: Hypertension type: essential hypertension Qualified Code(s): I10 - Essential (primary) hypertension
[2018-12-21 14:08] LABS: Hematocrit 28.2 % (35.3-44.9); Hemoglobin 8.7 g/dL (11.5-15.4)
[2018-12-22 04:27] LABS: Basophils # 0.1 K/mcL (0.0-0.2); Basophils % 0.7 %; Eosinophils # 0.2 K/mcL (0.0-0.6); Eosinophils % 2.7 %; Hemoglobin 8.1 g/dL (11.5-15.4); Immature Granulocytes % 0.3 % (0-4); Lymphocytes # 2.1 K/mcL (0.6-4.6); Lymphocytes % 31.6 %; Mean Corpuscular HGB Conc 31.2 g/dL (31.6-35.5); Mean Corpuscular Hemoglobin 31.6 pg (28.0-33.3); Mean Corpuscular Volume 101.6 fL (83.0-100.0); Mean Platelet Volume 11.2 fL (9.4-12.4); Monocytes # 0.5 K/mcL (0.0-1.3); Monocytes % 6.8 %; Neutrophils # 3.9 K/mcL (1.6-8.9); Platelet Count 255 K/mcL (140-400); Red Blood Count 2.56 M/mcL (3.82-4.97); Segmented Neutrophils % 57.9 %; White Blood Count 6.8 K/mcL (4.3-11.1)
[2018-12-22 04:39] LABS: Potassium 4.4 mEq/L (3.5-5.1)
--- NOTE | 2018-12-22 08:10 | AcuteCareSurgery Progress Note ---
Date of Encounter: 12/22/18 Time of Encounter: 07:30 - Assessment and Plan (1) Small bowel obstruction Current Visit: Yes Status: Acute The patient is having bowel activity and bowel movement. She has normal bowel sounds. She is tolerating diet. We will advance her diet to regular. There is no evidence of clinical bowel obstruction. Surgery will sign off. Subjective Narrative: The patient is seen and evaluated on morning rounds with the acute care surgery team. The patient is having bowel movements and tolerating diet. We will plan to advance diet to regular. There is no evidence of clinical bowel obstruction. Surgery will sign off. Objective Vital Signs - Last 8 Hours Temp Pulse Resp BP Pulse Ox 12/22/18 06:28 97.8 F 95 16 163/73 97 12/22/18 05:01 157/68 12/22/18 04:19 98.4 F 59 16 177/84 98 Intake and Output 12/21/18 12/22/18 12/22/18 23:59 07:59 15:59 Intake Total 480 / 2680 0 / 0 Output Total 550 / 1050 400 / 400 Balance -70 / 1630 -400 / -400 Intake: Oral 480 / 1680 0 / 0 Output: Urine 550 / 800 400 / 400 Other: Meal Dinner Percent of Meal Consumed 50% Stool Size Small Stool Consistency soft Stool Characteristics Normal for Patient Stool Color Brown # Voids 1 # Urine Diapers 1 # Bowel Movements 1 0 # Bowel Movement Diapers 1 Blood Glucose* 135 114 - General physical appearance well developed, well nourished, no distress, no pain - Neck Neck exam: no masses, no bruits, trachea midline - Respiratory normal expansion, normal respiratory effort, clear to auscultation - Cardiovascular Cardiovascular exam: Present: RRR, no murmurs/rubs/gallops - Abdomen Abdomen: Present: bowel sounds present, soft, non tender - Neurologic normal coordination, normal sensation - Psychiatric oriented to time, oriented to person, oriented to place, speech is normal, m francisco intact - Labs 12/22/18 03:48 12/22/18 03:48 Diabetes panel 12/22/18 Range/Units 03:48 Sodium 141 (136-145) mEq/L Potassium 4.4 (3.5-5.1) mEq/L Chloride 115 H (98-107) mEq/L Carbon Dioxide 19 L (23-29) mEq/L BUN 36 H (8-23) mg/dL Creatinine 1.48 H (0.60-1.20) mg/dL Glucose 107 H (70-105) mg/dL Calcium 9.0 (8.6-10.3) mg/dL Calcium panel 12/22/18 Range/Units 03:48 Calcium 9.0 (8.6-10.3) mg/dL Pituitary panel 12/22/18 Range/Units 03:48 Sodium 141 (136-145) mEq/L Potassium 4.4 (3.5-5.1) mEq/L Chloride 115 H (98-107) mEq/L Carbon Dioxide 19 L (23-29) mEq/L BUN 36 H (8-23) mg/dL Creatinine 1.48 H (0.60-1.20) mg/dL Glucose 107 H (70-105) mg/dL Calcium 9.0 (8.6-10.3) mg/dL Adrenal panel 12/22/18 Range/Units 03:48 Sodium 141 (136-145) mEq/L Potassium 4.4 (3.5-5.1) mEq/L Chloride 115 H (98-107) mEq/L Carbon Dioxide 19 L (23-29) mEq/L BUN 36 H (8-23) mg/dL Creatinine 1.48 H (0.60-1.20) mg/dL Glucose 107 H (70-105) mg/dL Calcium 9.0 (8.6-10.3) mg/dL Consult Discharge Plan - Plan Referrals: Ian Roberts MD [Primary Care Provider] -
[2018-12-22] MEDS: Insulin LISPRO 300 UNITS/3 ML VIAL SQ SCH ×2 (08:47→12:41)
[2018-12-22] MEDS: 0.9 % Sodium Chloride 1,000 ML IVC SCH (12:42)
--- NOTE | 2018-12-22 13:29 | Discharge Summary ---
- NOTES TO OUTPATIENT PROVIDER Notes to Outpatient Provider: Presented with nausea and vomiting. CT scan concerning for the the intestinal blockage, conservative management and was able to tolerate oral feeds. 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 Cadena is a 83 year old female with a past medical history significant for diabetes mellitus, chronic kidney disease stage III, hypertension, presented to the hospital because of the nausea and vomiting. CT scan of the abdomen showed small bowel obstruction with a transition point in the right lower quadrant within the ileum. Surgery was consulted. Patient was deemed not a candidate for the surgery and had conservative management. Her condition improved with the conservative management. She was able to tolerate liquid diet yesterday. Today she was able to tolerate solid food. Moving her bowels, passing the flatus. Her nausea, vomiting and abdominal pain has been resolved. No other events overnight. Patient is being discharged in stable condition today. Patient is advised to advance the diet slowly. - Time Spent with Patient Total time spent providing and/or coordinating discharge services: 31 minutes - Discharge Medications Prescriptions: Continued Insulin DETEMIR [Levemir Flextouch] 15 unit SQ BID Aspirin 81 mg PO DAILY #30 tab.chew Cholecalciferol (D-3) [Vitamin D] 5,000 unit PO DAILY Losartan [Cozaar] 25 mg PO DAILY Gemfibrozil [Lopid] 600 mg PO BID Allopurinol [Zyloprim 300 MG] 300 mg PO DAILY Vitamin B Complex 1 each PO DAILY Multivitamin [One Daily Multivitamin] 1 tab PO DAILY Home Medications: Insulin DETEMIR [Levemir Flextouch] 15 unit SQ BID 12/31/15 [History] Aspirin 81 mg PO DAILY #30 tab.chew 01/03/16 [Rx] Allopurinol [Zyloprim 300 MG] 300 mg PO DAILY 09/15/16 [History] Cholecalciferol (D-3) [Vitamin D] 5,000 unit PO DAILY 09/15/16 [History] Gemfibrozil [Lopid] 600 mg PO BID 09/15/16 [History] Losartan [Cozaar] 25 mg PO DAILY 09/15/16 [History] Multivitamin [One Daily Multivitamin] 1 tab PO DAILY 09/15/16 [History] Vitamin B Complex 1 each PO DAILY 09/15/16 [History] Allergies/Adverse Reactions: Allergy/AdvReac Type Severity Reaction Status Date / Time Sulfa (Sulfonamide Allergy Rash Verified 12/20/18 14:17 Antibiotics) [id number] Inhibitors AdvReac Palpitation Verified 12/20/18 14:17 s [id number] Reductase AdvReac Cramping Verified 12/20/18 14:17 Inhibitor of the [Statins] Muscles Date of admission: 12/20/18 10:57 Primary care physician: Ian Roberts MD - Constitutional Vitals: Temp Pulse Resp BP Pulse Ox 97.7 F 74 17 215/95 96 12/22/18 10:30 12/22/18 10:30 12/22/18 10:30 12/22/18 10:30 12/22/18 10:30 Exam: General: Alert and oriented, no physical distress, able to follow commands. Respiratory: Normal vesicular breathing, no added sounds, breathing equal in both sides. CVS: Normal heart sounds, no murmurs, regular rhthm, no edema Extremities: No peripheral edema, peripheral pulses intact. Lymph nodes: No lymphadenopathy Gastrointestinal: Soft, nontender abdomen, normal abdominal sounds. No distention noted. Bowel sounds normal. Genitourinary: No paravertebral tenderness. Skin: No rash, ulcers or wound. Neurological: Alert and oriented. No focal deficits. Cranial nerves II-XII intact. - Patient Status Disposition: Home, Self-Care Condition: Fair Functional capacity at discharge: independent ambulation Overall status at discharge: patient is back to baseline - Discharge Instructions Follow Up With: Ian Roberts MD [Primary Care Provider] - - Diet and Activity Activity: increase activity as tolerated Diet: advance to your usual diet
[2018-12-22 14:29] VITALS: BP 200/91
[2018-12-22] MEDS ORDERED: FLU Vac QV 19-20 (6Month+)/PF 0.5 ML SYRINGE IM ONE (15:54)
== END 2018-12-22 16:00 | disposition home or self-care (01) ==
LOC: 3ANU 08:57 → EMEROOARM 08:57 → SUATTDRO 10:57 → 3ANU 11:16
PROVIDERS: ADMIT Internal Medicine; ATTEND Internal Medicine

== ENCOUNTER 2019-01-11 12:19 | Observation (INO) ==
[2019-01-11] MEDS ORDERED: Ondansetron 4 MG/2 ML VIAL IVP ONE (12:45)
[2019-01-11] MEDS ORDERED: Pantoprazole 40 MG VIAL IVP ONE ×2 (12:45→16:17)
[2019-01-11] MEDS ORDERED: Morphine Sulfate 2 MG/ML SYRINGE IVP ONE (12:45)
[2019-01-11] MEDS ORDERED: 0.9 % Sodium Chloride 1,000 ML IVC ONE (12:45)
[2019-01-11] MEDS ORDERED: Isovue-370 500 ML BOTTLE IVP ONE (12:47)
[2019-01-11] MEDS ORDERED: *HR* Labetalol 20 MG/4 ML SYRINGE IVP ONE (13:06)
[2019-01-11 13:22] LABS: Basophils % 0.3 %; Hematocrit 32.6 % (35.3-44.9); Hemoglobin 10.6 g/dL (11.5-15.4); Immature Granulocytes % 0.5 % (0-4); Lymphocytes # 0.6 K/mcL (0.6-4.6); Mean Corpuscular HGB Conc 32.5 g/dL (31.6-35.5); Mean Corpuscular Hemoglobin 31.7 pg (28.0-33.3); Mean Corpuscular Volume 97.6 fL (83.0-100.0); Mean Platelet Volume 11.1 fL (9.4-12.4); Monocytes # 0.2 K/mcL (0.0-1.3); Monocytes % 2.3 %; Neutrophils # 5.9 K/mcL (1.6-8.9); Platelet Count 337 K/mcL (140-400); Red Blood Count 3.34 M/mcL (3.82-4.97); Red Cell Distribution Width 14.5 % (11.5-14.5); Segmented Neutrophils % 87.9 %; White Blood Count 6.7 K/mcL (4.3-11.1)
[2019-01-11 13:30] LABS: Prothrombin Time 11.8 Seconds (9.4-12.1)
[2019-01-11 13:32] LABS: Activated Partial Thrombo Time 42.9 Seconds (26.0-36.0); Albumin 4.4 g/dL (3.5-5.7); Albumin/Globulin Ratio 1.4 (1.1-2.2); Bilirubin,Direct 0.1 mg/dL (0.0-0.2); Bilirubin,Indirect 0.3 mg/dL (0.0-1.0); Bilirubin,Total 0.4 mg/dL (0.3-1.0); Calcium 10.8 mg/dL (8.6-10.3); Globulin 3.2 g/dL (2.4-3.5); Potassium 4.6 mEq/L (3.5-5.1); Total Protein 7.6 g/dL (6.4-8.9)
[2019-01-11 15:10] LABS: Bilirubin,Urine Negative (Negative); Blood,Urine Moderate (Negative); Clarity,Urine Turbid (Clear); Color,Urine Yellow (Yellow); Glucose,Urine (UA) 250 mg/dL (Normal); Ketones,Urine Negative (Negative); Leukocyte Esterase,Urine Moderate (Negative); Nitrite,Urine Negative (Negative); Protein,Urine >=300 mg/dL (Neg-Trace); Urobilinogen,Urine Normal (Normal)
[2019-01-11 15:12] LABS: Bacteria,Urine Many per hpf (None-Few); Hyaline Casts,Urine None Seen per lpf (None-Few); Squamous Epithelial Cell,Urine Many per lpf (None-Few); WBC,Urine TNTC per hpf (0-3)
[2019-01-11] MEDS ORDERED: 0.9 % Sodium Chloride 1,000 ML IVC SCH ×2 (16:30→17:00)
[2019-01-11] MEDS ORDERED: Ondansetron 4 MG/2 ML VIAL IVP PRN (16:57)
[2019-01-11] MEDS ORDERED: Naloxone 0.4 MG/ML INJ IVP PRN (16:57)
[2019-01-11] MEDS ORDERED: *HR* Labetalol 20 MG/4 ML SYRINGE IVP PRN (17:03)
[2019-01-11] MEDS ORDERED: *HR* Dextrose 50 % in Water (Syg) 50 ML SYRINGE IVP PRN (17:06)
[2019-01-11] MEDS ORDERED: Dextrose Gel 15 GM/37.5 ML TUBE PO PRN ×2 (17:06)
[2019-01-11] MEDS ORDERED: D5% in Water 1,000 ML IVC PRN (17:06)
[2019-01-11] MEDS ORDERED: SODIUM CHLORIDE/NAHCO3/KCL/PEG 4,000 ML SOLN.RECON PO ONE (17:22)
[2019-01-11] MEDS: Pantoprazole 40 MG VIAL IVP SCH (18:54)
[2019-01-11] MEDS: Insulin LISPRO 300 UNITS/3 ML VIAL SQ SCH ×2 (18:57→23:45)
[2019-01-11 22:31] LABS: Hematocrit 29.1 % (35.3-44.9); Hemoglobin 9.8 g/dL (11.5-15.4)
[2019-01-12] MEDS: Insulin LISPRO 300 UNITS/3 ML VIAL SQ SCH ×2 (05:29→12:52)
[2019-01-12 06:01] LABS: Basophils % 0.7 %; Eosinophils # 0.1 K/mcL (0.0-0.6); Eosinophils % 1.9 %; Hematocrit 29.7 % (35.3-44.9); Hemoglobin 9.4 g/dL (11.5-15.4); Immature Granulocytes % 0.2 % (0-4); Lymphocytes # 2.1 K/mcL (0.6-4.6); Lymphocytes % 35.1 %; Mean Corpuscular HGB Conc 31.6 g/dL (31.6-35.5); Mean Corpuscular Hemoglobin 31.8 pg (28.0-33.3); Mean Corpuscular Volume 100.3 fL (83.0-100.0); Mean Platelet Volume 10.7 fL (9.4-12.4); Monocytes # 0.5 K/mcL (0.0-1.3); Monocytes % 7.8 %; Neutrophils # 3.2 K/mcL (1.6-8.9); Platelet Count 288 K/mcL (140-400); Red Blood Count 2.96 M/mcL (3.82-4.97); Red Cell Distribution Width 14.9 % (11.5-14.5); Segmented Neutrophils % 54.3 %; White Blood Count 5.9 K/mcL (4.3-11.1)
[2019-01-12] MEDS: Pantoprazole 40 MG VIAL IVP SCH (06:01)
[2019-01-12 06:21] LABS: Calcium 9.7 mg/dL (8.6-10.3)
[2019-01-12] MEDS ORDERED: Lidocaine -MPF 2% 2 ML VIAL ONE (08:23)
[2019-01-12] MEDS ORDERED: *HR* Propofol 200 MG/20 ML VIAL IVP ONE ×2 (08:23→09:30)
[2019-01-12] MEDS ORDERED: 0.9 % Sodium Chloride 500 ML IVC SCH (09:00)
[2019-01-12 15:14] VITALS: BP 136/61
== END 2019-01-12 17:07 | disposition home or self-care (01) ==
LOC: 3BNU 12:19 → EMEROOARM 12:19 → 3BNU 19:50
PROVIDERS: ADMIT Student in an Organized Health Care Education/Training Program; ATTEND Student in an Organized Health Care Education/Training Program
PROC: ENDOEBX (2019-01-12 09:15)

== ENCOUNTER 2019-01-21 04:12 | Inpatient (IN) ==
[2019-01-21 05:12] LABS: Basophils # 0.1 K/mcL (0.0-0.2); Basophils % 0.7 %; Eosinophils % 0.2 %; Hematocrit 22.7 % (35.3-44.9); Hemoglobin 7.3 g/dL (11.5-15.4); Lymphocytes # 1.6 K/mcL (0.6-4.6); Lymphocytes % 17.4 %; Mean Corpuscular HGB Conc 32.2 g/dL (31.6-35.5); Mean Corpuscular Hemoglobin 31.6 pg (28.0-33.3); Mean Corpuscular Volume 98.3 fL (83.0-100.0); Mean Platelet Volume 11.4 fL (9.4-12.4); Monocytes # 0.4 K/mcL (0.0-1.3); Monocytes % 4.1 %; Platelet Count 358 K/mcL (140-400); Red Blood Count 2.31 M/mcL (3.82-4.97); Red Cell Distribution Width 14.9 % (11.5-14.5); Segmented Neutrophils % 76.6 %; White Blood Count 9.2 K/mcL (4.3-11.1)
[2019-01-21 05:32] LABS: Potassium 5.3 mEq/L (3.5-5.1)
[2019-01-21] MEDS ORDERED: 0.9 % Sodium Chloride 250 ML ONE ×2 (07:13→11:53)
[2019-01-21] MEDS ORDERED: Naloxone 0.4 MG/ML INJ IVP PRN (08:12)
[2019-01-21] MEDS ORDERED: Ondansetron 4 MG/2 ML VIAL IVP PRN (08:12)
[2019-01-21] MEDS ORDERED: Dextrose Gel 15 GM/37.5 ML TUBE PO PRN ×2 (08:15)
[2019-01-21] MEDS ORDERED: *HR* Dextrose 50 % in Water (Syg) 50 ML SYRINGE IVP PRN (08:15)
[2019-01-21] MEDS ORDERED: D5% in Water 1,000 ML IVC PRN (08:15)
[2019-01-21] MEDS: Acetaminophen 325 MG TABLET PO PRN (14:22)
[2019-01-21] MEDS: Pantoprazole 40 MG VIAL IVP SCH ×2 (14:27→17:10)
[2019-01-21] MEDS: Insulin LISPRO 300 UNITS/3 ML VIAL SQ SCH ×3 (14:27→22:22)
[2019-01-21 15:39] LABS: Hematocrit 25.4 % (35.3-44.9); Hemoglobin 8.2 g/dL (11.5-15.4)
[2019-01-21 15:50] LABS: Calcium 8.6 mg/dL (8.6-10.3); Potassium 5.1 mEq/L (3.5-5.1)
[2019-01-21 19:35] LABS: Hematocrit 23.7 % (35.3-44.9); Hemoglobin 8.1 g/dL (11.5-15.4)
[2019-01-22 01:36] LABS: Basophils % 0.6 %; Eosinophils # 0.1 K/mcL (0.0-0.6); Hematocrit 22.3 % (35.3-44.9); Hemoglobin 7.3 g/dL (11.5-15.4); Immature Granulocytes % 1.2 % (0-4); Lymphocytes # 2.4 K/mcL (0.6-4.6); Mean Corpuscular HGB Conc 32.7 g/dL (31.6-35.5); Mean Corpuscular Hemoglobin 31.2 pg (28.0-33.3); Mean Corpuscular Volume 95.3 fL (83.0-100.0); Mean Platelet Volume 11.3 fL (9.4-12.4); Monocytes # 0.6 K/mcL (0.0-1.3); Monocytes % 8.6 %; Neutrophils # 3.7 K/mcL (1.6-8.9); Platelet Count 215 K/mcL (140-400); Red Blood Count 2.34 M/mcL (3.82-4.97); Red Cell Distribution Width 15.4 % (11.5-14.5); Segmented Neutrophils % 53.6 %; White Blood Count 6.9 K/mcL (4.3-11.1)
[2019-01-22 01:40] LABS: Prothrombin Time 11.8 Seconds (9.4-12.1)
[2019-01-22 01:55] LABS: Calcium 8.6 mg/dL (8.6-10.3); Potassium 4.8 mEq/L (3.5-5.1)
[2019-01-22] MEDS: Pantoprazole 40 MG VIAL IVP SCH ×2 (05:51→17:34)
[2019-01-22] MEDS: Insulin LISPRO 300 UNITS/3 ML VIAL SQ SCH ×4 (07:57→21:20)
[2019-01-22 08:18] LABS: Hematocrit 21.5 % (35.3-44.9)
[2019-01-22] MEDS: Multivit/Ca/Min/Fe/FA 1 TAB TABLET PO SCH (12:15)
[2019-01-22] MEDS: Vitamin B Complex/Vit C/Vit E 1 EACH TABLET PO SCH (12:15)
[2019-01-22] MEDS: Cholecalciferol (D-3) 1,000 UNIT (25MCG) TABLET PO SCH (12:16)
[2019-01-22] MEDS ORDERED: 0.9 % Sodium Chloride 250 ML ONE (12:50)
[2019-01-22 18:12] LABS: Hematocrit 27.3 % (35.3-44.9)
[2019-01-22 18:15] LABS: Hemoglobin 9.4 g/dL (11.5-15.4)
[2019-01-23 00:42] LABS: Hematocrit 30.4 % (35.3-44.9); Hematocrit 30.7 % (35.3-44.9); Hemoglobin 10.1 g/dL (11.5-15.4); Hemoglobin 10.5 g/dL (11.5-15.4); Mean Corpuscular HGB Conc 34.2 g/dL (31.6-35.5); Mean Corpuscular Hemoglobin 31.1 pg (28.0-33.3); Mean Corpuscular Volume 90.8 fL (83.0-100.0); Mean Platelet Volume 10.8 fL (9.4-12.4); Platelet Count 273 K/mcL (140-400); Red Blood Count 3.38 M/mcL (3.82-4.97); Red Cell Distribution Width 15.7 % (11.5-14.5); White Blood Count 7.4 K/mcL (4.3-11.1)
[2019-01-23 00:52] LABS: Calcium 9.5 mg/dL (8.6-10.3)
[2019-01-23] MEDS: Pantoprazole 40 MG VIAL IVP SCH ×2 (06:32→17:38)
[2019-01-23] MEDS: Cholecalciferol (D-3) 1,000 UNIT (25MCG) TABLET PO SCH (07:42)
[2019-01-23] MEDS: Vitamin B Complex/Vit C/Vit E 1 EACH TABLET PO SCH (07:43)
[2019-01-23] MEDS: Insulin LISPRO 300 UNITS/3 ML VIAL SQ SCH ×4 (07:43→21:47)
[2019-01-23] MEDS: Multivit/Ca/Min/Fe/FA 1 TAB TABLET PO SCH (07:44)
[2019-01-23] MEDS ORDERED: *HR* Propofol 200 MG/20 ML VIAL IVP ONE (13:49)
[2019-01-23] MEDS ORDERED: Lidocaine -MPF 2% 2 ML VIAL ONE (13:55)
[2019-01-23] MEDS ORDERED: *HR* PHENYLEPHRINE 1,000 MCG/10 ML SYRINGE IVP ONE (14:22)
[2019-01-23] MEDS: Acetaminophen 325 MG TABLET PO PRN (21:54)
[2019-01-24] MEDS: Pantoprazole 40 MG VIAL IVP SCH (06:03)
[2019-01-24 06:26] LABS: Hematocrit 24.9 % (35.3-44.9); Mean Corpuscular HGB Conc 32.1 g/dL (31.6-35.5); Mean Corpuscular Hemoglobin 31.1 pg (28.0-33.3); Platelet Count 219 K/mcL (140-400); Red Blood Count 2.57 M/mcL (3.82-4.97); Red Cell Distribution Width 15.5 % (11.5-14.5); White Blood Count 5.5 K/mcL (4.3-11.1)
[2019-01-24 06:28] LABS: Mean Corpuscular Volume 96.9 fL (83.0-100.0)
[2019-01-24 06:47] LABS: Calcium 9.1 mg/dL (8.6-10.3); Potassium 4.3 mEq/L (3.5-5.1)
[2019-01-24] MEDS: Vitamin B Complex/Vit C/Vit E 1 EACH TABLET PO SCH (08:26)
[2019-01-24] MEDS: Insulin LISPRO 300 UNITS/3 ML VIAL SQ SCH ×2 (08:26→12:19)
[2019-01-24] MEDS: Cholecalciferol (D-3) 1,000 UNIT (25MCG) TABLET PO SCH (08:26)
[2019-01-24] MEDS: Multivit/Ca/Min/Fe/FA 1 TAB TABLET PO SCH (08:26)
[2019-01-24 10:45] VITALS: BP 158/85
== END 2019-01-24 14:47 | disposition home or self-care (01) | DRG 919 ==
LOC: EMEROOARM 04:12 → 3ANU 04:12 → SUATTDRO 09:08 → 3ANU 10:49
PROVIDERS: ADMIT Internal Medicine; ATTEND Family Medicine

== ENCOUNTER 2019-01-25 14:29 | Observation (INO) ==
[2019-01-25] MEDS ORDERED: Naloxone 0.4 MG/ML INJ IVP PRN (16:47)
[2019-01-25] MEDS ORDERED: Ondansetron 4 MG/2 ML VIAL IVP PRN (16:47)
[2019-01-25] MEDS ORDERED: D5% in Water 1,000 ML IVC PRN (16:50)
[2019-01-25] MEDS ORDERED: *HR* Dextrose 50 % in Water (Syg) 50 ML SYRINGE IVP PRN (16:50)
[2019-01-25] MEDS ORDERED: Dextrose Gel 15 GM/37.5 ML TUBE PO PRN ×2 (16:50)
[2019-01-25] MEDS: Insulin LISPRO 300 UNITS/3 ML VIAL SQ SCH ×2 (18:24→23:44)
[2019-01-25] MEDS: 0.9 % Sodium Chloride 1,000 ML IVC SCH (18:33)
[2019-01-25] MEDS: Pantoprazole 40 MG VIAL IVP SCH (18:35)
[2019-01-25 18:36] LABS: Hematocrit 27.2 % (35.3-44.9)
[2019-01-25 22:40] LABS: Hematocrit 27.7 % (35.3-44.9); Hemoglobin 9.2 g/dL (11.5-15.4)
[2019-01-26] MEDS: Insulin LISPRO 300 UNITS/3 ML VIAL SQ SCH ×3 (05:42→18:10)
[2019-01-26] MEDS: Pantoprazole 40 MG VIAL IVP SCH ×2 (05:46→18:05)
[2019-01-26 06:29] LABS: Hemoglobin 8.4 g/dL (11.5-15.4); Mean Corpuscular HGB Conc 33.6 g/dL (31.6-35.5); Mean Corpuscular Hemoglobin 31.5 pg (28.0-33.3); Mean Corpuscular Volume 93.6 fL (83.0-100.0); Mean Platelet Volume 10.9 fL (9.4-12.4); Platelet Count 286 K/mcL (140-400); Red Blood Count 2.67 M/mcL (3.82-4.97); Red Cell Distribution Width 14.9 % (11.5-14.5); White Blood Count 5.6 K/mcL (4.3-11.1)
[2019-01-26 06:48] LABS: Calcium 9.1 mg/dL (8.6-10.3)
[2019-01-26] MEDS: 0.9 % Sodium Chloride 1,000 ML IVC SCH (07:57)
[2019-01-26] MEDS ORDERED: Lidocaine -MPF 2% 2 ML VIAL ONE (08:15)
[2019-01-27] MEDS: Insulin LISPRO 300 UNITS/3 ML VIAL SQ SCH ×6 (00:08→20:00)
[2019-01-27] MEDS: Pantoprazole 40 MG VIAL IVP SCH ×2 (06:21→18:27)
[2019-01-27 07:04] LABS: Hematocrit 23.9 % (35.3-44.9); Hemoglobin 7.9 g/dL (11.5-15.4); Mean Corpuscular HGB Conc 33.1 g/dL (31.6-35.5); Mean Corpuscular Hemoglobin 31.6 pg (28.0-33.3); Mean Corpuscular Volume 95.6 fL (83.0-100.0); Platelet Count 260 K/mcL (140-400); Red Cell Distribution Width 15.2 % (11.5-14.5); White Blood Count 5.8 K/mcL (4.3-11.1)
[2019-01-27 07:21] LABS: Potassium 4.2 mEq/L (3.5-5.1)
[2019-01-27 09:51] LABS: Hematocrit 23.7 % (35.3-44.9); Hemoglobin 7.5 g/dL (11.5-15.4)
[2019-01-27 15:21] LABS: Hematocrit 23.6 % (35.3-44.9); Hemoglobin 7.4 g/dL (11.5-15.4)
[2019-01-27 22:03] LABS: Hematocrit 25.1 % (35.3-44.9); Hemoglobin 8.4 g/dL (11.5-15.4)
[2019-01-28 04:50] LABS: Hematocrit 23.7 % (35.3-44.9); Hemoglobin 7.5 g/dL (11.5-15.4); Mean Corpuscular HGB Conc 31.6 g/dL (31.6-35.5); Mean Corpuscular Hemoglobin 31.5 pg (28.0-33.3); Mean Corpuscular Volume 99.6 fL (83.0-100.0); Mean Platelet Volume 10.9 fL (9.4-12.4); Platelet Count 262 K/mcL (140-400); Red Blood Count 2.38 M/mcL (3.82-4.97); Red Cell Distribution Width 15.3 % (11.5-14.5); White Blood Count 5.4 K/mcL (4.3-11.1)
[2019-01-28] MEDS: Pantoprazole 40 MG VIAL IVP SCH ×2 (05:07→18:17)
[2019-01-28 05:11] LABS: Calcium 9.1 mg/dL (8.6-10.3); Potassium 4.4 mEq/L (3.5-5.1)
[2019-01-28] MEDS: Insulin LISPRO 300 UNITS/3 ML VIAL SQ SCH ×4 (07:26→21:24)
[2019-01-28] MEDS ORDERED: 0.9 % Sodium Chloride 500 ML IVC ONE (07:53)
[2019-01-28 12:57] LABS: Hematocrit 27.4 % (35.3-44.9)
[2019-01-28 12:58] LABS: Hemoglobin 9.1 g/dL (11.5-15.4)
[2019-01-28 20:31] LABS: Hematocrit 25.3 % (35.3-44.9); Hemoglobin 8.2 g/dL (11.5-15.4)
[2019-01-29 04:57] LABS: Hematocrit 24.6 % (35.3-44.9); Hemoglobin 7.9 g/dL (11.5-15.4); Mean Corpuscular HGB Conc 32.1 g/dL (31.6-35.5); Mean Corpuscular Hemoglobin 31.7 pg (28.0-33.3); Mean Corpuscular Volume 98.8 fL (83.0-100.0); Mean Platelet Volume 10.9 fL (9.4-12.4); Platelet Count 283 K/mcL (140-400); Red Blood Count 2.49 M/mcL (3.82-4.97); White Blood Count 5.9 K/mcL (4.3-11.1)
[2019-01-29 05:17] LABS: Potassium 4.2 mEq/L (3.5-5.1)
[2019-01-29] MEDS: Pantoprazole 40 MG VIAL IVP SCH (05:28)
[2019-01-29] MEDS: Insulin LISPRO 300 UNITS/3 ML VIAL SQ SCH ×2 (08:26→13:14)
[2019-01-29 11:04] VITALS: BP 156/76
== END 2019-01-29 17:20 | disposition home or self-care (01) ==
LOC: 3ANU 14:29 → EMEROOARM 14:29 → SUATTDRO 16:35 → 3ANU 17:00
PROVIDERS: ADMIT Family Medicine; ATTEND Family Medicine
PROC: ENDOCCB (2019-01-26 08:55)

== ENCOUNTER 2019-05-11 15:22 | Inpatient (IN) ==
[2019-05-11] MEDS ORDERED: 0.9 % Sodium Chloride 1,000 ML IVC ONE (15:38)
[2019-05-11 16:04] LABS: Basophils % 0.4 %; Eosinophils # 0.1 K/mcL (0.0-0.6); Eosinophils % 1.3 %; Hematocrit 29.9 % (35.3-44.9); Hemoglobin 9.3 g/dL (11.5-15.4); Immature Granulocytes % 0.7 % (0-4); Lymphocytes % 10.7 %; Mean Corpuscular HGB Conc 31.1 g/dL (31.6-35.5); Mean Corpuscular Hemoglobin 30.6 pg (28.0-33.3); Mean Corpuscular Volume 98.4 fL (83.0-100.0); Mean Platelet Volume 10.6 fL (9.4-12.4); Monocytes # 0.6 K/mcL (0.0-1.3); Monocytes % 6.9 %; Neutrophils # 7.1 K/mcL (1.6-8.9); Platelet Count 393 K/mcL (140-400); Red Blood Count 3.04 M/mcL (3.82-4.97); Red Cell Distribution Width 15.1 % (11.5-14.5); White Blood Count 8.9 K/mcL (4.3-11.1)
[2019-05-11 16:08] LABS: Bilirubin,Urine Negative (Negative); Blood,Urine Small (Negative); Clarity,Urine Cloudy (Clear); Color,Urine Yellow (Yellow); Glucose,Urine (UA) Normal (Normal); Ketones,Urine Negative (Negative); Leukocyte Esterase,Urine Moderate (Negative); Nitrite,Urine Positive (Negative); PH,Urine 5.5 pH Units (5.0-8.0); Protein,Urine >=300 mg/dL (Neg-Trace); Specific Gravity,Urine 1.015 (1.010-1.025); Urobilinogen,Urine Normal (Normal)
[2019-05-11 16:10] LABS: Bacteria,Urine Many per hpf (None-Few); Hyaline Casts,Urine Few per lpf (None-Few); Squamous Epithelial Cell,Urine Many per lpf (None-Few); WBC,Urine TNTC per hpf (0-3)
[2019-05-11 16:17] LABS: INR 1.2; Prothrombin Time 13.1 Seconds (9.4-12.1)
[2019-05-11 16:19] LABS: Activated Partial Thrombo Time 36.8 Seconds (26.0-36.0)
[2019-05-11 16:24] LABS: Amphetamine Screen,Urine Negative ng/mL (Cutoff=1000); Barbiturate Screen,Urine Negative ng/mL (Cutoff=200); Benzodiazepines Screen,Urine Negative ng/mL (Cutoff=200); Cannabinoid Screen,Urine Negative ng/mL (Cutoff = 50); Cocaine Screen,Urine Negative ng/mL (Cutoff= 300); Opiate Screen,Urine Negative ng/mL (Cutoff=300); Phencyclidine Screen,Urine Negative ng/mL (Cutoff=25)
[2019-05-11 16:26] LABS: Renal Epithelial Cells,Urine Few per hpf (None-Few)
[2019-05-11 16:27] LABS: RBC,Urine 0-3 per hpf (0-3); Transitional Epi Cells,Urine Few per hpf (None-Few)
[2019-05-11 16:31] LABS: Alanine Aminotransferase 7 Units/L (7-52); Albumin 3.1 g/dL (3.5-5.7); Albumin/Globulin Ratio 0.9 (1.1-2.2); Alkaline Phosphatase 109 Units/L (34-104); Aspartate Amino Transferase 10 Units/L (13-39); BUN/Creatinine Ratio 22 (6-26); Bilirubin,Direct 0.1 mg/dL (0.0-0.2); Bilirubin,Indirect 0.1 mg/dL (0.0-1.0); Bilirubin,Total 0.2 mg/dL (0.3-1.0); Blood Urea Nitrogen 33 mg/dL (8-23); Calcium 9.6 mg/dL (8.6-10.3); Carbon Dioxide 17 mEq/L (23-29); Chloride 110 mEq/L (98-107); Creatine Kinase < 10 Units/L (30-223); Globulin 3.4 g/dL (2.4-3.5); Glucose 214 mg/dL (70-105); Osmolality,Calculated 296 (280-300); Sodium 136 mEq/L (136-145); Total Protein 6.5 g/dL (6.4-8.9); Troponin I < 0.03 ng/mL (< 0.04); eGFR For African Americans 41 (> 60); eGFR For Non-African Americans 34 (> 60)
[2019-05-11] MEDS ORDERED: cefTRIAXone 1,000 MG in Water for inj. (sterile) 10 ML IVP ONE (16:37)
[2019-05-11] MEDS ORDERED: Naloxone 0.4 MG/ML INJ IVP PRN (18:50)
[2019-05-11] MEDS: Ringers Solution, Lactated 1,000 ML IVC SCH (20:52)
[2019-05-11] MEDS: Insulin DETEMIR 100 UNIT/ML X5UNITS SQ SCH (21:55)
[2019-05-12 01:25] LABS: Basophils % 0.4 %; Eosinophils # 0.1 K/mcL (0.0-0.6); Hematocrit 31.1 % (35.3-44.9); Hemoglobin 9.8 g/dL (11.5-15.4); Immature Granulocytes % 0.8 % (0-4); Lymphocytes # 0.9 K/mcL (0.6-4.6); Lymphocytes % 8.3 %; Mean Corpuscular HGB Conc 31.5 g/dL (31.6-35.5); Mean Corpuscular Hemoglobin 30.8 pg (28.0-33.3); Mean Corpuscular Volume 97.8 fL (83.0-100.0); Mean Platelet Volume 10.7 fL (9.4-12.4); Monocytes # 0.6 K/mcL (0.0-1.3); Monocytes % 5.4 %; Neutrophils # 8.7 K/mcL (1.6-8.9); Platelet Count 458 K/mcL (140-400); Red Blood Count 3.18 M/mcL (3.82-4.97); Red Cell Distribution Width 14.6 % (11.5-14.5); Segmented Neutrophils % 84.1 %; White Blood Count 10.3 K/mcL (4.3-11.1)
[2019-05-12 01:36] LABS: Calcium 9.7 mg/dL (8.6-10.3); Potassium 4.5 mEq/L (3.5-5.1)
[2019-05-12] MEDS: *HR* Heparin 5,000 UNIT/ML VIAL SQ SCH ×2 (05:33→17:53)
[2019-05-12] MEDS: Ringers Solution, Lactated 1,000 ML IVC SCH (06:58)
[2019-05-12] MEDS: cefTRIAXone 1,000 MG in Water for inj. (sterile) 10 ML IVP SCH (07:47)
[2019-05-13 00:28] LABS: Basophils % 0.5 %; Eosinophils # 0.1 K/mcL (0.0-0.6); Eosinophils % 1.6 %; Hematocrit 25.6 % (35.3-44.9); Immature Granulocytes % 0.8 % (0-4); Lymphocytes # 1.2 K/mcL (0.6-4.6); Lymphocytes % 16.2 %; Mean Corpuscular HGB Conc 31.6 g/dL (31.6-35.5); Mean Corpuscular Hemoglobin 30.3 pg (28.0-33.3); Mean Corpuscular Volume 95.9 fL (83.0-100.0); Mean Platelet Volume 10.8 fL (9.4-12.4); Monocytes # 0.5 K/mcL (0.0-1.3); Monocytes % 7.2 %; Neutrophils # 5.5 K/mcL (1.6-8.9); Platelet Count 406 K/mcL (140-400); Red Blood Count 2.67 M/mcL (3.82-4.97); Red Cell Distribution Width 14.9 % (11.5-14.5); Segmented Neutrophils % 73.7 %; White Blood Count 7.5 K/mcL (4.3-11.1)
[2019-05-13 00:29] LABS: Hemoglobin 8.1 g/dL (11.5-15.4)
[2019-05-13 00:50] LABS: Calcium 9.1 mg/dL (8.6-10.3); Potassium 4.4 mEq/L (3.5-5.1)
[2019-05-13] MEDS: *HR* Heparin 5,000 UNIT/ML VIAL SQ SCH ×2 (05:59→16:50)
[2019-05-13] MEDS: cefTRIAXone 1,000 MG in Water for inj. (sterile) 10 ML IVP SCH (08:02)
[2019-05-13] MEDS: Insulin DETEMIR 100 UNIT/ML X5UNITS SQ SCH (19:43)
[2019-05-14] MEDS ORDERED: Milk and Molasses Enema 200 ML RC ONE (00:39)
[2019-05-14] MEDS ORDERED: Sennosides/Docusate Sodium TABLET PO SCH (00:45)
[2019-05-14] MEDS ORDERED: Sennosides/Docusate Sodium TABLET PO PRN (03:01)
[2019-05-14 05:24] LABS: Hematocrit 27.3 % (35.3-44.9); Hemoglobin 8.5 g/dL (11.5-15.4); Mean Corpuscular HGB Conc 31.1 g/dL (31.6-35.5); Mean Corpuscular Hemoglobin 30.5 pg (28.0-33.3); Mean Corpuscular Volume 97.8 fL (83.0-100.0); Mean Platelet Volume 10.6 fL (9.4-12.4); Platelet Count 477 K/mcL (140-400); Red Blood Count 2.79 M/mcL (3.82-4.97); Red Cell Distribution Width 14.6 % (11.5-14.5); White Blood Count 9.1 K/mcL (4.3-11.1)
[2019-05-14 06:14] LABS: Calcium 9.6 mg/dL (8.6-10.3)
[2019-05-14] MEDS: *HR* Heparin 5,000 UNIT/ML VIAL SQ SCH (06:28)
[2019-05-14] MEDS ORDERED: cephALEXin 500 MG CAPSULE PO SCH (09:00)
[2019-05-14 10:25] VITALS: BP 155/93
[2019-05-14] MEDS ORDERED: Artificial Tears SOLN 15 ML BOTTLE BOTH EYES SCH (13:00)
== END 2019-05-14 18:00 | DRG 689 ==
LOC: EMEROOARM 15:22 → 3NENU 15:22 → SUATTDRO 18:03 → 3NENU 19:50
PROVIDERS: ADMIT Internal Medicine; ATTEND Internal Medicine

== ENCOUNTER 2019-06-30 11:54 | Inpatient (IN) ==
[2019-06-30 12:51] LABS: Basophils # 0.1 K/mcL (0.0-0.2); Basophils % 0.6 %; Eosinophils # 0.3 K/mcL (0.0-0.6); Eosinophils % 3.1 %; Hematocrit 25.2 % (35.3-44.9); Hemoglobin 7.7 g/dL (11.5-15.4); Immature Granulocytes % 1.2 % (0-4); Lymphocytes # 1.5 K/mcL (0.6-4.6); Lymphocytes % 17.2 %; Mean Corpuscular HGB Conc 30.6 g/dL (31.6-35.5); Mean Corpuscular Hemoglobin 28.9 pg (28.0-33.3); Mean Corpuscular Volume 94.7 fL (83.0-100.0); Mean Platelet Volume 10.6 fL (9.4-12.4); Monocytes # 0.5 K/mcL (0.0-1.3); Monocytes % 5.6 %; Neutrophils # 6.1 K/mcL (1.6-8.9); Platelet Count 554 K/mcL (140-400); Red Blood Count 2.66 M/mcL (3.82-4.97); Red Cell Distribution Width 14.7 % (11.5-14.5); Segmented Neutrophils % 72.3 %; White Blood Count 8.4 K/mcL (4.3-11.1)
[2019-06-30 13:10] LABS: Calcium 10.1 mg/dL (8.6-10.3); Potassium 4.4 mEq/L (3.5-5.1)
[2019-06-30] MEDS ORDERED: Piperacillin/Tazobactam 3.375 GM in 0.9 % Sodium Chloride Mini Bag 100 ML IVPB ONE (14:06)
[2019-06-30] MEDS ORDERED: *HR* HYDROcodone/Acet 5/325 mg TABLET PO PRN (14:12)
[2019-06-30] MEDS ORDERED: Acetaminophen 325 MG TABLET PO PRN (14:12)
[2019-06-30] MEDS ORDERED: Ondansetron 4 MG/2 ML VIAL IVP PRN (14:12)
[2019-06-30] MEDS ORDERED: Naloxone 0.4 MG/ML INJ IVP PRN (14:12)
[2019-06-30] MEDS ORDERED: Artificial Tears SOLN 15 ML BOTTLE BOTH EYES PRN (14:18)
[2019-06-30] MEDS ORDERED: Dextrose Gel 15 GM/37.5 ML TUBE PO PRN ×2 (14:19)
[2019-06-30] MEDS ORDERED: *HR* Dextrose 50 % in Water (Syg) 50 ML SYRINGE IVP PRN (14:19)
[2019-06-30] MEDS ORDERED: D5% in Water 1,000 ML IVC PRN (14:19)
[2019-06-30] MEDS: Insulin LISPRO 300 UNITS/3 ML VIAL SQ SCH (17:40)
[2019-06-30] MEDS: gemfibroziL 600 MG TABLET PO SCH (20:28)
[2019-06-30] MEDS: Insulin DETEMIR 100 UNIT/ML X5UNITS SQ SCH (20:28)
[2019-07-01] MEDS: Piperacillin/Tazobactam 3.375 GM in 0.9 % Sodium Chloride Mini Bag 100 ML IVPB SCH ×3 (04:54→18:03)
[2019-07-01 05:56] LABS: Basophils # 0.1 K/mcL (0.0-0.2); Basophils % 0.6 %; Eosinophils # 0.2 K/mcL (0.0-0.6); Eosinophils % 2.4 %; Hematocrit 24.2 % (35.3-44.9); Hemoglobin 7.3 g/dL (11.5-15.4); Immature Granulocytes % 0.9 % (0-4); Lymphocytes # 1.9 K/mcL (0.6-4.6); Lymphocytes % 20.4 %; Mean Corpuscular HGB Conc 30.2 g/dL (31.6-35.5); Mean Corpuscular Hemoglobin 28.6 pg (28.0-33.3); Mean Corpuscular Volume 94.9 fL (83.0-100.0); Mean Platelet Volume 10.4 fL (9.4-12.4); Monocytes # 0.6 K/mcL (0.0-1.3); Monocytes % 6.2 %; Neutrophils # 6.5 K/mcL (1.6-8.9); Nucleated Red Blood Cells 0.2 /100 WBC (0); Platelet Count 556 K/mcL (140-400); Red Blood Count 2.55 M/mcL (3.82-4.97); Red Cell Distribution Width 14.6 % (11.5-14.5); Segmented Neutrophils % 69.5 %; White Blood Count 9.3 K/mcL (4.3-11.1)
[2019-07-01 05:57] LABS: INR 1.1
[2019-07-01 06:12] LABS: Calcium 10.1 mg/dL (8.6-10.3); Potassium 4.3 mEq/L (3.5-5.1)
[2019-07-01] MEDS: Insulin LISPRO 300 UNITS/3 ML VIAL SQ SCH ×3 (08:19→19:30)
[2019-07-01] MEDS: gemfibroziL 600 MG TABLET PO SCH ×2 (08:20→19:58)
[2019-07-01] MEDS: allopurinoL 300 MG TABLET PO SCH (08:20)
[2019-07-01] MEDS: Insulin DETEMIR 100 UNIT/ML X5UNITS SQ SCH ×3 (08:23→21:25)
[2019-07-02] MEDS: Piperacillin/Tazobactam 3.375 GM in 0.9 % Sodium Chloride Mini Bag 100 ML IVPB SCH ×2 (02:04→18:47)
[2019-07-02 02:39] LABS: Hematocrit 23.3 % (35.3-44.9); Hemoglobin 7.1 g/dL (11.5-15.4); Mean Corpuscular HGB Conc 30.5 g/dL (31.6-35.5); Mean Corpuscular Hemoglobin 29.2 pg (28.0-33.3); Mean Corpuscular Volume 95.9 fL (83.0-100.0); Platelet Count 473 K/mcL (140-400); Red Blood Count 2.43 M/mcL (3.82-4.97); Red Cell Distribution Width 14.6 % (11.5-14.5)
[2019-07-02 02:53] LABS: Calcium 9.6 mg/dL (8.6-10.3); Potassium 4.9 mEq/L (3.5-5.1)
[2019-07-02] MEDS ORDERED: Ethanol\\Acetic Acid\\Na Ace\\Ben 1,000 ML IRRIG.SOLN IR ONE ×2 (06:54→07:37)
[2019-07-02] MEDS ORDERED: *HR* FentaNYL (PF) 100 MCG/2 ML VIAL ONE ×2 (07:09→09:19)
[2019-07-02] MEDS ORDERED: Lidocaine -MPF 2% 2 ML VIAL ONE (07:09)
[2019-07-02] MEDS ORDERED: *HR* Propofol 200 MG/20 ML VIAL IVP ONE (07:09)
[2019-07-02] MEDS ORDERED: *HR* Succinylcholine 200 MG/10 ML VIAL IVP ONE (07:09)
[2019-07-02] MEDS ORDERED: Ondansetron 4 MG/2 ML VIAL ONE (07:09)
[2019-07-02] MEDS ORDERED: Acetaminophen IV 1,000 MG/100 ML INFUS..BTL ONE (08:37)
[2019-07-02] MEDS ORDERED: Albumin Human 5% 25.0 GM/500 ML IV.SOLN ONE (08:37)
[2019-07-02] MEDS: Insulin LISPRO 300 UNITS/3 ML VIAL SQ SCH ×3 (08:52→17:05)
[2019-07-02] MEDS: Insulin DETEMIR 100 UNIT/ML X5UNITS SQ SCH ×2 (08:58→23:31)
[2019-07-02] MEDS ORDERED: EPHEDrine 50 MG/ML VIAL ONE (08:58)
[2019-07-02] MEDS: allopurinoL 300 MG TABLET PO SCH (09:00)
[2019-07-02] MEDS ORDERED: Sodium Ferric Gluconat/Sucrose 125 MG in 0.9 % Sodium Chloride 100 ML IVPB SCH (09:00)
[2019-07-02] MEDS: gemfibroziL 600 MG TABLET PO SCH ×2 (09:00→20:23)
[2019-07-02] MEDS ORDERED: *HR* Rocuronium Bromide 50 MG/5 ML VIAL ONE (09:03)
[2019-07-02] MEDS ORDERED: ceFAZolin 2,000 MG in Water for inj. (sterile) 20 ML IVP ONE (09:05)
[2019-07-02] MEDS ORDERED: CeFAZolin Syr 2,000MG/20 ML 2,000 MG/20 ML SYRINGE IVPB ONE (09:15)
[2019-07-02] MEDS ORDERED: *HR* OxyCODONE Immed Rel 5 MG TABLET PO PRN (10:34)
[2019-07-02] MEDS ORDERED: Ondansetron 4 MG/2 ML VIAL IVP ONE (10:34)
[2019-07-02] MEDS ORDERED: *HR* Promethazine 25 MG/ML VIAL IVP PRN (10:34)
[2019-07-02] MEDS: *HR* HYDROmorphone PF 0.5 MG/0.5 ML SYRINGE IVP PRN ×2 (10:45→10:50)
[2019-07-02 10:52] LABS: Hematocrit 22.6 % (35.3-44.9); Hemoglobin 6.9 g/dL (11.5-15.4)
[2019-07-02] MEDS ORDERED: Ringers Solution, Lactated 1,000 ML IVC SCH (11:15)
[2019-07-02] MEDS ORDERED: MOM Conc 10 ML UD.LIQ PO PRN (11:29)
[2019-07-02] MEDS ORDERED: Sennosides 8.6 MG TABLET PO PRN (11:29)
[2019-07-02] MEDS ORDERED: Artificial Tears SOLN 15 ML BOTTLE BOTH EYES PRN (11:29)
[2019-07-02] MEDS ORDERED: *HR* Dextrose 50 % in Water (Syg) 50 ML SYRINGE IVP PRN (11:29)
[2019-07-02] MEDS ORDERED: Ondansetron 4 MG/2 ML VIAL IVP PRN (11:29)
[2019-07-02] MEDS ORDERED: D5% in Water 1,000 ML IVC PRN (11:29)
[2019-07-02] MEDS ORDERED: Dextrose Gel 15 GM/37.5 ML TUBE PO PRN ×2 (11:29)
[2019-07-02] MEDS ORDERED: 0.9 % Sodium Chloride 250 ML ONE (11:37)
[2019-07-02] MEDS: *HR* OxyCODONE/APAP 5/325 TABLET PO PRN (13:42)
[2019-07-02] MEDS: Ringers Solution, Lactated 1,000 ML IVC SCH (16:39)
[2019-07-02 17:44] LABS: Hematocrit 23.4 % (35.3-44.9); Hemoglobin 7.3 g/dL (11.5-15.4)
[2019-07-02] MEDS: *HR* OxyCODONE Immed Rel 5 MG TABLET PO PRN (20:23)
[2019-07-03] MEDS: *HR* OxyCODONE Immed Rel 5 MG TABLET PO PRN ×2 (01:44→08:36)
[2019-07-03] MEDS: Piperacillin/Tazobactam 3.375 GM in 0.9 % Sodium Chloride Mini Bag 100 ML IVPB SCH ×4 (01:45→20:42)
[2019-07-03 04:44] LABS: Hematocrit 22.2 % (35.3-44.9); Hemoglobin 6.7 g/dL (11.5-15.4)
[2019-07-03 05:06] LABS: Calcium 9.3 mg/dL (8.6-10.3); Potassium 4.5 mEq/L (3.5-5.1)
[2019-07-03 06:18] LABS: Bilirubin,Urine Negative (Negative); Blood,Urine Negative (Negative); Clarity,Urine Cloudy (Clear); Color,Urine Yellow (Yellow); Glucose,Urine (UA) Normal (Normal); Ketones,Urine Negative (Negative); Leukocyte Esterase,Urine Negative (Negative); Nitrite,Urine Negative (Negative); PH,Urine 5.5 pH Units (5.0-8.0); Protein,Urine 100 mg/dL (Neg-Trace); Specific Gravity,Urine 1.021 (1.010-1.025); Urobilinogen,Urine Normal (Normal)
[2019-07-03 06:20] LABS: Bacteria,Urine None Seen per hpf (None-Few); Hyaline Casts,Urine None Seen per lpf (None-Few); RBC,Urine 0-3 per hpf (0-3); Squamous Epithelial Cell,Urine Many per lpf (None-Few); WBC,Urine 0-3 per hpf (0-3)
[2019-07-03] MEDS ORDERED: 0.9 % Sodium Chloride 250 ML ONE ×2 (06:20→11:59)
[2019-07-03] MEDS: Insulin LISPRO 300 UNITS/3 ML VIAL SQ SCH ×3 (07:52→16:24)
[2019-07-03] MEDS: allopurinoL 300 MG TABLET PO SCH (08:25)
[2019-07-03] MEDS: gemfibroziL 600 MG TABLET PO SCH ×2 (08:25→20:34)
[2019-07-03] MEDS: Insulin DETEMIR 100 UNIT/ML X5UNITS SQ SCH (08:26)
[2019-07-03] MEDS ORDERED: Aspirin Enteric Coated 81 MG Tablet PO SCH (09:01)
[2019-07-03 10:39] LABS: Hematocrit 22.9 % (35.3-44.9); Hemoglobin 7.1 g/dL (11.5-15.4)
[2019-07-03] MEDS: *HR* OxyCODONE/APAP 5/325 TABLET PO PRN ×2 (14:08→17:52)
[2019-07-03 17:13] LABS: Hematocrit 25.2 % (35.3-44.9); Hemoglobin 7.8 g/dL (11.5-15.4)
[2019-07-03] MEDS: Pantoprazole 40 MG VIAL IVP SCH (17:37)
[2019-07-03] MEDS: Ringers Solution, Lactated 1,000 ML IVC SCH (20:43)
[2019-07-04] MEDS: Piperacillin/Tazobactam 3.375 GM in 0.9 % Sodium Chloride Mini Bag 100 ML IVPB SCH ×2 (01:46→09:04)
[2019-07-04 05:17] LABS: Basophils # 0.1 K/mcL (0.0-0.2); Basophils % 0.9 %; Eosinophils # 0.3 K/mcL (0.0-0.6); Eosinophils % 3.6 %; Hematocrit 26.4 % (35.3-44.9); Hemoglobin 8.1 g/dL (11.5-15.4); Immature Granulocytes % 1.4 % (0-4); Lymphocytes # 1.5 K/mcL (0.6-4.6); Lymphocytes % 16.3 %; Mean Corpuscular HGB Conc 30.7 g/dL (31.6-35.5); Mean Corpuscular Hemoglobin 29.6 pg (28.0-33.3); Mean Corpuscular Volume 96.4 fL (83.0-100.0); Mean Platelet Volume 9.9 fL (9.4-12.4); Monocytes # 0.8 K/mcL (0.0-1.3); Monocytes % 8.4 %; Neutrophils # 6.3 K/mcL (1.6-8.9); Platelet Count 338 K/mcL (140-400); Red Blood Count 2.74 M/mcL (3.82-4.97); Red Cell Distribution Width 15.2 % (11.5-14.5); Segmented Neutrophils % 69.4 %; White Blood Count 9.1 K/mcL (4.3-11.1)
[2019-07-04 05:32] LABS: Calcium 9.5 mg/dL (8.6-10.3); Potassium 4.6 mEq/L (3.5-5.1)
[2019-07-04] MEDS: *HR* OxyCODONE/APAP 5/325 TABLET PO PRN (05:34)
[2019-07-04] MEDS: Pantoprazole 40 MG VIAL IVP SCH ×2 (05:34→17:25)
[2019-07-04] MEDS: Insulin LISPRO 300 UNITS/3 ML VIAL SQ SCH ×3 (08:26→17:19)
[2019-07-04] MEDS: allopurinoL 300 MG TABLET PO SCH (08:48)
[2019-07-04] MEDS: gemfibroziL 600 MG TABLET PO SCH ×2 (08:48→20:10)
[2019-07-04] MEDS: Sodium Ferric Gluconat/Sucrose 125 MG in 0.9 % Sodium Chloride 100 ML IVPB SCH (08:52)
[2019-07-04] MEDS ORDERED: Aminoglycoside Consult 1 EACH MC ONE (09:08)
[2019-07-04] MEDS: cefTRIAXone 2,000 MG in Water for inj. (sterile) 20 ML IVP SCH (17:21)
[2019-07-05 00:51] LABS: Hematocrit 25.4 % (35.3-44.9); Hemoglobin 7.7 g/dL (11.5-15.4)
[2019-07-05 01:09] LABS: Calcium 9.7 mg/dL (8.6-10.3); Potassium 4.2 mEq/L (3.5-5.1)
[2019-07-05] MEDS: Pantoprazole 40 MG VIAL IVP SCH ×2 (06:28→17:07)
[2019-07-05] MEDS: Insulin LISPRO 300 UNITS/3 ML VIAL SQ SCH ×3 (08:12→17:07)
[2019-07-05] MEDS: allopurinoL 300 MG TABLET PO SCH (08:17)
[2019-07-05] MEDS: gemfibroziL 600 MG TABLET PO SCH ×2 (08:18→22:09)
[2019-07-05] MEDS: Ringers Solution, Lactated 1,000 ML IVC SCH (13:54)
[2019-07-05] MEDS: cefTRIAXone 2,000 MG in Water for inj. (sterile) 20 ML IVP SCH (17:07)
[2019-07-05] MEDS: *HR* OxyCODONE/APAP 5/325 TABLET PO PRN (22:09)
[2019-07-06] MEDS: Pantoprazole 40 MG VIAL IVP SCH ×2 (05:17→16:34)
[2019-07-06] MEDS: Ringers Solution, Lactated 1,000 ML IVC SCH (05:18)
[2019-07-06 06:34] LABS: Calcium 9.6 mg/dL (8.6-10.3); Potassium 3.8 mEq/L (3.5-5.1)
[2019-07-06] MEDS: Insulin LISPRO 300 UNITS/3 ML VIAL SQ SCH ×3 (08:30→16:38)
[2019-07-06] MEDS: allopurinoL 300 MG TABLET PO SCH (09:10)
[2019-07-06] MEDS: gemfibroziL 600 MG TABLET PO SCH ×2 (09:10→20:29)
[2019-07-06] MEDS: Sodium Ferric Gluconat/Sucrose 125 MG in 0.9 % Sodium Chloride 100 ML IVPB SCH (09:10)
[2019-07-06] MEDS ORDERED: *HR* Propofol 200 MG/20 ML VIAL IVP ONE (14:42)
[2019-07-06] MEDS: cefTRIAXone 2,000 MG in Water for inj. (sterile) 20 ML IVP SCH (16:34)
[2019-07-07 02:51] LABS: Hematocrit 27.7 % (35.3-44.9); Hemoglobin 8.4 g/dL (11.5-15.4)
[2019-07-07 03:12] LABS: Calcium 9.7 mg/dL (8.6-10.3); Potassium 3.9 mEq/L (3.5-5.1)
[2019-07-07] MEDS: Pantoprazole 40 MG VIAL IVP SCH (05:45)
[2019-07-07] MEDS: *HR* OxyCODONE/APAP 5/325 TABLET PO PRN (08:54)
[2019-07-07] MEDS: gemfibroziL 600 MG TABLET PO SCH (08:54)
[2019-07-07] MEDS: allopurinoL 300 MG TABLET PO SCH (08:55)
[2019-07-07] MEDS: Insulin LISPRO 300 UNITS/3 ML VIAL SQ SCH ×2 (10:50→12:44)
[2019-07-07 16:44] VITALS: BP 182/70
[2019-07-07] MEDS: cefTRIAXone 2,000 MG in Water for inj. (sterile) 20 ML IVP SCH (17:00)
== END 2019-07-07 17:45 | disposition home health service (06) | DRG 483 ==
LOC: EMEROOARM 11:54 → 3NENU 11:54 → SUATTDRO 14:14 → 3NENU 15:15 → SUATTDRO 07-01 12:45
PROVIDERS: ADMIT Student in an Organized Health Care Education/Training Program; ATTEND Internal Medicine

== ENCOUNTER 2019-08-07 15:19 | Observation (INO) ==
[2019-08-07 16:00] LABS: Basophils # 0.1 K/mcL (0.0-0.2); Basophils % 1.3 %; Eosinophils # 0.3 K/mcL (0.0-0.6); Eosinophils % 4.7 %; Hematocrit 32.4 % (35.3-44.9); Hemoglobin 10.2 g/dL (11.5-15.4); Immature Granulocytes % 0.2 % (0-4); Lymphocytes # 1.6 K/mcL (0.6-4.6); Lymphocytes % 29.2 %; Mean Corpuscular HGB Conc 31.5 g/dL (31.6-35.5); Mean Corpuscular Hemoglobin 30.4 pg (28.0-33.3); Mean Corpuscular Volume 96.4 fL (83.0-100.0); Mean Platelet Volume 11.1 fL (9.4-12.4); Monocytes # 0.3 K/mcL (0.0-1.3); Monocytes % 5.7 %; Neutrophils # 3.1 K/mcL (1.6-8.9); Platelet Count 268 K/mcL (140-400); Red Blood Count 3.36 M/mcL (3.82-4.97); Red Cell Distribution Width 16.2 % (11.5-14.5); Segmented Neutrophils % 58.9 %; White Blood Count 5.3 K/mcL (4.3-11.1)
[2019-08-07 16:05] LABS: INR 0.9; Prothrombin Time 10.7 Seconds (9.4-12.1)
[2019-08-07 16:07] LABS: Activated Partial Thrombo Time 36.9 Seconds (26.0-36.0)
[2019-08-07 16:21] LABS: Alanine Aminotransferase 8 Units/L (7-52); Albumin 3.7 g/dL (3.5-5.7); Albumin/Globulin Ratio 1.1 (1.1-2.2); Alkaline Phosphatase 154 Units/L (34-104); Aspartate Amino Transferase 13 Units/L (13-39); BUN/Creatinine Ratio 21 (6-26); Bilirubin,Direct 0.1 mg/dL (0.0-0.2); Bilirubin,Indirect 0.1 mg/dL (0.0-1.0); Bilirubin,Total 0.2 mg/dL (0.3-1.0); Blood Urea Nitrogen 24 mg/dL (8-23); Calcium 10.2 mg/dL (8.6-10.3); Carbon Dioxide 21 mEq/L (23-29); Chloride 105 mEq/L (98-107); Globulin 3.3 g/dL (2.4-3.5); Glucose 348 mg/dL (70-105); Lipase 14 Units/L (11-82); Osmolality,Calculated 302 (280-300); Potassium 3.8 mEq/L (3.5-5.1); Sodium 137 mEq/L (136-145); eGFR For African Americans 55 (> 60); eGFR For Non-African Americans 46 (> 60)
[2019-08-07 16:22] LABS: Troponin I < 0.03 ng/mL (< 0.04)
[2019-08-07 17:38] LABS: Bilirubin,Urine Negative (Negative); Blood,Urine Trace (Negative); Clarity,Urine Cloudy (Clear); Color,Urine Yellow (Yellow); Glucose,Urine (UA) 250 mg/dL (Normal); Ketones,Urine Negative (Negative); Leukocyte Esterase,Urine Moderate (Negative); Nitrite,Urine Negative (Negative); Protein,Urine >=300 mg/dL (Neg-Trace); Urobilinogen,Urine Normal (Normal)
[2019-08-07 17:42] LABS: Bacteria,Urine None Seen per hpf (None-Few); Hyaline Casts,Urine None Seen per lpf (None-Few); Squamous Epithelial Cell,Urine Many per lpf (None-Few); WBC,Urine TNTC per hpf (0-3)
[2019-08-07 18:00] LABS: Yeast,Urine Many per hpf (None Seen)
[2019-08-07] MEDS ORDERED: cefTRIAXone 1,000 MG in Water for inj. (sterile) 10 ML IVP ONE ×2 (18:05→22:10)
[2019-08-07] MEDS ORDERED: Naloxone 0.4 MG/ML INJ IVP PRN (22:06)
[2019-08-07] MEDS ORDERED: Aspirin Enteric Coated 325 MG Tablet PO ONE (22:11)
[2019-08-08 07:54] LABS: Prothrombin Time 11.9 Seconds (9.4-12.1)
[2019-08-08 07:56] LABS: Basophils # 0.1 K/mcL (0.0-0.2); Basophils % 0.9 %; Eosinophils # 0.2 K/mcL (0.0-0.6); Eosinophils % 3.4 %; Hematocrit 30.9 % (35.3-44.9); Hemoglobin 9.5 g/dL (11.5-15.4); Immature Granulocytes % 0.2 % (0-4); Lymphocytes # 1.3 K/mcL (0.6-4.6); Lymphocytes % 20.4 %; Mean Corpuscular HGB Conc 30.7 g/dL (31.6-35.5); Mean Corpuscular Hemoglobin 29.4 pg (28.0-33.3); Mean Corpuscular Volume 95.7 fL (83.0-100.0); Mean Platelet Volume 11.6 fL (9.4-12.4); Monocytes # 0.4 K/mcL (0.0-1.3); Monocytes % 6.1 %; Neutrophils # 4.5 K/mcL (1.6-8.9); Platelet Count 291 K/mcL (140-400); Red Blood Count 3.23 M/mcL (3.82-4.97); Red Cell Distribution Width 16.5 % (11.5-14.5); White Blood Count 6.5 K/mcL (4.3-11.1)
[2019-08-08 08:11] LABS: Albumin 3.4 g/dL (3.5-5.7); Albumin/Globulin Ratio 1.2 (1.1-2.2); Bilirubin,Total 0.2 mg/dL (0.3-1.0); Calcium 10.1 mg/dL (8.6-10.3); Chol/HDL Ratio 3.5 (0-4.9); Globulin 2.9 g/dL (2.4-3.5); Magnesium 1.4 mg/dL (1.6-2.6); Phosphorous 3.7 mg/dL (2.7-4.5); Potassium 3.9 mEq/L (3.5-5.1); Total Protein 6.3 g/dL (6.4-8.9); Troponin I 0.03 ng/mL (< 0.04)
[2019-08-08] MEDS: Aspirin Enteric Coated 81 MG Tablet PO SCH (08:37)
[2019-08-08] MEDS: cefTRIAXone 2,000 MG in Water for inj. (sterile) 20 ML IVP SCH (08:37)
[2019-08-08 08:54] LABS: Estimated Average Glucose 160 mg/dl
[2019-08-08] MEDS ORDERED: levoFLOXacin 750 MG/150 ML 750 MG/150 ML BAG IVPB SCH (12:00)
[2019-08-09 04:02] LABS: Hematocrit 29.4 % (35.3-44.9); Mean Corpuscular HGB Conc 30.6 g/dL (31.6-35.5); Mean Corpuscular Hemoglobin 29.8 pg (28.0-33.3); Mean Corpuscular Volume 97.4 fL (83.0-100.0); Mean Platelet Volume 11.2 fL (9.4-12.4); Platelet Count 243 K/mcL (140-400); Red Blood Count 3.02 M/mcL (3.82-4.97); Red Cell Distribution Width 16.2 % (11.5-14.5); White Blood Count 6.7 K/mcL (4.3-11.1)
[2019-08-09 04:21] LABS: Calcium 9.5 mg/dL (8.6-10.3); Potassium 3.8 mEq/L (3.5-5.1)
[2019-08-09] MEDS ORDERED: 0.9 % Sodium Chloride 1,000 ML IVC ONE (07:41)
[2019-08-09] MEDS ORDERED: 0.9 % Sodium Chloride 1,000 ML IVC SCH (07:45)
[2019-08-09] MEDS: cefTRIAXone 2,000 MG in Water for inj. (sterile) 20 ML IVP SCH (10:16)
[2019-08-09] MEDS: Aspirin Enteric Coated 81 MG Tablet PO SCH (10:17)
[2019-08-09] MEDS: amLODIPine 5 MG TABLET PO SCH (10:17)
[2019-08-09] MEDS: allopurinoL 300 MG TABLET PO SCH (10:21)
[2019-08-10] MEDS ORDERED: D5% in Water 1,000 ML IVC PRN (01:16)
[2019-08-10] MEDS ORDERED: *HR* Dextrose 50 % in Water (Syg) 50 ML SYRINGE IVP PRN (01:16)
[2019-08-10] MEDS ORDERED: Dextrose Gel 15 GM/37.5 ML TUBE PO PRN ×2 (01:16)
[2019-08-10 06:18] LABS: Hematocrit 28.5 % (35.3-44.9); Hemoglobin 8.6 g/dL (11.5-15.4); Mean Corpuscular HGB Conc 30.2 g/dL (31.6-35.5); Mean Corpuscular Hemoglobin 29.5 pg (28.0-33.3); Mean Corpuscular Volume 97.6 fL (83.0-100.0); Mean Platelet Volume 11.4 fL (9.4-12.4); Platelet Count 224 K/mcL (140-400); Red Blood Count 2.92 M/mcL (3.82-4.97); White Blood Count 6.9 K/mcL (4.3-11.1)
[2019-08-10 06:40] LABS: Calcium 9.1 mg/dL (8.6-10.3); Potassium 3.7 mEq/L (3.5-5.1)
[2019-08-10] MEDS ORDERED: 0.9 % Sodium Chloride 500 ML IVC ONE (07:51)
[2019-08-10] MEDS ORDERED: carvediloL 6.25 MG TABLET PO SCH (08:00)
[2019-08-10] MEDS: cefTRIAXone 2,000 MG in Water for inj. (sterile) 20 ML IVP SCH (10:10)
[2019-08-10] MEDS: allopurinoL 300 MG TABLET PO SCH (10:11)
[2019-08-10] MEDS: amLODIPine 5 MG TABLET PO SCH (10:11)
[2019-08-10] MEDS: Aspirin Enteric Coated 81 MG Tablet PO SCH (10:11)
[2019-08-10] MEDS: Insulin LISPRO 300 UNITS/3 ML VIAL SQ SCH ×2 (10:14→12:53)
[2019-08-10] MEDS ORDERED: levoFLOXacin 750 MG TABLET PO ONE (11:04)
[2019-08-10 11:24] VITALS: BP 185/95
[2019-08-10] MEDS ORDERED: Insulin LISPRO 300 UNITS/3 ML VIAL SQ SCH (21:00)
== END 2019-08-10 14:26 | disposition home health service (06) ==
LOC: EMEROOARM 15:19 → 3ANU 15:19 → SUATTDRO 18:38 → 3ANU 19:23
PROVIDERS: ADMIT Internal Medicine; ATTEND Family Medicine

== ENCOUNTER 2019-08-20 11:27 | Inpatient (IN) ==
[2019-08-20] MEDS ORDERED: *HR* Metoprolol 5 MG/5 ML VIAL IVP ONE ×2 (11:50→12:58)
[2019-08-20 12:22] LABS: Basophils % 0.3 %; Hematocrit 36.3 % (35.3-44.9); Hemoglobin 11.3 g/dL (11.5-15.4); Immature Granulocytes % 0.4 % (0-4); Lymphocytes # 0.7 K/mcL (0.6-4.6); Lymphocytes % 4.8 %; Mean Corpuscular HGB Conc 31.1 g/dL (31.6-35.5); Mean Corpuscular Hemoglobin 29.7 pg (28.0-33.3); Mean Corpuscular Volume 95.3 fL (83.0-100.0); Monocytes # 0.3 K/mcL (0.0-1.3); Neutrophils # 13.1 K/mcL (1.6-8.9); Platelet Count 344 K/mcL (140-400); Red Blood Count 3.81 M/mcL (3.82-4.97); Red Cell Distribution Width 15.9 % (11.5-14.5); Segmented Neutrophils % 92.5 %
[2019-08-20 12:23] LABS: Prothrombin Time 11.3 Seconds (9.4-12.1)
[2019-08-20 12:24] LABS: White Blood Count 14.2 K/mcL (4.3-11.1)
[2019-08-20 12:26] LABS: Activated Partial Thrombo Time 41.5 Seconds (26.0-36.0)
[2019-08-20 12:28] LABS: Bilirubin,Urine Negative (Negative); Blood,Urine Small (Negative); Clarity,Urine Clear (Clear); Color,Urine Yellow (Yellow); Glucose,Urine (UA) 500 mg/dL (Normal); Ketones,Urine Negative (Negative); Leukocyte Esterase,Urine Negative (Negative); Nitrite,Urine Negative (Negative); PH,Urine 5.5 pH Units (5.0-8.0); Protein,Urine >=300 mg/dL (Neg-Trace); Specific Gravity,Urine 1.021 (1.010-1.025); Urobilinogen,Urine Normal (Normal)
[2019-08-20 12:31] LABS: Bacteria,Urine None Seen per hpf (None-Few); Hyaline Casts,Urine None Seen per lpf (None-Few); Squamous Epithelial Cell,Urine Many per lpf (None-Few)
[2019-08-20 12:40] LABS: Alanine Aminotransferase 8 Units/L (7-52); Albumin/Globulin Ratio 1.1 (1.1-2.2); Alkaline Phosphatase 170 Units/L (34-104); Aspartate Amino Transferase 13 Units/L (13-39); BUN/Creatinine Ratio 25 (6-26); Bilirubin,Direct 0.1 mg/dL (0.0-0.2); Bilirubin,Indirect 0.3 mg/dL (0.0-1.0); Bilirubin,Total 0.4 mg/dL (0.3-1.0); Blood Urea Nitrogen 36 mg/dL (8-23); Calcium 10.4 mg/dL (8.6-10.3); Carbon Dioxide 17 mEq/L (23-29); Chloride 106 mEq/L (98-107); Ethanol < 10 mg/dL (Less than 10); Globulin 3.5 g/dL (2.4-3.5); Glucose 401 mg/dL (70-105); Osmolality,Calculated 303 (280-300); Potassium 5.1 mEq/L (3.5-5.1); Sodium 134 mEq/L (136-145); Total Protein 7.5 g/dL (6.4-8.9); Troponin I < 0.03 ng/mL (< 0.04); eGFR For African Americans 42 (> 60); eGFR For Non-African Americans 35 (> 60)
[2019-08-20 12:50] LABS: Yeast,Urine Many per hpf (None Seen)
[2019-08-20 12:51] LABS: RBC,Urine 0-3 per hpf (0-3); Renal Epithelial Cells,Urine Few per hpf (None-Few)
[2019-08-20] MEDS ORDERED: 0.9 % Sodium Chloride 500 ML IVC STA (12:57)
[2019-08-20] MEDS ORDERED: Ondansetron 4 MG/2 ML VIAL IVP PRN (13:11)
[2019-08-20] MEDS ORDERED: *HR* Promethazine 25 MG/ML VIAL IVP PRN (13:11)
[2019-08-20] MEDS ORDERED: Acetaminophen 325 MG TABLET PO PRN (13:11)
[2019-08-20] MEDS: amLODIPine 5 MG TABLET PO SCH (14:17)
[2019-08-20] MEDS: Ringers Solution, Lactated 1,000 ML IVC SCH ×2 (15:07→22:51)
[2019-08-20] MEDS ORDERED: *HR* Dextrose 50 % in Water (Syg) 50 ML SYRINGE IVP PRN (15:19)
[2019-08-20] MEDS ORDERED: D5% in Water 1,000 ML IVC PRN (15:19)
[2019-08-20] MEDS ORDERED: Dextrose Gel 15 GM/37.5 ML TUBE PO PRN ×2 (15:19)
[2019-08-20 15:42] LABS: Lipase 10 Units/L (11-82)
[2019-08-20] MEDS: *HR* Heparin 5,000 UNIT/ML VIAL SQ SCH (16:21)
[2019-08-20] MEDS: carvediloL 6.25 MG TABLET PO SCH (16:22)
[2019-08-20] MEDS ORDERED: Insulin LISPRO 300 UNITS/3 ML VIAL SQ SCH ×2 (16:30→21:00)
[2019-08-20] MEDS ORDERED: carvediloL 6.25 MG TABLET PO SCH (17:00)
[2019-08-20] MEDS: Insulin DETEMIR 100 UNIT/ML X5UNITS SQ SCH (20:40)
[2019-08-20] MEDS: Insulin LISPRO 300 UNITS/3 ML VIAL SQ SCH (23:42)
[2019-08-21] MEDS ORDERED: Insulin LISPRO 300 UNITS/3 ML VIAL SQ SCH (00:04)
[2019-08-21] MEDS: Insulin LISPRO 300 UNITS/3 ML VIAL SQ SCH ×5 (00:50→18:02)
[2019-08-21 02:46] LABS: Hematocrit 31.7 % (35.3-44.9); Mean Corpuscular HGB Conc 31.5 g/dL (31.6-35.5); Mean Corpuscular Hemoglobin 29.9 pg (28.0-33.3); Mean Corpuscular Volume 94.6 fL (83.0-100.0); Mean Platelet Volume 10.5 fL (9.4-12.4); Platelet Count 322 K/mcL (140-400); Red Blood Count 3.35 M/mcL (3.82-4.97); Red Cell Distribution Width 15.9 % (11.5-14.5); White Blood Count 9.9 K/mcL (4.3-11.1)
[2019-08-21 03:06] LABS: Calcium 9.8 mg/dL (8.6-10.3); Magnesium 1.7 mg/dL (1.6-2.6); Potassium 4.1 mEq/L (3.5-5.1)
[2019-08-21] MEDS: *HR* Heparin 5,000 UNIT/ML VIAL SQ SCH ×2 (05:47→14:54)
[2019-08-21] MEDS: Insulin DETEMIR 100 UNIT/ML X5UNITS SQ SCH ×2 (07:56→22:43)
[2019-08-21] MEDS: carvediloL 6.25 MG TABLET PO SCH ×2 (08:04→12:54)
[2019-08-21] MEDS: Aspirin Enteric Coated 81 MG Tablet PO SCH (08:04)
[2019-08-21] MEDS: amLODIPine 5 MG TABLET PO SCH (08:05)
[2019-08-21] MEDS ORDERED: 0.9 % Sodium Chloride 1,000 ML ONE (10:19)
[2019-08-21] MEDS: 0.9 % Sodium Chloride 1,000 ML IVC SCH ×2 (11:34→21:45)
[2019-08-21] MEDS: cefTRIAXone 2,000 MG in 0.9 % Sodium Chloride Mini Bag 100 ML IVPB SCH (14:54)
[2019-08-22] MEDS: Insulin LISPRO 300 UNITS/3 ML VIAL SQ SCH ×4 (01:36→16:58)
[2019-08-22] MEDS: 0.9 % Sodium Chloride 1,000 ML IVC SCH (05:50)
[2019-08-22] MEDS: *HR* Heparin 5,000 UNIT/ML VIAL SQ SCH ×2 (06:07→18:52)
[2019-08-22 07:00] LABS: Basophils % 0.5 %; Eosinophils % 0.4 %; Hematocrit 31.8 % (35.3-44.9); Immature Granulocytes % 1.5 % (0-4); Lymphocytes # 1.4 K/mcL (0.6-4.6); Lymphocytes % 16.6 %; Mean Corpuscular HGB Conc 31.4 g/dL (31.6-35.5); Mean Corpuscular Hemoglobin 30.2 pg (28.0-33.3); Mean Corpuscular Volume 96.1 fL (83.0-100.0); Mean Platelet Volume 10.7 fL (9.4-12.4); Monocytes # 0.4 K/mcL (0.0-1.3); Monocytes % 4.5 %; Neutrophils # 6.3 K/mcL (1.6-8.9); Platelet Count 294 K/mcL (140-400); Red Blood Count 3.31 M/mcL (3.82-4.97); Red Cell Distribution Width 16.2 % (11.5-14.5); Segmented Neutrophils % 76.5 %; White Blood Count 8.2 K/mcL (4.3-11.1)
[2019-08-22 07:21] LABS: Calcium 9.3 mg/dL (8.6-10.3); Potassium 3.9 mEq/L (3.5-5.1)
[2019-08-22] MEDS: carvediloL 6.25 MG TABLET PO SCH ×2 (10:23→14:57)
[2019-08-22] MEDS: amLODIPine 5 MG TABLET PO SCH (10:23)
[2019-08-22] MEDS: Aspirin Enteric Coated 81 MG Tablet PO SCH (10:23)
[2019-08-22] MEDS: cefTRIAXone 2,000 MG in 0.9 % Sodium Chloride Mini Bag 100 ML IVPB SCH (10:37)
[2019-08-22] MEDS ORDERED: *HR* Labetalol 20 MG/4 ML SYRINGE IVP PRN (13:32)
[2019-08-22] MEDS ORDERED: amLODIPine 5 MG TABLET PO STA (14:22)
[2019-08-22] MEDS: Insulin DETEMIR 100 UNIT/ML X5UNITS SQ SCH (22:21)
[2019-08-22] MEDS: gemfibroziL 600 MG TABLET PO SCH (22:29)
[2019-08-23] MEDS: 0.9 % Sodium Chloride 1,000 ML IVC SCH (04:10)
[2019-08-23] MEDS: *HR* Heparin 5,000 UNIT/ML VIAL SQ SCH ×2 (06:04→07:43)
[2019-08-23 07:35] LABS: Basophils # 0.1 K/mcL (0.0-0.2); Eosinophils # 0.2 K/mcL (0.0-0.6); Eosinophils % 2.5 %; Hematocrit 26.3 % (35.3-44.9); Immature Granulocytes % 0.8 % (0-4); Lymphocytes # 2.2 K/mcL (0.6-4.6); Mean Corpuscular HGB Conc 31.2 g/dL (31.6-35.5); Mean Corpuscular Volume 96.3 fL (83.0-100.0); Mean Platelet Volume 10.4 fL (9.4-12.4); Monocytes # 0.7 K/mcL (0.0-1.3); Monocytes % 12.2 %; Neutrophils # 2.8 K/mcL (1.6-8.9); Platelet Count 259 K/mcL (140-400); Red Blood Count 2.73 M/mcL (3.82-4.97); Red Cell Distribution Width 16.5 % (11.5-14.5); Segmented Neutrophils % 46.5 %
[2019-08-23 07:43] LABS: Hemoglobin 8.2 g/dL (11.5-15.4)
[2019-08-23] MEDS: Insulin LISPRO 300 UNITS/3 ML VIAL SQ SCH ×2 (07:43→10:46)
[2019-08-23] MEDS: gemfibroziL 600 MG TABLET PO SCH (07:51)
[2019-08-23] MEDS: carvediloL 6.25 MG TABLET PO SCH (07:51)
[2019-08-23] MEDS: cefTRIAXone 2,000 MG in 0.9 % Sodium Chloride Mini Bag 100 ML IVPB SCH (07:51)
[2019-08-23] MEDS: amLODIPine 5 MG TABLET PO SCH (07:51)
[2019-08-23] MEDS: Aspirin Enteric Coated 81 MG Tablet PO SCH (07:51)
[2019-08-23 07:56] LABS: Calcium 9.1 mg/dL (8.6-10.3); Potassium 3.9 mEq/L (3.5-5.1)
[2019-08-23] MEDS ORDERED: allopurinoL 300 MG TABLET PO SCH (09:00)
[2019-08-23 11:17] VITALS: BP 106/52
== END 2019-08-23 13:55 | disposition home health service (06) | DRG 389 ==
LOC: EMEROOARM 11:27 → 3BNU 11:27 → 3ANU 18:48 → SUATTDRO 08-21 11:22
PROVIDERS: ADMIT Internal Medicine; ATTEND Internal Medicine

== ENCOUNTER 2019-11-29 17:28 | Inpatient (IN) ==
[2019-11-29] MEDS ORDERED: 0.9 % Sodium Chloride 1,000 ML IVC ONE (17:48)
[2019-11-29] MEDS ORDERED: Ondansetron 4 MG/2 ML VIAL IVP ONE (17:48)
[2019-11-29 18:42] LABS: Basophils % 0.7 %; Hematocrit 35.9 % (35.3-44.9); Hemoglobin 11.5 g/dL (11.5-15.4); Immature Granulocytes % 0.4 % (0-4); Lymphocytes # 0.8 K/mcL (0.6-4.6); Lymphocytes % 14.3 %; Mean Corpuscular Hemoglobin 31.7 pg (28.0-33.3); Mean Corpuscular Volume 98.9 fL (83.0-100.0); Mean Platelet Volume 11.8 fL (9.4-12.4); Monocytes # 0.1 K/mcL (0.0-1.3); Monocytes % 2.4 %; Neutrophils # 4.5 K/mcL (1.6-8.9); Platelet Count 274 K/mcL (140-400); Red Blood Count 3.63 M/mcL (3.82-4.97); Red Cell Distribution Width 15.8 % (11.5-14.5); Segmented Neutrophils % 82.2 %; White Blood Count 5.5 K/mcL (4.3-11.1)
[2019-11-29 18:49] LABS: Albumin 4.2 g/dL (3.5-5.7); Albumin/Globulin Ratio 1.3 (1.1-2.2); Bilirubin,Total 0.3 mg/dL (0.3-1.0); Globulin 3.2 g/dL (2.4-3.5); Potassium 4.8 mEq/L (3.5-5.1); Total Protein 7.4 g/dL (6.4-8.9)
[2019-11-29] MEDS ORDERED: MetroNIDAZOLE 500 MG/100 ML 500 MG/100 ML BAG IVPB ONE (18:55)
[2019-11-29] MEDS ORDERED: Ampicillin/Sulbactam 3,000 MG in 0.9 % Sodium Chloride Mini Bag 100 ML IVPB ONE (19:04)
[2019-11-29 19:38] LABS: Bilirubin,Urine Negative (Negative); Blood,Urine Negative (Negative); Clarity,Urine Clear (Clear); Color,Urine Light-Yellow (Yellow); Glucose,Urine (UA) 70 mg/dL (Normal); Ketones,Urine Negative (Negative); Leukocyte Esterase,Urine Negative (Negative); Nitrite,Urine Negative (Negative); PH,Urine 6.5 pH Units (5.0-8.0); Protein,Urine >=300 mg/dL (Neg-Trace); RBC,Urine 0-3 per hpf (0-3); Specific Gravity,Urine 1.014 (1.010-1.025); Squamous Epithelial Cell,Urine Few per hpf (None-Few); Urobilinogen,Urine Normal (Normal)
[2019-11-29] MEDS ORDERED: carvediloL 6.25 MG TABLET PO ONE (20:20)
[2019-11-29] MEDS ORDERED: 0.9 % Sodium Chloride 1,000 ML IVC SCH (22:45)
[2019-11-29] MEDS ORDERED: Naloxone 0.4 MG/ML INJ IVP PRN (22:45)
[2019-11-29] MEDS ORDERED: Ketorolac 15 MG/ML VIAL IVP PRN (22:45)
[2019-11-29] MEDS ORDERED: *HR* Dextrose 50 % in Water (Vial) 50 ML VIAL IVP PRN (23:27)
[2019-11-29] MEDS ORDERED: D5% in Water 1,000 ML IVC PRN (23:27)
[2019-11-29] MEDS ORDERED: Dextrose Gel 15 GM/37.5 ML TUBE PO PRN ×2 (23:27)
[2019-11-29] MEDS: Ondansetron 4 MG/2 ML VIAL IVP PRN (23:46)
[2019-11-30] MEDS: Insulin LISPRO 300 UNITS/3 ML VIAL SQ SCH ×4 (01:36→20:05)
[2019-11-30 02:04] LABS: Hematocrit 34.6 % (35.3-44.9); Hemoglobin 11.3 g/dL (11.5-15.4); Mean Corpuscular HGB Conc 32.7 g/dL (31.6-35.5); Mean Platelet Volume 11.8 fL (9.4-12.4); Platelet Count 311 K/mcL (140-400); Red Blood Count 3.53 M/mcL (3.82-4.97); Red Cell Distribution Width 15.5 % (11.5-14.5); White Blood Count 6.5 K/mcL (4.3-11.1)
[2019-11-30 02:30] LABS: Albumin 3.8 g/dL (3.5-5.7); Albumin/Globulin Ratio 1.3 (1.1-2.2); Bilirubin,Total 0.3 mg/dL (0.3-1.0); Calcium 10.3 mg/dL (8.6-10.3); Potassium 4.4 mEq/L (3.5-5.1); Total Protein 6.8 g/dL (6.4-8.9)
[2019-11-30] MEDS ORDERED: *HR* Heparin 5,000 UNIT/ML VIAL SQ SCH (06:00)
[2019-11-30] MEDS: Sodium Bicarbonate 75 MEQ in 0.45 % Sodium Chloride 1,000 ML IVC SCH (10:32)
[2019-11-30] MEDS: carvediloL 6.25 MG TABLET PO SCH ×2 (10:38→16:46)
[2019-11-30] MEDS: allopurinoL 300 MG TABLET PO SCH (10:38)
[2019-11-30] MEDS: Cholecalciferol (D-3) 1,000 UNIT (25MCG) TABLET PO SCH (10:38)
[2019-11-30] MEDS: amLODIPine 5 MG TABLET PO SCH (13:06)
[2019-11-30] MEDS: hydrALAZINE 10 MG TABLET PO PRN (13:06)
[2019-11-30] MEDS ORDERED: Ampicillin/Sulbactam 3,000 MG in 0.9 % Sodium Chloride Mini Bag 100 ML IVPB SCH (13:18)
[2019-11-30] MEDS ORDERED: *HR* HYDROcodone/Acet 5/325 mg TABLET PO PRN (13:19)
[2019-11-30] MEDS: Ampicillin/Sulbactam 3,000 MG in 0.9 % Sodium Chloride Mini Bag 100 ML IVPB SCH (16:41)
[2019-11-30] MEDS: *HR* Rivaroxaban 15 MG TABLET PO SCH (16:47)
[2019-11-30] MEDS: Ondansetron 4 MG/2 ML VIAL IVP PRN (20:38)
[2019-12-01] MEDS: Insulin LISPRO 300 UNITS/3 ML VIAL SQ SCH ×4 (01:26→17:16)
[2019-12-01] MEDS: Ampicillin/Sulbactam 3,000 MG in 0.9 % Sodium Chloride Mini Bag 100 ML IVPB SCH ×2 (01:27→19:30)
[2019-12-01] MEDS: Sodium Bicarbonate 75 MEQ in 0.45 % Sodium Chloride 1,000 ML IVC SCH ×2 (02:12→20:21)
[2019-12-01 04:32] LABS: Basophils % 0.9 %; Eosinophils # 0.1 K/mcL (0.0-0.6); Eosinophils % 1.8 %; Hematocrit 27.2 % (35.3-44.9); Immature Granulocytes % 0.2 % (0-4); Lymphocytes # 1.9 K/mcL (0.6-4.6); Lymphocytes % 42.1 %; Mean Corpuscular HGB Conc 31.6 g/dL (31.6-35.5); Mean Corpuscular Hemoglobin 31.5 pg (28.0-33.3); Mean Corpuscular Volume 99.6 fL (83.0-100.0); Mean Platelet Volume 11.3 fL (9.4-12.4); Monocytes # 0.4 K/mcL (0.0-1.3); Monocytes % 8.9 %; Neutrophils # 2.1 K/mcL (1.6-8.9); Platelet Count 249 K/mcL (140-400); Red Blood Count 2.73 M/mcL (3.82-4.97); Red Cell Distribution Width 15.7 % (11.5-14.5); Segmented Neutrophils % 46.1 %; White Blood Count 4.5 K/mcL (4.3-11.1)
[2019-12-01 04:34] LABS: Hemoglobin 8.6 g/dL (11.5-15.4)
[2019-12-01 04:52] LABS: Calcium 9.4 mg/dL (8.6-10.3); Magnesium 1.6 mg/dL (1.6-2.6); Phosphorous 3.2 mg/dL (2.7-4.5); Potassium 4.1 mEq/L (3.5-5.1)
[2019-12-01] MEDS: amLODIPine 5 MG TABLET PO SCH (09:00)
[2019-12-01] MEDS: Cholecalciferol (D-3) 1,000 UNIT (25MCG) TABLET PO SCH (09:00)
[2019-12-01] MEDS: carvediloL 6.25 MG TABLET PO SCH ×2 (09:00→19:31)
[2019-12-01] MEDS: Vitamin B Complex/Vit C/Vit E 1 EACH TABLET PO SCH (09:00)
[2019-12-01] MEDS: allopurinoL 300 MG TABLET PO SCH (09:00)
[2019-12-01] MEDS: *HR* Rivaroxaban 15 MG TABLET PO SCH (19:31)
[2019-12-02] MEDS: Insulin LISPRO 300 UNITS/3 ML VIAL SQ SCH ×4 (00:46→18:16)
[2019-12-02] MEDS: Ampicillin/Sulbactam 3,000 MG in 0.9 % Sodium Chloride Mini Bag 100 ML IVPB SCH ×2 (05:54→16:48)
[2019-12-02 10:32] LABS: Basophils # 0.1 K/mcL (0.0-0.2); Basophils % 0.6 %; Eosinophils # 0.1 K/mcL (0.0-0.6); Eosinophils % 1.6 %; Hematocrit 32.9 % (35.3-44.9); Immature Granulocytes % 0.4 % (0-4); Lymphocytes # 1.1 K/mcL (0.6-4.6); Lymphocytes % 13.9 %; Mean Corpuscular HGB Conc 31.9 g/dL (31.6-35.5); Mean Corpuscular Hemoglobin 31.4 pg (28.0-33.3); Mean Corpuscular Volume 98.5 fL (83.0-100.0); Mean Platelet Volume 11.9 fL (9.4-12.4); Monocytes # 0.5 K/mcL (0.0-1.3); Monocytes % 6.5 %; Neutrophils # 6.2 K/mcL (1.6-8.9); Platelet Count 283 K/mcL (140-400); Red Blood Count 3.34 M/mcL (3.82-4.97); Red Cell Distribution Width 15.7 % (11.5-14.5)
[2019-12-02 10:33] LABS: Estimated Average Glucose 151 mg/dl
[2019-12-02 10:39] LABS: Hemoglobin 10.5 g/dL (11.5-15.4)
[2019-12-02 10:54] LABS: Calcium 10.1 mg/dL (8.6-10.3); Magnesium 1.6 mg/dL (1.6-2.6); Potassium 4.3 mEq/L (3.5-5.1)
[2019-12-02] MEDS: allopurinoL 300 MG TABLET PO SCH (11:39)
[2019-12-02] MEDS: Vitamin B Complex/Vit C/Vit E 1 EACH TABLET PO SCH (11:39)
[2019-12-02] MEDS: amLODIPine 5 MG TABLET PO SCH (11:40)
[2019-12-02] MEDS: carvediloL 6.25 MG TABLET PO SCH ×2 (11:40→16:47)
[2019-12-02] MEDS: Cholecalciferol (D-3) 1,000 UNIT (25MCG) TABLET PO SCH (11:40)
[2019-12-02] MEDS: Ondansetron 4 MG/2 ML VIAL IVP PRN (14:31)
[2019-12-02] MEDS: *HR* Rivaroxaban 15 MG TABLET PO SCH (16:47)
[2019-12-02] MEDS: hydrALAZINE 10 MG TABLET PO PRN (16:47)
[2019-12-02] MEDS: Sodium Bicarbonate 75 MEQ in 0.45 % Sodium Chloride 1,000 ML IVC SCH (16:47)
[2019-12-03] MEDS: Insulin LISPRO 300 UNITS/3 ML VIAL SQ SCH ×5 (00:38→23:43)
[2019-12-03 01:53] LABS: Basophils % 0.6 %; Eosinophils # 0.1 K/mcL (0.0-0.6); Hematocrit 31.3 % (35.3-44.9); Immature Granulocytes % 0.4 % (0-4); Lymphocytes # 1.4 K/mcL (0.6-4.6); Lymphocytes % 20.3 %; Mean Corpuscular HGB Conc 31.9 g/dL (31.6-35.5); Mean Corpuscular Hemoglobin 31.4 pg (28.0-33.3); Mean Corpuscular Volume 98.4 fL (83.0-100.0); Mean Platelet Volume 11.9 fL (9.4-12.4); Monocytes # 0.6 K/mcL (0.0-1.3); Monocytes % 8.8 %; Neutrophils # 4.9 K/mcL (1.6-8.9); Platelet Count 272 K/mcL (140-400); Red Blood Count 3.18 M/mcL (3.82-4.97); Red Cell Distribution Width 15.3 % (11.5-14.5); Segmented Neutrophils % 68.9 %; White Blood Count 7.1 K/mcL (4.3-11.1)
[2019-12-03 02:18] LABS: Calcium 9.3 mg/dL (8.6-10.3); Magnesium 1.6 mg/dL (1.6-2.6); Potassium 4.3 mEq/L (3.5-5.1)
[2019-12-03] MEDS: Sodium Bicarbonate 75 MEQ in 0.45 % Sodium Chloride 1,000 ML IVC SCH ×3 (05:38→23:33)
[2019-12-03] MEDS: Ampicillin/Sulbactam 3,000 MG in 0.9 % Sodium Chloride Mini Bag 100 ML IVPB SCH ×2 (05:38→17:12)
[2019-12-03] MEDS: allopurinoL 300 MG TABLET PO SCH (09:16)
[2019-12-03] MEDS: Cholecalciferol (D-3) 1,000 UNIT (25MCG) TABLET PO SCH (09:16)
[2019-12-03] MEDS: carvediloL 6.25 MG TABLET PO SCH ×2 (09:16→15:16)
[2019-12-03] MEDS: Vitamin B Complex/Vit C/Vit E 1 EACH TABLET PO SCH (09:16)
[2019-12-03] MEDS: amLODIPine 5 MG TABLET PO SCH (09:17)
[2019-12-03] MEDS: *HR* Rivaroxaban 15 MG TABLET PO SCH (15:16)
[2019-12-04] MEDS: Insulin LISPRO 300 UNITS/3 ML VIAL SQ SCH ×2 (05:41→13:06)
[2019-12-04] MEDS: Ampicillin/Sulbactam 3,000 MG in 0.9 % Sodium Chloride Mini Bag 100 ML IVPB SCH (05:46)
[2019-12-04 06:24] LABS: Basophils % 0.6 %; Eosinophils # 0.2 K/mcL (0.0-0.6); Eosinophils % 2.4 %; Hematocrit 28.1 % (35.3-44.9); Immature Granulocytes % 0.3 % (0-4); Lymphocytes # 1.7 K/mcL (0.6-4.6); Lymphocytes % 24.7 %; Mean Corpuscular Hemoglobin 31.4 pg (28.0-33.3); Mean Corpuscular Volume 97.9 fL (83.0-100.0); Mean Platelet Volume 11.8 fL (9.4-12.4); Monocytes # 0.6 K/mcL (0.0-1.3); Monocytes % 7.9 %; Neutrophils # 4.5 K/mcL (1.6-8.9); Platelet Count 256 K/mcL (140-400); Red Blood Count 2.87 M/mcL (3.82-4.97); Red Cell Distribution Width 14.9 % (11.5-14.5); Segmented Neutrophils % 64.1 %
[2019-12-04 06:34] VITALS: BP 148/80
[2019-12-04 06:51] LABS: Calcium 9.1 mg/dL (8.6-10.3); Magnesium 1.6 mg/dL (1.6-2.6); Potassium 4.3 mEq/L (3.5-5.1)
[2019-12-04] MEDS ORDERED: Iron Sucrose Complex 250 MG in 0.9 % Sodium Chloride 250 ML IVPB ONE (07:43)
[2019-12-04] MEDS: Cholecalciferol (D-3) 1,000 UNIT (25MCG) TABLET PO SCH (09:04)
[2019-12-04] MEDS: carvediloL 6.25 MG TABLET PO SCH (09:05)
[2019-12-04] MEDS: Vitamin B Complex/Vit C/Vit E 1 EACH TABLET PO SCH (09:05)
[2019-12-04] MEDS: allopurinoL 300 MG TABLET PO SCH (09:06)
[2019-12-04] MEDS: amLODIPine 5 MG TABLET PO SCH (09:07)
[2019-12-04 11:01] LABS: Folate > 22.3 ng/mL (3.0-16.0); Vitamin B12 626 pg/mL (250-1100)
== END 2019-12-04 13:50 | disposition home or self-care (01) | DRG 438 ==
LOC: 3BNU 17:28 → EMEROOARM 17:28 → SUATTDRO 20:37 → 3BNU 21:40
PROVIDERS: ADMIT Student in an Organized Health Care Education/Training Program; ATTEND Pharmacist

== ENCOUNTER 2020-07-03 18:02 | Inpatient (IN) ==
[2020-07-03] MEDS ORDERED: Isovue-370 500 ML BOTTLE IVP ONE (18:21)
[2020-07-03 18:33] LABS: Hematocrit 29.9 % (35.3-44.9); Hemoglobin 9.7 g/dL (11.5-15.4); Mean Corpuscular HGB Conc 32.4 g/dL (31.6-35.5); Mean Corpuscular Hemoglobin 31.5 pg (28.0-33.3); Mean Corpuscular Volume 97.1 fL (83.0-100.0); Mean Platelet Volume 12.6 fL (9.4-12.4); Platelet Count 104 K/mcL (140-400); Red Blood Count 3.08 M/mcL (3.82-4.97); Red Cell Distribution Width 16.3 % (11.5-14.5)
[2020-07-03 18:40] LABS: White Blood Count 6.8 K/mcL (4.3-11.1)
[2020-07-03 18:43] LABS: INR 1.6; Prothrombin Time 18.2 Seconds (9.4-12.1)
[2020-07-03 18:45] LABS: Activated Partial Thrombo Time 57.8 Seconds (26.0-36.0)
[2020-07-03 18:48] LABS: BUN/Creatinine Ratio 23 (6-26); Blood Urea Nitrogen 47 mg/dL (8-23); Carbon Dioxide 13 mEq/L (23-29); Chloride 120 mEq/L (98-107); Glucose 220 mg/dL (70-105); Osmolality,Calculated 309 (280-300); Potassium 5.1 mEq/L (3.5-5.1); Sodium 140 mEq/L (136-145); eGFR For African Americans 28 (> 60); eGFR For Non-African Americans 23 (> 60)
[2020-07-03 18:49] LABS: Troponin I < 0.03 ng/mL (< 0.04)
[2020-07-03] MEDS ORDERED: 0.9 % Sodium Chloride 1,000 ML IVC ONE (18:51)
[2020-07-03] MEDS ORDERED: Ringers Solution, Lactated 1,000 ML IVC ONE (19:31)
[2020-07-03] MEDS ORDERED: Naloxone 0.4 MG/ML INJ IVP PRN ×2 (21:32→21:39)
[2020-07-03] MEDS ORDERED: Ondansetron 4 MG/2 ML VIAL IVP PRN (21:32)
[2020-07-03] MEDS ORDERED: D5% in Water 1,000 ML IVC PRN (21:34)
[2020-07-03] MEDS ORDERED: Dextrose Gel 15 GM/37.5 ML TUBE PO PRN ×2 (21:34)
[2020-07-03] MEDS ORDERED: *HR* Dextrose 50 % in Water (Vial) 50 ML VIAL IVP PRN (21:34)
[2020-07-03] MEDS ORDERED: Perflutren Lipid Microsphere 1.3 ML in 0.9 % Sodium Chloride 8.7 ML IVP PRN (21:40)
[2020-07-03 22:14] LABS: Creatine Kinase 49 Units/L (30-223)
[2020-07-03 22:23] LABS: Thyroid Stimulating Hormone 8.875 mcIU/mL (0.340-5.600)
[2020-07-03 22:52] LABS: Folate > 22.3 ng/mL (3.0-16.0); Vitamin B12 1310 pg/mL (250-1100)
[2020-07-03] MEDS ORDERED: Vancomycin 1,250 MG/262.5 ML IV.SOLN IVPB ONE (23:00)
[2020-07-04] MEDS: Insulin LISPRO 300 UNITS/3 ML VIAL SUBQ SCH ×5 (02:34→20:56)
[2020-07-04 04:27] LABS: Basophils % 0.7 %; Eosinophils # 0.1 K/mcL (0.0-0.6); Hematocrit 25.7 % (35.3-44.9); Hemoglobin 8.2 g/dL (11.5-15.4); Immature Granulocytes % 0.7 % (0-4); Immature Platelets 8.4 % (1.1-6.1); Lymphocytes # 0.9 K/mcL (0.6-4.6); Lymphocytes % 14.3 %; Mean Corpuscular HGB Conc 31.9 g/dL (31.6-35.5); Mean Corpuscular Hemoglobin 30.8 pg (28.0-33.3); Mean Corpuscular Volume 96.6 fL (83.0-100.0); Mean Platelet Volume 12.7 fL (9.4-12.4); Monocytes # 0.3 K/mcL (0.0-1.3); Monocytes % 4.8 %; Neutrophils # 4.7 K/mcL (1.6-8.9); Nucleated Red Blood Cells 0.8 /100 WBC (0); Red Blood Count 2.66 M/mcL (3.82-4.97); Red Cell Distribution Width 16.1 % (11.5-14.5); Segmented Neutrophils % 78.5 %
[2020-07-04 04:36] LABS: Platelet Count 95 K/mcL (140-400)
[2020-07-04 04:48] LABS: Calcium 8.8 mg/dL (8.6-10.3); Magnesium 1.8 mg/dL (1.6-2.6); Phosphorous 5.4 mg/dL (2.7-4.5); Potassium 4.9 mEq/L (3.5-5.1)
[2020-07-04 05:54] LABS: Bilirubin,Urine Negative (Negative); Blood,Urine Trace (Negative); Clarity,Urine Clear (Clear); Color,Urine Light-Yellow (Yellow); Glucose,Urine (UA) 200 mg/dL (Normal); Ketones,Urine Negative (Negative); Leukocyte Esterase,Urine Negative (Negative); Nitrite,Urine Negative (Negative); PH,Urine 6.5 pH Units (5.0-8.0); Protein,Urine >=600 mg/dL (Neg-Trace); RBC,Urine 0-3 per hpf (0-3); Specific Gravity,Urine 1.024 (1.010-1.025); Squamous Epithelial Cell,Urine Few per hpf (None-Few); Urobilinogen,Urine Normal (Normal); WBC,Urine 0-3 per hpf (0-3)
[2020-07-04] MEDS ORDERED: Cefepime HCl 2,000 MG in Water for inj. (sterile) 20 ML IVP SCH (06:00)
[2020-07-04] MEDS ORDERED: Ampicillin/Sulbactam 3,000 MG in 0.9 % Sodium Chloride Mini Bag 100 ML IVPB SCH (06:00)
[2020-07-04 06:22] LABS: Protein/Creatinine Ratio,Urine 12.32 mg/mg (0.00-0.20)
[2020-07-04] MEDS: Cholecalciferol (D-3) 1,000 UNIT (25MCG) TABLET PO SCH (09:57)
[2020-07-04] MEDS: carvediloL 6.25 MG TABLET PO SCH ×2 (09:57→17:39)
[2020-07-04] MEDS: Multivit/Ca/Min/Fe/FA 1 TAB TABLET PO SCH (09:57)
[2020-07-04] MEDS: amLODIPine 5 MG TABLET PO SCH (09:57)
[2020-07-04] MEDS ORDERED: Sodium Bicarbonate 150 MEQ in D5% in Water 1,000 ML IVC SCH (14:30)
[2020-07-04] MEDS: *HR* Rivaroxaban 15 MG TABLET PO SCH (17:38)
[2020-07-04] MEDS ORDERED: *HR* Rivaroxaban 15 MG TABLET PO SCH (18:00)
[2020-07-04] MEDS: Vitamin B Complex/Vit C/Vit E 1 EACH TABLET PO SCH (20:55)
[2020-07-05 01:58] LABS: Basophils # 0.1 K/mcL (0.0-0.2); Basophils % 0.6 %; Eosinophils # 0.1 K/mcL (0.0-0.6); Eosinophils % 0.6 %; Hematocrit 27.9 % (35.3-44.9); Immature Granulocytes % 0.6 % (0-4); Lymphocytes # 0.9 K/mcL (0.6-4.6); Mean Corpuscular HGB Conc 32.3 g/dL (31.6-35.5); Mean Corpuscular Hemoglobin 30.9 pg (28.0-33.3); Mean Corpuscular Volume 95.9 fL (83.0-100.0); Mean Platelet Volume 12.6 fL (9.4-12.4); Monocytes # 0.4 K/mcL (0.0-1.3); Monocytes % 4.3 %; Neutrophils # 7.6 K/mcL (1.6-8.9); Nucleated Red Blood Cells 0.2 /100 WBC (0); Platelet Count 114 K/mcL (140-400); Red Blood Count 2.91 M/mcL (3.82-4.97); Red Cell Distribution Width 16.6 % (11.5-14.5); Segmented Neutrophils % 83.9 %
[2020-07-05 02:12] LABS: Calcium 8.6 mg/dL (8.6-10.3); Potassium 4.9 mEq/L (3.5-5.1)
[2020-07-05 03:04] LABS: Hepatitis B Surface Antigen Nonreactive (Nonreactive)
[2020-07-05 03:32] LABS: Hepatitis C Virus Antibody Nonreactive (Nonreactive)
[2020-07-05 03:33] LABS: Hepatitis B Core IgM Nonreactive (Nonreactive)
[2020-07-05 03:34] LABS: Hepatitis A Antibody IgM Nonreactive (Nonreactive)
[2020-07-05] MEDS ORDERED: Cefepime HCl 2,000 MG in Water for inj. (sterile) 20 ML IVP SCH (07:00)
[2020-07-05] MEDS: Insulin LISPRO 300 UNITS/3 ML VIAL SUBQ SCH ×4 (07:49→18:17)
[2020-07-05] MEDS: Multivit/Ca/Min/Fe/FA 1 TAB TABLET PO SCH (09:00)
[2020-07-05] MEDS: Cholecalciferol (D-3) 1,000 UNIT (25MCG) TABLET PO SCH (09:00)
[2020-07-05] MEDS: carvediloL 6.25 MG TABLET PO SCH ×2 (09:33→17:06)
[2020-07-05] MEDS: amLODIPine 5 MG TABLET PO SCH (09:33)
[2020-07-05] MEDS: Thiamine (B-1) 100 MG in 0.9 % Sodium Chloride 50 ML IVPB SCH (12:36)
[2020-07-05] MEDS: levETIRAcetam 250 MG in 0.9 % Sodium Chloride 100 ML IVPB SCH ×2 (15:01→21:59)
[2020-07-05] MEDS: *HR* Rivaroxaban 15 MG TABLET PO SCH (17:06)
[2020-07-05] MEDS: Cefepime HCl 1,000 MG in 0.9 % Sodium Chloride Mini Bag 100 ML IVPB SCH (17:29)
[2020-07-05] MEDS: Vitamin B Complex/Vit C/Vit E 1 EACH TABLET PO SCH (21:45)
[2020-07-06] MEDS: Insulin LISPRO 300 UNITS/3 ML VIAL SUBQ SCH ×5 (00:24→17:56)
[2020-07-06 02:13] LABS: Basophils # 0.1 K/mcL (0.0-0.2); Basophils % 0.4 %; Eosinophils # 0.1 K/mcL (0.0-0.6); Eosinophils % 0.8 %; Hematocrit 27.5 % (35.3-44.9); Hemoglobin 8.9 g/dL (11.5-15.4); Immature Granulocytes % 0.4 % (0-4); Lymphocytes # 1.2 K/mcL (0.6-4.6); Lymphocytes % 9.6 %; Mean Corpuscular HGB Conc 32.4 g/dL (31.6-35.5); Mean Corpuscular Hemoglobin 31.3 pg (28.0-33.3); Mean Corpuscular Volume 96.8 fL (83.0-100.0); Mean Platelet Volume 12.1 fL (9.4-12.4); Monocytes # 0.4 K/mcL (0.0-1.3); Monocytes % 3.3 %; Neutrophils # 10.7 K/mcL (1.6-8.9); Platelet Count 119 K/mcL (140-400); Red Blood Count 2.84 M/mcL (3.82-4.97); Red Cell Distribution Width 16.5 % (11.5-14.5); Segmented Neutrophils % 85.5 %; White Blood Count 12.6 K/mcL (4.3-11.1)
[2020-07-06 02:31] LABS: Calcium 8.8 mg/dL (8.6-10.3)
[2020-07-06] MEDS: Cefepime HCl 1,000 MG in 0.9 % Sodium Chloride Mini Bag 100 ML IVPB SCH ×2 (06:21→17:57)
[2020-07-06] MEDS: amLODIPine 5 MG TABLET PO SCH (08:07)
[2020-07-06] MEDS: carvediloL 6.25 MG TABLET PO SCH ×2 (08:07→16:57)
[2020-07-06] MEDS: Cholecalciferol (D-3) 1,000 UNIT (25MCG) TABLET PO SCH (08:08)
[2020-07-06] MEDS: Multivit/Ca/Min/Fe/FA 1 TAB TABLET PO SCH (08:08)
[2020-07-06] MEDS: levETIRAcetam 250 MG in 0.9 % Sodium Chloride 100 ML IVPB SCH ×2 (09:24→20:43)
[2020-07-06] MEDS: Thiamine (B-1) 100 MG in 0.9 % Sodium Chloride 50 ML IVPB SCH (09:58)
[2020-07-06] MEDS: Albumin 25% 25gram/100mL 25 GM/100 ML IV.SOLN IVPB SCH (16:35)
[2020-07-06] MEDS: *HR* Rivaroxaban 15 MG TABLET PO SCH (16:57)
[2020-07-06] MEDS: Vitamin B Complex/Vit C/Vit E 1 EACH TABLET PO SCH (20:21)
[2020-07-07] MEDS: Insulin LISPRO 300 UNITS/3 ML VIAL SUBQ SCH ×4 (00:10→16:44)
[2020-07-07] MEDS: Albumin 25% 25gram/100mL 25 GM/100 ML IV.SOLN IVPB SCH ×3 (00:28→18:16)
[2020-07-07 02:57] LABS: Basophils % 0.5 %; Eosinophils # 0.1 K/mcL (0.0-0.6); Eosinophils % 1.7 %; Hematocrit 25.2 % (35.3-44.9); Hemoglobin 8.1 g/dL (11.5-15.4); Immature Granulocytes % 0.4 % (0-4); Lymphocytes % 11.8 %; Mean Corpuscular HGB Conc 32.1 g/dL (31.6-35.5); Mean Corpuscular Hemoglobin 31.5 pg (28.0-33.3); Mean Corpuscular Volume 98.1 fL (83.0-100.0); Mean Platelet Volume 11.9 fL (9.4-12.4); Monocytes # 0.7 K/mcL (0.0-1.3); Neutrophils # 6.4 K/mcL (1.6-8.9); Nucleated Red Blood Cells 0.2 /100 WBC (0); Platelet Count 112 K/mcL (140-400); Red Blood Count 2.57 M/mcL (3.82-4.97); Red Cell Distribution Width 16.5 % (11.5-14.5); Segmented Neutrophils % 77.6 %; White Blood Count 8.2 K/mcL (4.3-11.1)
[2020-07-07 03:03] LABS: Calcium 9.1 mg/dL (8.6-10.3)
[2020-07-07] MEDS: Cefepime HCl 1,000 MG in 0.9 % Sodium Chloride Mini Bag 100 ML IVPB SCH (05:56)
[2020-07-07] MEDS: carvediloL 6.25 MG TABLET PO SCH ×2 (09:35→17:48)
[2020-07-07] MEDS: amLODIPine 5 MG TABLET PO SCH (09:37)
[2020-07-07] MEDS: levETIRAcetam 250 MG in 0.9 % Sodium Chloride 100 ML IVPB SCH ×2 (09:39→20:41)
[2020-07-07] MEDS: Cholecalciferol (D-3) 1,000 UNIT (25MCG) TABLET PO SCH (10:02)
[2020-07-07] MEDS: Multivit/Ca/Min/Fe/FA 1 TAB TABLET PO SCH (10:05)
[2020-07-07] MEDS: Thiamine (B-1) 100 MG in 0.9 % Sodium Chloride 50 ML IVPB SCH (11:54)
[2020-07-07] MEDS: Piperacillin/Tazobactam 3.375 GM in 0.9 % Sodium Chloride Mini Bag 100 ML IVPB SCH (13:36)
[2020-07-07] MEDS: *HR* Rivaroxaban 15 MG TABLET PO SCH (17:46)
[2020-07-07] MEDS: Vitamin B Complex/Vit C/Vit E 1 EACH TABLET PO SCH (20:41)
[2020-07-08 00:52] LABS: Influenza A PCR Negative (Negative); Influenza B PCR Negative (Negative); Resp. Syncytial Virus PCR Negative (Negative)
[2020-07-08 01:08] LABS: SARS-CoV-2 by PCR (In House) Positive (Negative)
[2020-07-08] MEDS ORDERED: GuaiFENesin Liq 200 MG/10 ML UDC PO ONE (02:00)
[2020-07-08] MEDS: Albumin 25% 25gram/100mL 25 GM/100 ML IV.SOLN IVPB SCH ×2 (02:20→12:48)
[2020-07-08] MEDS: Piperacillin/Tazobactam 3.375 GM in 0.9 % Sodium Chloride Mini Bag 100 ML IVPB SCH ×2 (05:34→16:50)
[2020-07-08 05:38] LABS: Basophils # 0.1 K/mcL (0.0-0.2); Basophils % 0.6 %; Eosinophils # 0.1 K/mcL (0.0-0.6); Eosinophils % 0.7 %; Hematocrit 28.2 % (35.3-44.9); Immature Granulocytes % 1.8 % (0-4); Lymphocytes # 0.6 K/mcL (0.6-4.6); Mean Corpuscular HGB Conc 31.9 g/dL (31.6-35.5); Mean Corpuscular Hemoglobin 30.9 pg (28.0-33.3); Mean Corpuscular Volume 96.9 fL (83.0-100.0); Mean Platelet Volume 12.1 fL (9.4-12.4); Monocytes # 0.5 K/mcL (0.0-1.3); Monocytes % 5.2 %; Neutrophils # 8.4 K/mcL (1.6-8.9); Nucleated Red Blood Cells 0.2 /100 WBC (0); Platelet Count 106 K/mcL (140-400); Red Blood Count 2.91 M/mcL (3.82-4.97); Red Cell Distribution Width 16.1 % (11.5-14.5); Segmented Neutrophils % 85.7 %; White Blood Count 9.8 K/mcL (4.3-11.1)
[2020-07-08 05:56] LABS: Calcium 10.1 mg/dL (8.6-10.3); Potassium 4.5 mEq/L (3.5-5.1)
[2020-07-08] MEDS: Insulin LISPRO 300 UNITS/3 ML VIAL SUBQ SCH ×3 (08:30→17:19)
[2020-07-08] MEDS: Multivit/Ca/Min/Fe/FA 1 TAB TABLET PO SCH (08:35)
[2020-07-08] MEDS: amLODIPine 5 MG TABLET PO SCH (08:35)
[2020-07-08] MEDS: carvediloL 6.25 MG TABLET PO SCH ×2 (08:40→16:51)
[2020-07-08] MEDS: Cholecalciferol (D-3) 1,000 UNIT (25MCG) TABLET PO SCH (08:40)
[2020-07-08] MEDS: levETIRAcetam 250 MG in 0.9 % Sodium Chloride 100 ML IVPB SCH (10:57)
[2020-07-08] MEDS: Thiamine (B-1) 100 MG in 0.9 % Sodium Chloride 50 ML IVPB SCH (11:10)
[2020-07-08] MEDS: Thiamine (B-1) 100 MG TABLET PO SCH (16:51)
[2020-07-08] MEDS: Vitamin B Complex/Vit C/Vit E 1 EACH TABLET PO SCH (19:52)
[2020-07-08] MEDS: Apixaban 5 MG TABLET PO SCH (19:53)
[2020-07-08] MEDS: levETIRAcetam 250 MG TABLET PO SCH (19:54)
[2020-07-08] MEDS ORDERED: Albumin 25% 25gram/100mL 25 GM/100 ML IV.SOLN IVPB SCH (20:30)
[2020-07-09 03:20] LABS: Basophils % 0.5 %; Hematocrit 25.7 % (35.3-44.9); Hemoglobin 8.1 g/dL (11.5-15.4); Immature Granulocytes % 4.3 % (0-4); Lymphocytes # 0.5 K/mcL (0.6-4.6); Lymphocytes % 7.2 %; Mean Corpuscular HGB Conc 31.5 g/dL (31.6-35.5); Mean Corpuscular Hemoglobin 30.8 pg (28.0-33.3); Mean Corpuscular Volume 97.7 fL (83.0-100.0); Mean Platelet Volume 12.1 fL (9.4-12.4); Monocytes # 0.1 K/mcL (0.0-1.3); Monocytes % 1.2 %; Neutrophils # 5.7 K/mcL (1.6-8.9); Platelet Count 133 K/mcL (140-400); Red Blood Count 2.63 M/mcL (3.82-4.97); Red Cell Distribution Width 16.2 % (11.5-14.5); Segmented Neutrophils % 86.8 %; White Blood Count 6.5 K/mcL (4.3-11.1)
[2020-07-09 03:32] LABS: Calcium 10.3 mg/dL (8.6-10.3); Potassium 4.9 mEq/L (3.5-5.1)
[2020-07-09] MEDS: Piperacillin/Tazobactam 3.375 GM in 0.9 % Sodium Chloride Mini Bag 100 ML IVPB SCH ×2 (05:14→17:22)
[2020-07-09] MEDS: carvediloL 6.25 MG TABLET PO SCH ×2 (08:07→17:22)
[2020-07-09] MEDS: Insulin LISPRO 300 UNITS/3 ML VIAL SUBQ SCH ×3 (09:37→17:23)
[2020-07-09] MEDS: Apixaban 5 MG TABLET PO SCH ×2 (09:37→21:57)
[2020-07-09] MEDS: Cholecalciferol (D-3) 1,000 UNIT (25MCG) TABLET PO SCH (09:38)
[2020-07-09] MEDS: levETIRAcetam 250 MG TABLET PO SCH ×2 (09:38→21:57)
[2020-07-09] MEDS: amLODIPine 5 MG TABLET PO SCH (09:38)
[2020-07-09] MEDS: Thiamine (B-1) 100 MG TABLET PO SCH (09:38)
[2020-07-09] MEDS: Multivit/Ca/Min/Fe/FA 1 TAB TABLET PO SCH (09:38)
[2020-07-09 10:42] LABS: ABG Base Excess -12 mEq/L (-2 to 3); ABG HCO3 15 mEq/L (21-27); ABG Oxygen Saturation 91 % (95-98); ABG PCO2 35 mmHg (35-45); ABG PH 7.23 pH Units (7.32-7.45); ABG PO2 71 mmHg (85-104); ABG TCO2 16 mEq/L (20-26)
[2020-07-09] MEDS ORDERED: Sodium Bicarbonate 50 MEQ/50 ML VIAL IVP ONE (12:16)
[2020-07-09] MEDS ORDERED: Sodium Bicarbonate 150 MEQ in Water for inj. (sterile) 1,000 ML IVC SCH (12:30)
[2020-07-09] MEDS ORDERED: Vancomycin 1,500 MG/265 ML IV.SOLN IVPB SCH (13:00)
[2020-07-09] MEDS: Sodium Bicarbonate 50 MEQ/50 ML VIAL IVP SCH ×2 (13:14→21:57)
[2020-07-09 14:42] LABS: Albumin 3.6 g/dL (3.5-5.7); Calcium 10.5 mg/dL (8.6-10.3); Phosphorous 5.8 mg/dL (2.7-4.5)
[2020-07-09 14:45] LABS: % Iron Saturation 15 % (15-50); Iron 21 mcg/dL (50-170); Transferrin 99 mg/dL (203-362)
[2020-07-09 14:49] LABS: Complement C3 126 mg/dL (87-200)
[2020-07-09 15:03] LABS: Ferritin 233 ng/mL (10-120)
[2020-07-09 19:04] LABS: Calcium 10.2 mg/dL (8.6-10.3)
[2020-07-09] MEDS: Vitamin B Complex/Vit C/Vit E 1 EACH TABLET PO SCH (21:57)
[2020-07-10 01:51] LABS: Basophils % 0.3 %; Hematocrit 23.8 % (35.3-44.9); Hemoglobin 7.7 g/dL (11.5-15.4); Immature Granulocytes % 4.7 % (0-4); Lymphocytes # 0.5 K/mcL (0.6-4.6); Lymphocytes % 7.8 %; Mean Corpuscular HGB Conc 32.4 g/dL (31.6-35.5); Mean Platelet Volume 11.4 fL (9.4-12.4); Monocytes # 0.4 K/mcL (0.0-1.3); Monocytes % 6.6 %; Neutrophils # 5.2 K/mcL (1.6-8.9); Nucleated Red Blood Cells 0.9 /100 WBC (0); Platelet Count 162 K/mcL (140-400); Red Blood Count 2.48 M/mcL (3.82-4.97); Red Cell Distribution Width 16.1 % (11.5-14.5); Segmented Neutrophils % 80.6 %; White Blood Count 6.4 K/mcL (4.3-11.1)
[2020-07-10 01:57] LABS: Bacteria,Urine Few per hpf (None-Few); Bilirubin,Urine Negative (Negative); Blood,Urine Trace (Negative); Budding Yeast,Urine Many per hpf (None Seen); Clarity,Urine Turbid (Clear); Color,Urine Yellow (Yellow); Glucose,Urine (UA) 100 mg/dL (Normal); Ketones,Urine 10 mg/dL (Negative); Leukocyte Esterase,Urine Negative (Negative); Mucus,Urine Few per lpf (None-Few); Nitrite,Urine Negative (Negative); PH,Urine 6.5 pH Units (5.0-8.0); Protein,Urine >=600 mg/dL (Neg-Trace); RBC,Urine 30-50 per hpf (0-3); Specific Gravity,Urine 1.027 (1.010-1.025); Squamous Epithelial Cell,Urine Few per hpf (None-Few); Urobilinogen,Urine Normal (Normal); WBC,Urine 15-30 per hpf (0-3)
[2020-07-10 02:04] LABS: Sodium, Urine 39.4 mEq/L
[2020-07-10] MEDS: Sodium Bicarbonate 50 MEQ/50 ML VIAL IVP SCH ×2 (05:27→13:22)
[2020-07-10] MEDS: Piperacillin/Tazobactam 3.375 GM in 0.9 % Sodium Chloride Mini Bag 100 ML IVPB SCH ×2 (05:27→18:55)
[2020-07-10] MEDS: Insulin LISPRO 300 UNITS/3 ML VIAL SUBQ SCH ×3 (09:10→18:55)
[2020-07-10] MEDS: Apixaban 5 MG TABLET PO SCH ×3 (09:10→21:53)
[2020-07-10] MEDS: carvediloL 6.25 MG TABLET PO SCH ×2 (09:10→11:39)
[2020-07-10] MEDS: Thiamine (B-1) 100 MG TABLET PO SCH ×2 (09:11→11:38)
[2020-07-10] MEDS: amLODIPine 5 MG TABLET PO SCH ×2 (09:11→11:38)
[2020-07-10] MEDS: Multivit/Ca/Min/Fe/FA 1 TAB TABLET PO SCH ×2 (09:11→11:38)
[2020-07-10] MEDS: Cholecalciferol (D-3) 1,000 UNIT (25MCG) TABLET PO SCH ×2 (09:11→11:38)
[2020-07-10] MEDS: levETIRAcetam 250 MG in 0.9 % Sodium Chloride 100 ML IVPB SCH ×2 (09:55→21:52)
[2020-07-10] MEDS: Dexamethasone Sodium Phos/PF 10 MG/ML VIAL IVP SCH (09:55)
[2020-07-10] MEDS: levETIRAcetam 250 MG TABLET PO SCH (10:02)
[2020-07-10] MEDS: Pantoprazole 40 MG VIAL IVP SCH (11:41)
[2020-07-10 12:04] LABS: Triiodothyronine (T3) Free 1.43 pg/mL (2.50-3.90)
[2020-07-10] MEDS ORDERED: *HR* Atropine Sulfate 1 MG/10 ML SYRINGE IVP ONE (14:07)
[2020-07-10 14:39] LABS: ABG Base Excess -3 mEq/L (-2 to 3); ABG HCO3 21 mEq/L (21-27); ABG Oxygen Saturation 88 % (95-98); ABG PCO2 36 mmHg (35-45); ABG PH 7.38 pH Units (7.32-7.45); ABG PO2 55 mmHg (85-104); ABG TCO2 22 mEq/L (20-26)
[2020-07-10] MEDS ORDERED: Sodium Bicarbonate 150 MEQ in Water for inj. (sterile) 1,000 ML IVC SCH (14:45)
[2020-07-10] MEDS: Albumin 25% 25gram/100mL 25 GM/100 ML IV.SOLN IVPB SCH (15:52)
[2020-07-10] MEDS: Vitamin B Complex/Vit C/Vit E 1 EACH TABLET PO SCH (21:51)
[2020-07-11] MEDS: Albumin 25% 25gram/100mL 25 GM/100 ML IV.SOLN IVPB SCH ×2 (00:49→09:20)
[2020-07-11] MEDS: Insulin LISPRO 300 UNITS/3 ML VIAL SUBQ SCH ×4 (00:52→17:13)
[2020-07-11 02:17] LABS: Basophils % 0.3 %; Hematocrit 23.6 % (35.3-44.9); Hemoglobin 7.5 g/dL (11.5-15.4); Immature Granulocytes % 6.1 % (0-4); Lymphocytes # 0.5 K/mcL (0.6-4.6); Lymphocytes % 7.8 %; Mean Corpuscular HGB Conc 31.8 g/dL (31.6-35.5); Mean Corpuscular Hemoglobin 31.1 pg (28.0-33.3); Mean Corpuscular Volume 97.9 fL (83.0-100.0); Monocytes # 0.1 K/mcL (0.0-1.3); Monocytes % 1.2 %; Neutrophils # 4.9 K/mcL (1.6-8.9); Platelet Count 153 K/mcL (140-400); Red Blood Count 2.41 M/mcL (3.82-4.97); Red Cell Distribution Width 15.9 % (11.5-14.5); Segmented Neutrophils % 84.6 %; White Blood Count 5.8 K/mcL (4.3-11.1)
[2020-07-11 02:33] LABS: Calcium 9.7 mg/dL (8.6-10.3); Potassium 4.7 mEq/L (3.5-5.1)
[2020-07-11] MEDS: Piperacillin/Tazobactam 3.375 GM in 0.9 % Sodium Chloride Mini Bag 100 ML IVPB SCH ×2 (05:51→17:05)
[2020-07-11] MEDS: Levothyroxine 25 MCG TABLET PO SCH (05:51)
[2020-07-11] MEDS: Cholecalciferol (D-3) 1,000 UNIT (25MCG) TABLET PO SCH (09:25)
[2020-07-11] MEDS: amLODIPine 5 MG TABLET PO SCH (09:26)
[2020-07-11] MEDS: Thiamine (B-1) 100 MG TABLET PO SCH (09:26)
[2020-07-11] MEDS: Pantoprazole 40 MG VIAL IVP SCH (09:26)
[2020-07-11] MEDS: Dexamethasone Sodium Phos/PF 10 MG/ML VIAL IVP SCH (09:26)
[2020-07-11] MEDS: Apixaban 5 MG TABLET PO SCH ×2 (09:26→22:16)
[2020-07-11] MEDS: Multivit/Ca/Min/Fe/FA 1 TAB TABLET PO SCH (09:26)
[2020-07-11] MEDS: levETIRAcetam 250 MG in 0.9 % Sodium Chloride 100 ML IVPB SCH ×2 (09:27→22:17)
[2020-07-11] MEDS ORDERED: Furosemide 20 MG/2 ML VIAL IVP ONE (20:48)
[2020-07-11] MEDS: Insulin DETEMIR 100 UNIT/ML X5UNITS SUBQ SCH (22:16)
[2020-07-11] MEDS: Vitamin B Complex/Vit C/Vit E 1 EACH TABLET PO SCH (22:16)
[2020-07-12] MEDS: Insulin LISPRO 300 UNITS/3 ML VIAL SUBQ SCH ×4 (00:28→16:02)
[2020-07-12 03:04] LABS: Hematocrit 24.7 % (35.3-44.9); Hemoglobin 8.1 g/dL (11.5-15.4); Lymphocytes # 0.6 K/mcL (0.6-4.6); Mean Corpuscular HGB Conc 32.8 g/dL (31.6-35.5); Mean Corpuscular Hemoglobin 31.9 pg (28.0-33.3); Mean Corpuscular Volume 97.2 fL (83.0-100.0); Mean Platelet Volume 11.7 fL (9.4-12.4); Nucleated Red Blood Cells 0.7 /100 WBC (0); Platelet Count 170 K/mcL (140-400); Red Blood Count 2.54 M/mcL (3.82-4.97); Red Cell Distribution Width 15.7 % (11.5-14.5)
[2020-07-12 03:05] LABS: White Blood Count 9.8 K/mcL (4.3-11.1)
[2020-07-12 03:22] LABS: Anisocytosis 1+ (Not Present); Large Platelets Present (Not Present); Monocytes # 0.2 K/mcL (0.0-1.3); Neutrophils # 8.6 K/mcL (1.6-8.9); Platelet Estimate Normal (Normal); Toxic Granulation Present (Not Present)
[2020-07-12 03:24] LABS: Potassium 4.1 mEq/L (3.5-5.1)
[2020-07-12] MEDS: Piperacillin/Tazobactam 3.375 GM in 0.9 % Sodium Chloride Mini Bag 100 ML IVPB SCH ×2 (04:54→18:38)
[2020-07-12] MEDS: Levothyroxine 25 MCG TABLET PO SCH (04:58)
[2020-07-12] MEDS: Cholecalciferol (D-3) 1,000 UNIT (25MCG) TABLET PO SCH (08:21)
[2020-07-12] MEDS: Thiamine (B-1) 100 MG TABLET PO SCH (08:21)
[2020-07-12] MEDS: Apixaban 5 MG TABLET PO SCH ×2 (08:21→21:21)
[2020-07-12] MEDS: Dexamethasone Sodium Phos/PF 10 MG/ML VIAL IVP SCH (08:23)
[2020-07-12] MEDS: Pantoprazole 40 MG VIAL IVP SCH (08:23)
[2020-07-12] MEDS: amLODIPine 5 MG TABLET PO SCH (08:23)
[2020-07-12] MEDS: Multivit/Ca/Min/Fe/FA 1 TAB TABLET PO SCH (08:23)
[2020-07-12 08:32] LABS: ANA IgG by ELISA NONE DETECTED (None Detected)
[2020-07-12 08:42] LABS: Serine Protease-3 Antibody 0 AU/mL (0-19)
[2020-07-12] MEDS ORDERED: D5% in Water 1,000 ML IVC SCH (10:15)
[2020-07-12] MEDS: levETIRAcetam 250 MG in 0.9 % Sodium Chloride 100 ML IVPB SCH ×2 (11:01→21:20)
[2020-07-12] MEDS: Vitamin B Complex/Vit C/Vit E 1 EACH TABLET PO SCH (21:21)
[2020-07-12] MEDS: Insulin DETEMIR 100 UNIT/ML X5UNITS SUBQ SCH (21:22)
[2020-07-12] MEDS ORDERED: *HR* Atropine Sulfate 1 MG/10 ML SYRINGE IVP ONE (22:25)
[2020-07-13] MEDS: Insulin LISPRO 300 UNITS/3 ML VIAL SUBQ SCH ×4 (00:47→18:14)
[2020-07-13 02:25] LABS: Basophils % 0.1 %; Hematocrit 24.2 % (35.3-44.9); Hemoglobin 7.5 g/dL (11.5-15.4); Lymphocytes # 0.5 K/mcL (0.6-4.6); Mean Corpuscular Hemoglobin 30.2 pg (28.0-33.3); Mean Corpuscular Volume 97.6 fL (83.0-100.0); Mean Platelet Volume 11.2 fL (9.4-12.4); Monocytes # 0.2 K/mcL (0.0-1.3); Monocytes % 2.2 %; Neutrophils # 6.3 K/mcL (1.6-8.9); Nucleated Red Blood Cells 0.4 /100 WBC (0); Platelet Count 142 K/mcL (140-400); Red Blood Count 2.48 M/mcL (3.82-4.97); Red Cell Distribution Width 15.3 % (11.5-14.5); Segmented Neutrophils % 87.7 %; White Blood Count 7.2 K/mcL (4.3-11.1)
[2020-07-13 02:42] LABS: Calcium 9.7 mg/dL (8.6-10.3); Potassium 3.9 mEq/L (3.5-5.1)
[2020-07-13] MEDS: Piperacillin/Tazobactam 3.375 GM in 0.9 % Sodium Chloride Mini Bag 100 ML IVPB SCH ×2 (06:01→18:14)
[2020-07-13] MEDS: Levothyroxine 25 MCG TABLET PO SCH (06:02)
[2020-07-13 06:46] LABS: GBM IgG Multiplex Bead Assay 0 AU/mL (0-19); Glomerular Basement Memb IgG NEGATIVE (Negative)
[2020-07-13] MEDS: Cholecalciferol (D-3) 1,000 UNIT (25MCG) TABLET PO SCH (09:21)
[2020-07-13] MEDS: Multivit/Ca/Min/Fe/FA 1 TAB TABLET PO SCH (09:22)
[2020-07-13] MEDS: Thiamine (B-1) 100 MG TABLET PO SCH (09:24)
[2020-07-13] MEDS: Apixaban 5 MG TABLET PO SCH ×2 (09:24→20:47)
[2020-07-13] MEDS: Dexamethasone Sodium Phos/PF 10 MG/ML VIAL IVP SCH (09:25)
[2020-07-13] MEDS: amLODIPine 5 MG TABLET PO SCH (09:34)
[2020-07-13] MEDS ORDERED: Furosemide 40 MG/4 ML VIAL IVP ONE (09:38)
[2020-07-13] MEDS: levETIRAcetam 250 MG in 0.9 % Sodium Chloride 100 ML IVPB SCH ×2 (09:48→20:47)
[2020-07-13] MEDS: Insulin DETEMIR 100 UNIT/ML X5UNITS SUBQ SCH (20:47)
[2020-07-13] MEDS: Vitamin B Complex/Vit C/Vit E 1 EACH TABLET PO SCH (20:47)
[2020-07-14] MEDS: Insulin LISPRO 300 UNITS/3 ML VIAL SUBQ SCH ×4 (00:14→19:43)
[2020-07-14 01:21] LABS: Basophils % 0.1 %; Hematocrit 27.4 % (35.3-44.9); Hemoglobin 8.8 g/dL (11.5-15.4); Immature Granulocytes % 3.8 % (0-4); Lymphocytes # 0.6 K/mcL (0.6-4.6); Lymphocytes % 6.2 %; Mean Corpuscular HGB Conc 32.1 g/dL (31.6-35.5); Mean Corpuscular Hemoglobin 31.1 pg (28.0-33.3); Mean Corpuscular Volume 96.8 fL (83.0-100.0); Mean Platelet Volume 11.9 fL (9.4-12.4); Monocytes # 0.3 K/mcL (0.0-1.3); Monocytes % 3.2 %; Nucleated Red Blood Cells 0.4 /100 WBC (0); Platelet Count 195 K/mcL (140-400); Red Blood Count 2.83 M/mcL (3.82-4.97); Red Cell Distribution Width 15.1 % (11.5-14.5); Segmented Neutrophils % 86.7 %; White Blood Count 10.4 K/mcL (4.3-11.1)
[2020-07-14 01:42] LABS: Calcium 9.8 mg/dL (8.6-10.3); Potassium 4.1 mEq/L (3.5-5.1)
[2020-07-14] MEDS: Levothyroxine 25 MCG TABLET PO SCH (05:28)
[2020-07-14] MEDS: Piperacillin/Tazobactam 3.375 GM in 0.9 % Sodium Chloride Mini Bag 100 ML IVPB SCH ×2 (05:28→21:15)
[2020-07-14] MEDS: Multivit/Ca/Min/Fe/FA 1 TAB TABLET PO SCH (11:44)
[2020-07-14] MEDS: hydrALAZINE 25 MG TABLET PO SCH (11:45)
[2020-07-14] MEDS: Apixaban 5 MG TABLET PO SCH ×2 (11:45→21:15)
[2020-07-14] MEDS: Dexamethasone Sodium Phos/PF 10 MG/ML VIAL IVP SCH (11:45)
[2020-07-14] MEDS: Cholecalciferol (D-3) 1,000 UNIT (25MCG) TABLET PO SCH (11:45)
[2020-07-14] MEDS: Thiamine (B-1) 100 MG TABLET PO SCH (11:45)
[2020-07-14] MEDS: amLODIPine 5 MG TABLET PO SCH (11:45)
[2020-07-14] MEDS: levETIRAcetam 250 MG in 0.9 % Sodium Chloride 100 ML IVPB SCH ×2 (11:46→22:30)
[2020-07-14] MEDS ORDERED: Furosemide 40 MG/4 ML VIAL IVP ONE (12:16)
[2020-07-14] MEDS: Insulin DETEMIR 100 UNIT/ML X5UNITS SUBQ SCH (22:30)
[2020-07-15] MEDS: Vitamin B Complex/Vit C/Vit E 1 EACH TABLET PO SCH ×2 (00:06→20:05)
[2020-07-15] MEDS: hydrALAZINE 25 MG TABLET PO SCH ×4 (00:08→16:06)
[2020-07-15 01:38] LABS: Basophils % 0.1 %; Hematocrit 26.4 % (35.3-44.9); Hemoglobin 8.7 g/dL (11.5-15.4); Immature Granulocytes % 2.9 % (0-4); Lymphocytes # 0.7 K/mcL (0.6-4.6); Lymphocytes % 7.4 %; Mean Corpuscular Hemoglobin 31.4 pg (28.0-33.3); Mean Corpuscular Volume 95.3 fL (83.0-100.0); Mean Platelet Volume 11.8 fL (9.4-12.4); Monocytes # 0.2 K/mcL (0.0-1.3); Monocytes % 2.1 %; Neutrophils # 7.8 K/mcL (1.6-8.9); Platelet Count 176 K/mcL (140-400); Red Blood Count 2.77 M/mcL (3.82-4.97); Segmented Neutrophils % 87.5 %; White Blood Count 8.9 K/mcL (4.3-11.1)
[2020-07-15 01:56] LABS: Calcium 8.7 mg/dL (8.6-10.3); Potassium 4.3 mEq/L (3.5-5.1)
[2020-07-15] MEDS: Cholecalciferol (D-3) 1,000 UNIT (25MCG) TABLET PO SCH (08:35)
[2020-07-15] MEDS: Apixaban 5 MG TABLET PO SCH ×2 (08:36→20:05)
[2020-07-15] MEDS: Levothyroxine 25 MCG TABLET PO SCH (08:36)
[2020-07-15] MEDS: Thiamine (B-1) 100 MG TABLET PO SCH (08:36)
[2020-07-15] MEDS: amLODIPine 5 MG TABLET PO SCH (08:37)
[2020-07-15] MEDS: Multivit/Ca/Min/Fe/FA 1 TAB TABLET PO SCH (08:37)
[2020-07-15] MEDS: Piperacillin/Tazobactam 3.375 GM in 0.9 % Sodium Chloride Mini Bag 100 ML IVPB SCH (08:38)
[2020-07-15] MEDS: Insulin LISPRO 300 UNITS/3 ML VIAL SUBQ SCH ×3 (09:45→17:24)
[2020-07-15] MEDS: levETIRAcetam 250 MG in 0.9 % Sodium Chloride 100 ML IVPB SCH (10:04)
[2020-07-15] MEDS: Dexamethasone Sodium Phos/PF 10 MG/ML VIAL IVP SCH (13:01)
[2020-07-15] MEDS: Furosemide 20 MG TABLET PO SCH (16:06)
[2020-07-15] MEDS: Insulin DETEMIR 100 UNIT/ML X5UNITS SUBQ SCH (20:14)
[2020-07-16] MEDS: levETIRAcetam 250 MG in 0.9 % Sodium Chloride 100 ML IVPB SCH ×3 (02:39→21:22)
[2020-07-16] MEDS: Levothyroxine 25 MCG TABLET PO SCH (02:40)
[2020-07-16] MEDS: hydrALAZINE 25 MG TABLET PO SCH ×3 (02:40→16:51)
[2020-07-16] MEDS: Dexamethasone Sodium Phos/PF 10 MG/ML VIAL IVP SCH (09:11)
[2020-07-16] MEDS: Cholecalciferol (D-3) 1,000 UNIT (25MCG) TABLET PO SCH (09:12)
[2020-07-16] MEDS: Thiamine (B-1) 100 MG TABLET PO SCH (09:13)
[2020-07-16] MEDS: Multivit/Ca/Min/Fe/FA 1 TAB TABLET PO SCH (09:13)
[2020-07-16] MEDS: Apixaban 5 MG TABLET PO SCH ×2 (09:13→21:21)
[2020-07-16] MEDS: NIFEdipine XL (24 HR) 30 MG TAB.ER.24 PO SCH (09:13)
[2020-07-16] MEDS: Furosemide 20 MG TABLET PO SCH (09:13)
[2020-07-16] MEDS: Insulin LISPRO 300 UNITS/3 ML VIAL SUBQ SCH ×3 (09:17→16:52)
[2020-07-16 10:28] LABS: Basophils % 0.2 %; Eosinophils # 0.2 K/mcL (0.0-0.6); Eosinophils % 1.6 %; Hemoglobin 8.7 g/dL (11.5-15.4); Immature Granulocytes % 1.4 % (0-4); Lymphocytes # 1.9 K/mcL (0.6-4.6); Lymphocytes % 15.1 %; Mean Corpuscular HGB Conc 32.2 g/dL (31.6-35.5); Mean Corpuscular Hemoglobin 31.5 pg (28.0-33.3); Mean Corpuscular Volume 97.8 fL (83.0-100.0); Mean Platelet Volume 11.8 fL (9.4-12.4); Monocytes # 0.5 K/mcL (0.0-1.3); Monocytes % 3.7 %; Neutrophils # 9.7 K/mcL (1.6-8.9); Platelet Count 161 K/mcL (140-400); Red Blood Count 2.76 M/mcL (3.82-4.97); Red Cell Distribution Width 15.2 % (11.5-14.5); White Blood Count 12.5 K/mcL (4.3-11.1)
[2020-07-16 10:40] LABS: Calcium 8.9 mg/dL (8.6-10.3); Magnesium 1.9 mg/dL (1.6-2.6); Phosphorous 3.3 mg/dL (2.7-4.5); Potassium 4.1 mEq/L (3.5-5.1)
[2020-07-16] MEDS: Vitamin B Complex/Vit C/Vit E 1 EACH TABLET PO SCH (21:04)
[2020-07-16] MEDS: Insulin DETEMIR 100 UNIT/ML X5UNITS SUBQ SCH (21:33)
[2020-07-17] MEDS: hydrALAZINE 25 MG TABLET PO SCH ×3 (00:12→17:17)
[2020-07-17 03:39] LABS: Basophils % 0.1 %; Eosinophils # 0.1 K/mcL (0.0-0.6); Eosinophils % 0.8 %; Hematocrit 24.8 % (35.3-44.9); Hemoglobin 7.8 g/dL (11.5-15.4); Immature Granulocytes % 1.3 % (0-4); Lymphocytes # 1.5 K/mcL (0.6-4.6); Lymphocytes % 13.8 %; Mean Corpuscular HGB Conc 31.5 g/dL (31.6-35.5); Mean Corpuscular Hemoglobin 31.2 pg (28.0-33.3); Mean Corpuscular Volume 99.2 fL (83.0-100.0); Monocytes # 0.4 K/mcL (0.0-1.3); Monocytes % 3.8 %; Neutrophils # 8.8 K/mcL (1.6-8.9); Platelet Count 153 K/mcL (140-400); Segmented Neutrophils % 80.2 %; White Blood Count 10.9 K/mcL (4.3-11.1)
[2020-07-17 04:03] LABS: Albumin 2.9 g/dL (3.5-5.7); Albumin/Globulin Ratio 1.5 (1.1-2.2); Bilirubin,Total 0.3 mg/dL (0.3-1.0); Calcium 8.6 mg/dL (8.6-10.3); Magnesium 1.9 mg/dL (1.6-2.6); Phosphorous 3.3 mg/dL (2.7-4.5); Potassium 4.4 mEq/L (3.5-5.1); Total Protein 4.9 g/dL (6.4-8.9)
[2020-07-17 04:24] LABS: Folate > 22.3 ng/mL (3.0-16.0); Vitamin B12 1154 pg/mL (250-1100)
[2020-07-17] MEDS: Levothyroxine 25 MCG TABLET PO SCH (05:25)
[2020-07-17] MEDS: Insulin LISPRO 300 UNITS/3 ML VIAL SUBQ SCH ×3 (08:00→17:00)
[2020-07-17] MEDS: Multivit/Ca/Min/Fe/FA 1 TAB TABLET PO SCH (11:32)
[2020-07-17] MEDS: Cholecalciferol (D-3) 1,000 UNIT (25MCG) TABLET PO SCH (11:32)
[2020-07-17] MEDS: Dexamethasone Sodium Phos/PF 10 MG/ML VIAL IVP SCH (11:32)
[2020-07-17] MEDS: Thiamine (B-1) 100 MG TABLET PO SCH (11:32)
[2020-07-17] MEDS: NIFEdipine XL (24 HR) 30 MG TAB.ER.24 PO SCH (11:32)
[2020-07-17] MEDS: Apixaban 5 MG TABLET PO SCH ×2 (11:32→21:17)
[2020-07-17] MEDS: Furosemide 20 MG TABLET PO SCH (11:32)
[2020-07-17] MEDS: levETIRAcetam 250 MG in 0.9 % Sodium Chloride 100 ML IVPB SCH (15:19)
[2020-07-17] MEDS ORDERED: Iron Sucrose Complex 400 MG in 0.9 % Sodium Chloride 250 ML IVPB ONE (15:30)
[2020-07-17] MEDS: Vitamin B Complex/Vit C/Vit E 1 EACH TABLET PO SCH (21:17)
[2020-07-17] MEDS: levETIRAcetam 250 MG TABLET PO SCH (21:17)
[2020-07-17] MEDS: Insulin DETEMIR 100 UNIT/ML X5UNITS SUBQ SCH (21:17)
[2020-07-18] MEDS: hydrALAZINE 25 MG TABLET PO SCH ×3 (00:30→16:13)
[2020-07-18 02:38] LABS: Basophils % 0.1 %; Eosinophils % 0.1 %; Hematocrit 23.8 % (35.3-44.9); Hemoglobin 7.5 g/dL (11.5-15.4); Immature Granulocytes % 1.4 % (0-4); Mean Corpuscular HGB Conc 31.5 g/dL (31.6-35.5); Mean Corpuscular Hemoglobin 31.3 pg (28.0-33.3); Mean Corpuscular Volume 99.2 fL (83.0-100.0); Mean Platelet Volume 12.1 fL (9.4-12.4); Monocytes # 0.4 K/mcL (0.0-1.3); Monocytes % 4.3 %; Neutrophils # 7.6 K/mcL (1.6-8.9); Platelet Count 152 K/mcL (140-400); Red Cell Distribution Width 15.1 % (11.5-14.5); Segmented Neutrophils % 83.1 %; White Blood Count 9.1 K/mcL (4.3-11.1)
[2020-07-18 02:59] LABS: Alanine Aminotransferase 42 Units/L (7-52); Albumin 2.9 g/dL (3.5-5.7); Albumin/Globulin Ratio 1.5 (1.1-2.2); Alkaline Phosphatase 83 Units/L (34-104); Aspartate Amino Transferase 32 Units/L (13-39); BUN/Creatinine Ratio 33 (6-26); Bilirubin,Total 0.3 mg/dL (0.3-1.0); Blood Urea Nitrogen 73 mg/dL (8-23); C-Reactive Protein < 5 mg/L (Less than 10); Calcium 8.6 mg/dL (8.6-10.3); Carbon Dioxide 23 mEq/L (23-29); Chloride 110 mEq/L (98-107); Glucose 255 mg/dL (70-105); Lactate Dehydrogenase 145 Units/L (140-271); Magnesium 1.9 mg/dL (1.6-2.6); Osmolality,Calculated 324 (280-300); Phosphorous 3.7 mg/dL (2.7-4.5); Potassium 4.3 mEq/L (3.5-5.1); Sodium 142 mEq/L (136-145); Total Protein 4.9 g/dL (6.4-8.9); eGFR For African Americans 25 (> 60); eGFR For Non-African Americans 21 (> 60)
[2020-07-18 03:17] LABS: Ferritin 351 ng/mL (10-120)
[2020-07-18] MEDS: Levothyroxine 25 MCG TABLET PO SCH (05:31)
[2020-07-18] MEDS: Cholecalciferol (D-3) 1,000 UNIT (25MCG) TABLET PO SCH (08:12)
[2020-07-18] MEDS: Apixaban 5 MG TABLET PO SCH ×2 (08:13→20:43)
[2020-07-18] MEDS: Furosemide 20 MG TABLET PO SCH (08:13)
[2020-07-18] MEDS: Multivit/Ca/Min/Fe/FA 1 TAB TABLET PO SCH (08:13)
[2020-07-18] MEDS: levETIRAcetam 250 MG TABLET PO SCH ×2 (08:13→20:36)
[2020-07-18] MEDS: NIFEdipine XL (24 HR) 60 MG TAB.ER.24 PO SCH (08:13)
[2020-07-18] MEDS: Thiamine (B-1) 100 MG TABLET PO SCH (08:14)
[2020-07-18] MEDS: Insulin LISPRO 300 UNITS/3 ML VIAL SUBQ SCH ×3 (08:14→16:13)
[2020-07-18] MEDS: Dexamethasone Sodium Phos/PF 10 MG/ML VIAL IVP SCH (08:14)
[2020-07-18] MEDS ORDERED: Saline Nasal Spray 44 ML BOTTLE NS PRN (16:13)
[2020-07-18] MEDS: Chlorhexidine Rinse 15 ML MOUTHWASH MM SCH (20:36)
[2020-07-18] MEDS: Vitamin B Complex/Vit C/Vit E 1 EACH TABLET PO SCH (20:36)
[2020-07-18] MEDS: Artificial Tears SOLN 15 ML BOTTLE BOTH EYES SCH (20:37)
[2020-07-18] MEDS: Insulin DETEMIR 100 UNIT/ML X5UNITS SUBQ SCH (20:37)
[2020-07-18] MEDS: Acetaminophen 325 MG TABLET PO PRN (20:56)
[2020-07-19] MEDS: hydrALAZINE 25 MG TABLET PO SCH ×4 (00:27→23:48)
[2020-07-19] MEDS ORDERED: Sennosides/Docusate Sodium TABLET PO PRN (00:36)
[2020-07-19 04:38] LABS: Eosinophils # 0.1 K/mcL (0.0-0.6); Eosinophils % 0.8 %; Hematocrit 22.2 % (35.3-44.9); Hemoglobin 6.9 g/dL (11.5-15.4); Lymphocytes # 1.8 K/mcL (0.6-4.6); Lymphocytes % 13.8 %; Mean Corpuscular HGB Conc 31.1 g/dL (31.6-35.5); Mean Corpuscular Hemoglobin 30.7 pg (28.0-33.3); Mean Corpuscular Volume 98.7 fL (83.0-100.0); Mean Platelet Volume 12.4 fL (9.4-12.4); Monocytes # 0.7 K/mcL (0.0-1.3); Monocytes % 5.3 %; Neutrophils # 10.5 K/mcL (1.6-8.9); Platelet Count 152 K/mcL (140-400); Red Blood Count 2.25 M/mcL (3.82-4.97); Red Cell Distribution Width 15.6 % (11.5-14.5); Segmented Neutrophils % 79.1 %; White Blood Count 13.2 K/mcL (4.3-11.1)
[2020-07-19 04:39] LABS: Estimated Average Glucose 166 mg/dl; Hemoglobin A1C 7.4 %
[2020-07-19 04:59] LABS: Alanine Aminotransferase 39 Units/L (7-52); Albumin 2.7 g/dL (3.5-5.7); Albumin/Globulin Ratio 1.4 (1.1-2.2); Alkaline Phosphatase 87 Units/L (34-104); Aspartate Amino Transferase 31 Units/L (13-39); BUN/Creatinine Ratio 31 (6-26); Bilirubin,Total 0.2 mg/dL (0.3-1.0); Blood Urea Nitrogen 69 mg/dL (8-23); C-Reactive Protein < 5 mg/L (Less than 10); Calcium 8.4 mg/dL (8.6-10.3); Carbon Dioxide 24 mEq/L (23-29); Chloride 112 mEq/L (98-107); Glucose 173 mg/dL (70-105); Lactate Dehydrogenase 131 Units/L (140-271); Magnesium 1.8 mg/dL (1.6-2.6); Osmolality,Calculated 320 (280-300); Phosphorous 2.9 mg/dL (2.7-4.5); Potassium 3.9 mEq/L (3.5-5.1); Sodium 143 mEq/L (136-145); Total Protein 4.7 g/dL (6.4-8.9); eGFR For African Americans 25 (> 60); eGFR For Non-African Americans 21 (> 60)
[2020-07-19 05:16] LABS: Ferritin 342 ng/mL (10-120)
[2020-07-19] MEDS: Levothyroxine 25 MCG TABLET PO SCH (05:59)
[2020-07-19] MEDS ORDERED: Albumin 25% 25gram/100mL 25 GM/100 ML IV.SOLN IVPB SCH (08:30)
[2020-07-19] MEDS: Insulin LISPRO 300 UNITS/3 ML VIAL SUBQ SCH ×3 (09:30→16:48)
[2020-07-19 09:48] LABS: Hematocrit 22.1 % (35.3-44.9); Hemoglobin 6.8 g/dL (11.5-15.4)
[2020-07-19] MEDS: Calcium Gluconate 1gm/50mL 1 GM/50 ML BAG IVPB SCH ×2 (10:01→10:31)
[2020-07-19] MEDS: Dexamethasone Sodium Phos/PF 10 MG/ML VIAL IVP SCH (10:02)
[2020-07-19] MEDS: Thiamine (B-1) 100 MG TABLET PO SCH (10:03)
[2020-07-19] MEDS: Cholecalciferol (D-3) 1,000 UNIT (25MCG) TABLET PO SCH (10:03)
[2020-07-19] MEDS: Multivit/Ca/Min/Fe/FA 1 TAB TABLET PO SCH (10:03)
[2020-07-19] MEDS: Chlorhexidine Rinse 15 ML MOUTHWASH MM SCH ×2 (10:03→20:50)
[2020-07-19] MEDS: levETIRAcetam 250 MG TABLET PO SCH ×2 (10:03→20:50)
[2020-07-19] MEDS: Artificial Tears SOLN 15 ML BOTTLE BOTH EYES SCH ×2 (10:03→20:50)
[2020-07-19] MEDS: Furosemide 20 MG TABLET PO SCH (10:03)
[2020-07-19] MEDS: NIFEdipine XL (24 HR) 60 MG TAB.ER.24 PO SCH (10:03)
[2020-07-19] MEDS: Apixaban 5 MG TABLET PO SCH ×2 (10:03→20:51)
[2020-07-19] MEDS ORDERED: 0.9 % Sodium Chloride 250 ML IVC ONE (12:48)
[2020-07-19 17:22] LABS: Hematocrit 25.7 % (35.3-44.9); Hemoglobin 8.1 g/dL (11.5-15.4)
[2020-07-19] MEDS: Vitamin B Complex/Vit C/Vit E 1 EACH TABLET PO SCH (20:51)
[2020-07-19] MEDS: Insulin DETEMIR 100 UNIT/ML X5UNITS SUBQ SCH (21:00)
[2020-07-20 04:48] LABS: Hematocrit 24.5 % (35.3-44.9); Hemoglobin 7.7 g/dL (11.5-15.4); Mean Corpuscular HGB Conc 31.4 g/dL (31.6-35.5); Mean Corpuscular Volume 98.8 fL (83.0-100.0); Mean Platelet Volume 12.5 fL (9.4-12.4); Platelet Count 151 K/mcL (140-400); Red Blood Count 2.48 M/mcL (3.82-4.97); Red Cell Distribution Width 16.5 % (11.5-14.5); White Blood Count 9.4 K/mcL (4.3-11.1)
[2020-07-20 05:07] LABS: Calcium 8.9 mg/dL (8.6-10.3); Magnesium 2.1 mg/dL (1.6-2.6); Potassium 4.2 mEq/L (3.5-5.1)
[2020-07-20] MEDS: Levothyroxine 25 MCG TABLET PO SCH (06:38)
[2020-07-20] MEDS: Insulin LISPRO 300 UNITS/3 ML VIAL SUBQ SCH ×3 (09:34→16:39)
[2020-07-20] MEDS: Apixaban 5 MG TABLET PO SCH ×2 (09:35→22:46)
[2020-07-20] MEDS: Thiamine (B-1) 100 MG TABLET PO SCH (09:35)
[2020-07-20] MEDS: hydrALAZINE 25 MG TABLET PO SCH ×2 (09:36→16:25)
[2020-07-20] MEDS: Multivit/Ca/Min/Fe/FA 1 TAB TABLET PO SCH (09:37)
[2020-07-20] MEDS: hydroCHLOROthiazide 25 MG TABLET PO SCH (09:37)
[2020-07-20] MEDS: levETIRAcetam 250 MG TABLET PO SCH ×2 (09:37→22:46)
[2020-07-20] MEDS: Cholecalciferol (D-3) 1,000 UNIT (25MCG) TABLET PO SCH (09:37)
[2020-07-20] MEDS: Chlorhexidine Rinse 15 ML MOUTHWASH MM SCH ×2 (09:40→22:46)
[2020-07-20] MEDS: Dexamethasone Sodium Phos/PF 10 MG/ML VIAL IVP SCH (09:40)
[2020-07-20] MEDS: Acetaminophen 325 MG TABLET PO PRN (16:36)
[2020-07-20] MEDS: CLEAR EYES NATURAL TEARS 15 ML BOTTLE BOTH EYES SCH ×2 (17:55→22:46)
[2020-07-20] MEDS: Insulin DETEMIR 100 UNIT/ML X5UNITS SUBQ SCH (22:46)
[2020-07-20] MEDS: Vitamin B Complex/Vit C/Vit E 1 EACH TABLET PO SCH (22:47)
[2020-07-20] MEDS: Melatonin 3 MG TABLET PO PRN (22:47)
[2020-07-21] MEDS: hydrALAZINE 25 MG TABLET PO SCH ×3 (01:12→16:41)
[2020-07-21] MEDS: Acetaminophen 325 MG TABLET PO PRN ×2 (02:55→20:59)
[2020-07-21] MEDS: Levothyroxine 25 MCG TABLET PO SCH ×2 (05:23→09:08)
[2020-07-21 05:53] LABS: Mean Corpuscular Hemoglobin 31.7 pg (28.0-33.3); Mean Corpuscular Volume 99.2 fL (83.0-100.0); Mean Platelet Volume 12.6 fL (9.4-12.4); Platelet Count 166 K/mcL (140-400); Red Blood Count 2.52 M/mcL (3.82-4.97); Red Cell Distribution Width 16.1 % (11.5-14.5); White Blood Count 7.4 K/mcL (4.3-11.1)
[2020-07-21 06:10] LABS: Calcium 8.8 mg/dL (8.6-10.3); Magnesium 1.9 mg/dL (1.6-2.6); Phosphorous 2.9 mg/dL (2.7-4.5); Potassium 3.9 mEq/L (3.5-5.1)
[2020-07-21] MEDS: Insulin LISPRO 300 UNITS/3 ML VIAL SUBQ SCH ×3 (08:44→16:41)
[2020-07-21] MEDS: Dexamethasone Sodium Phos/PF 10 MG/ML VIAL IVP SCH (09:04)
[2020-07-21] MEDS: hydroCHLOROthiazide 25 MG TABLET PO SCH (09:08)
[2020-07-21] MEDS: Multivit/Ca/Min/Fe/FA 1 TAB TABLET PO SCH (09:08)
[2020-07-21] MEDS: Cholecalciferol (D-3) 1,000 UNIT (25MCG) TABLET PO SCH (09:08)
[2020-07-21] MEDS: Thiamine (B-1) 100 MG TABLET PO SCH (09:08)
[2020-07-21] MEDS: levETIRAcetam 250 MG TABLET PO SCH ×2 (09:09→20:23)
[2020-07-21] MEDS: Apixaban 5 MG TABLET PO SCH ×2 (09:09→20:23)
[2020-07-21] MEDS: Chlorhexidine Rinse 15 ML MOUTHWASH MM SCH ×2 (09:10→20:23)
[2020-07-21] MEDS: CLEAR EYES NATURAL TEARS 15 ML BOTTLE BOTH EYES SCH ×2 (09:10→20:24)
[2020-07-21] MEDS: NIFEdipine XL (24 HR) 30 MG TAB.ER.24 PO SCH (16:41)
[2020-07-21] MEDS: Insulin DETEMIR 100 UNIT/ML X5UNITS SUBQ SCH (20:23)
[2020-07-21] MEDS: Vitamin B Complex/Vit C/Vit E 1 EACH TABLET PO SCH (20:23)
[2020-07-21] MEDS: Melatonin 3 MG TABLET PO PRN (20:59)
[2020-07-22] MEDS: hydrALAZINE 25 MG TABLET PO SCH ×2 (00:35→12:42)
[2020-07-22 01:07] LABS: Hematocrit 25.4 % (35.3-44.9); Hemoglobin 8.1 g/dL (11.5-15.4); Mean Corpuscular HGB Conc 31.9 g/dL (31.6-35.5); Mean Corpuscular Hemoglobin 31.8 pg (28.0-33.3); Mean Corpuscular Volume 99.6 fL (83.0-100.0); Mean Platelet Volume 11.9 fL (9.4-12.4); Platelet Count 170 K/mcL (140-400); Red Blood Count 2.55 M/mcL (3.82-4.97); Red Cell Distribution Width 16.3 % (11.5-14.5); White Blood Count 6.1 K/mcL (4.3-11.1)
[2020-07-22 01:20] LABS: Calcium 8.9 mg/dL (8.6-10.3); Phosphorous 2.8 mg/dL (2.7-4.5); Potassium 4.2 mEq/L (3.5-5.1)
[2020-07-22] MEDS: Levothyroxine 25 MCG TABLET PO SCH (05:17)
[2020-07-22] MEDS ORDERED: hydrALAZINE 25 MG TABLET PO SCH (08:06)
[2020-07-22] MEDS: Cholecalciferol (D-3) 1,000 UNIT (25MCG) TABLET PO SCH (08:09)
[2020-07-22] MEDS: Multivit/Ca/Min/Fe/FA 1 TAB TABLET PO SCH (08:11)
[2020-07-22] MEDS: Thiamine (B-1) 100 MG TABLET PO SCH (08:11)
[2020-07-22] MEDS: levETIRAcetam 250 MG TABLET PO SCH (08:12)
[2020-07-22] MEDS: Apixaban 5 MG TABLET PO SCH (08:12)
[2020-07-22] MEDS: Chlorhexidine Rinse 15 ML MOUTHWASH MM SCH (08:15)
[2020-07-22] MEDS: CLEAR EYES NATURAL TEARS 15 ML BOTTLE BOTH EYES SCH (08:15)
[2020-07-22] MEDS: Insulin LISPRO 300 UNITS/3 ML VIAL SUBQ SCH ×3 (08:17→17:36)
[2020-07-22] MEDS: NIFEdipine XL (24 HR) 30 MG TAB.ER.24 PO SCH (09:49)
[2020-07-22] MEDS: hydrALAZINE 10 MG TABLET PO SCH ×2 (09:49→17:36)
[2020-07-22 15:35] VITALS: BP 151/76
== END 2020-07-22 18:03 | disposition other institution (70) | DRG 871 ==
LOC: EMEROOARM 18:02 → 3BNU 18:02 → SUATTDRO 20:25 → 2ANU 21:44 → SUATTDRO 07-05 19:55 → 2ANU 07-08 01:09 → 2NENU 07-09 22:42
PROVIDERS: ADMIT Internal Medicine; ATTEND Internal Medicine

== ENCOUNTER 2021-03-01 16:51 | Inpatient (IN) ==
[2021-03-01] MEDS ORDERED: Isovue-370 500 ML BOTTLE IVP ONE (16:57)
[2021-03-01 17:24] LABS: Red Cell Distribution Width 16.2 % (11.5-14.5)
[2021-03-01 17:26] LABS: Hematocrit 25.8 % (35.3-44.9); Immature Platelets 8.1 % (1.1-6.1); Mean Corpuscular Hemoglobin 31.1 pg (28.0-33.3); Mean Corpuscular Volume 100.4 fL (83.0-100.0); Mean Platelet Volume 11.8 fL (9.4-12.4); Red Blood Count 2.57 M/mcL (3.82-4.97); White Blood Count 6.2 K/mcL (4.3-11.1)
[2021-03-01 17:34] LABS: INR 1.1; Prothrombin Time 11.8 Seconds (9.4-12.1)
[2021-03-01 17:36] LABS: Activated Partial Thrombo Time 48.7 Seconds (26.0-36.0)
[2021-03-01] MEDS ORDERED: 0.9 % Sodium Chloride 1,000 ML ONE ×2 (17:43→19:31)
[2021-03-01 17:48] LABS: BUN/Creatinine Ratio 23 (6-26); Blood Urea Nitrogen 75 mg/dL (8-23); Calcium 7.9 mg/dL (8.6-10.3); Carbon Dioxide 10 mEq/L (23-29); Chloride 123 mEq/L (98-107); Glucose 137 mg/dL (70-105); Osmolality,Calculated 316 (280-300); Potassium 5.1 mEq/L (3.5-5.1); Sodium 141 mEq/L (136-145); Troponin I < 0.03 ng/mL (< 0.04); eGFR For African Americans 16 (> 60); eGFR For Non-African Americans 14 (> 60)
[2021-03-01] MEDS ORDERED: Ampicillin 1,000 MG in 0.9 % Sodium Chloride Mini Bag 100 ML IVPB ONE (17:52)
[2021-03-01] MEDS ORDERED: cefTRIAXone 2,000 MG in Water for inj. (sterile) 10 ML IVP ONE (17:52)
[2021-03-01] MEDS ORDERED: 0.9 % Sodium Chloride 2,000 ML IV ONE (18:05)
[2021-03-01] MEDS ORDERED: Norepinephrine 4 MG/254 ML IV.SOLN IVC SCH (18:15)
[2021-03-01 18:44] LABS: Bilirubin,Urine Negative (Negative); Blood,Urine Trace-lysed (Negative); Clarity,Urine Clear (Clear); Color,Urine Yellow (Yellow); Glucose,Urine (UA) Normal (Normal); Ketones,Urine Negative (Negative); Leukocyte Esterase,Urine Negative (Negative); Nitrite,Urine Negative (Negative); Protein,Urine >=300 mg/dL (Neg-Trace); Specific Gravity,Urine 1.025 (1.010-1.025); Urobilinogen,Urine Normal (Normal)
[2021-03-01 18:45] LABS: Thyroid Stimulating Hormone 5.084 mcIU/mL (0.340-5.600)
[2021-03-01 18:47] LABS: Hyaline Casts,Urine Few per lpf (None Seen); Mucus,Urine Few per lpf (None-Few); RBC,Urine 0-3 per hpf (0-3); Squamous Epithelial Cell,Urine Few per hpf (None-Few); WBC,Urine 0-3 per hpf (0-3)
[2021-03-01] MEDS: 0.9 % Sodium Chloride 1,000 ML IVC ONE ×2 (19:32→19:53)
[2021-03-01 20:15] LABS: Creatine Kinase 41 Units/L (30-223)
[2021-03-01] MEDS ORDERED: Naloxone 0.4 MG/ML INJ IVP PRN (22:59)
[2021-03-02] MEDS ORDERED: D5% in Water 1,000 ML IVC PRN (03:49)
[2021-03-02] MEDS ORDERED: Dextrose Gel 15 GM/37.5 ML TUBE PO PRN ×2 (03:49)
[2021-03-02] MEDS: *HR* Dextrose 50 % in Water (Syg) 50 ML SYRINGE IVP PRN ×2 (05:36→15:07)
[2021-03-02] MEDS: Ampicillin 1,000 MG in 0.9 % Sodium Chloride Mini Bag 100 ML IVPB SCH ×2 (05:37→12:09)
[2021-03-02 06:55] LABS: Basophils # 0.1 K/mcL (0.0-0.2); Basophils % 0.6 %; Eosinophils % 0.3 %; Hematocrit 26.4 % (35.3-44.9); Hemoglobin 8.5 g/dL (11.5-15.4); Immature Granulocytes % 2.2 % (0-4); Lymphocytes # 0.6 K/mcL (0.6-4.6); Lymphocytes % 7.1 %; Mean Corpuscular HGB Conc 32.2 g/dL (31.6-35.5); Mean Corpuscular Hemoglobin 32.2 pg (28.0-33.3); Mean Platelet Volume 12.4 fL (9.4-12.4); Monocytes # 0.5 K/mcL (0.0-1.3); Monocytes % 5.2 %; Neutrophils # 7.6 K/mcL (1.6-8.9); Nucleated Red Blood Cells 1.2 /100 WBC (0); Red Blood Count 2.64 M/mcL (3.82-4.97); Red Cell Distribution Width 16.3 % (11.5-14.5); Segmented Neutrophils % 84.6 %
[2021-03-02 06:57] LABS: Platelet Count 91 K/mcL (140-400)
[2021-03-02] MEDS ORDERED: Sodium Bicarbonate 150 MEQ in D5% in Water 1,000 ML IVC SCH (07:15)
[2021-03-02 08:07] LABS: Albumin 2.6 g/dL (3.5-5.7); Albumin/Globulin Ratio 1.2 (1.1-2.2); Bilirubin,Indirect 0.1 mg/dL (0.0-1.0); Bilirubin,Total 0.1 mg/dL (0.3-1.0); Globulin 2.2 g/dL (2.4-3.5); Total Protein 4.8 g/dL (6.4-8.9)
[2021-03-02 08:26] LABS: ABG Base Excess -18 mEq/L (-2 to 3); ABG HCO3 9 mEq/L (21-27); ABG Oxygen Saturation 93 % (95-98); ABG PCO2 25 mmHg (35-45); ABG PH 7.16 pH Units (7.32-7.45); ABG PO2 82 mmHg (85-104); ABG TCO2 10 mEq/L (20-26)
[2021-03-02] MEDS ORDERED: cefTRIAXone 1,000 MG in Water for inj. (sterile) 10 ML IVP SCH (09:00)
[2021-03-02] MEDS ORDERED: Apixaban 5 MG TABLET PO SCH (09:00)
[2021-03-02 11:55] LABS: Adenovirus Not Detected (Not Detect); Bordetella Pertussis Not Detected (Not Detect); Chlamydophila pneumoniae Not Detected (Not Detect); Coronavirus 229E Not Detected (Not Detect); Coronavirus HKU1 Not Detected (Not Detect); Coronavirus NL63 Not Detected (Not Detect); Coronavirus OC43 Not Detected (Not Detect); Human Metapneumovirus Not Detected (Not Detect); Human Rhinovirus/Enterovirus Not Detected (Not Detect); Influenza A Subtype 2009 H1 Not Detected (Not Detect); Influenza B Not Detected (Not Detect); Mycoplasma pneumoniae Not Detected (Not Detect); Parainfluenza Virus 1 Not Detected (Not Detect); Parainfluenza Virus 2 Not Detected (Not Detect); Parainfluenza Virus 3 Not Detected (Not Detect); Parainfluenza Virus 4 Not Detected (Not Detect); Respiratory Syncytial Virus Not Detected (Not Detect); SARS-CoV-2 Not Detected (Not Detect)
[2021-03-02] MEDS: Acyclovir 500 MG in D5% in Water 100 ML IVPB SCH (15:07)
[2021-03-02] MEDS: Hydrocortisone Sodium Succ 100 MG/2 ML VIAL IVP SCH (16:08)
[2021-03-02 17:43] LABS: Complement C3 96 mg/dL (87-200)
[2021-03-02] MEDS: cefTRIAXone 2,000 MG in 0.9 % Sodium Chloride Mini Bag 100 ML IVPB SCH (17:48)
[2021-03-03] MEDS: Hydrocortisone Sodium Succ 100 MG/2 ML VIAL IVP SCH ×2 (00:32→07:34)
[2021-03-03] MEDS: Ampicillin 1,000 MG in 0.9 % Sodium Chloride Mini Bag 100 ML IVPB SCH ×2 (00:32→12:06)
[2021-03-03 05:47] LABS: Basophils % 0.4 %; Hematocrit 30.1 % (35.3-44.9); Hemoglobin 9.7 g/dL (11.5-15.4); Immature Granulocytes % 1.9 % (0-4); Lymphocytes # 0.5 K/mcL (0.6-4.6); Lymphocytes % 7.3 %; Mean Corpuscular HGB Conc 32.2 g/dL (31.6-35.5); Mean Corpuscular Hemoglobin 31.7 pg (28.0-33.3); Mean Corpuscular Volume 98.4 fL (83.0-100.0); Mean Platelet Volume 12.1 fL (9.4-12.4); Monocytes # 0.1 K/mcL (0.0-1.3); Monocytes % 1.1 %; Neutrophils # 6.5 K/mcL (1.6-8.9); Nucleated Red Blood Cells 0.3 /100 WBC (0); Platelet Count 103 K/mcL (140-400); Red Blood Count 3.06 M/mcL (3.82-4.97); Red Cell Distribution Width 16.9 % (11.5-14.5); Segmented Neutrophils % 89.3 %; White Blood Count 7.3 K/mcL (4.3-11.1)
[2021-03-03] MEDS: cefTRIAXone 2,000 MG in 0.9 % Sodium Chloride Mini Bag 100 ML IVPB SCH (05:53)
[2021-03-03 06:10] LABS: Albumin 2.9 g/dL (3.5-5.7); Albumin/Globulin Ratio 1.2 (1.1-2.2); Bilirubin,Total 0.2 mg/dL (0.3-1.0); Calcium 8.6 mg/dL (8.6-10.3); Globulin 2.5 g/dL (2.4-3.5); Potassium 4.8 mEq/L (3.5-5.1); Total Protein 5.4 g/dL (6.4-8.9)
[2021-03-03] MEDS: Acyclovir 500 MG in D5% in Water 100 ML IVPB SCH (07:34)
[2021-03-03] MEDS: Sodium Bicarbonate 150 MEQ in Water for inj. (sterile) 1,000 ML IVC SCH ×2 (08:39→18:21)
[2021-03-04 05:22] LABS: VBG HCO3 15 mEq/L (21-27); VBG PCO2 24 mmHg (41-51); VBG PO2 102 mmHg (25-50)
[2021-03-04 05:33] LABS: Hematocrit 25.4 % (35.3-44.9); Hemoglobin 8.2 g/dL (11.5-15.4); Mean Corpuscular HGB Conc 32.3 g/dL (31.6-35.5); Mean Corpuscular Hemoglobin 31.7 pg (28.0-33.3); Mean Corpuscular Volume 98.1 fL (83.0-100.0); Mean Platelet Volume 11.9 fL (9.4-12.4); Platelet Count 118 K/mcL (140-400); Red Blood Count 2.59 M/mcL (3.82-4.97); Red Cell Distribution Width 16.8 % (11.5-14.5)
[2021-03-04 05:50] LABS: Calcium 8.3 mg/dL (8.6-10.3); Potassium 5.3 mEq/L (3.5-5.1)
[2021-03-04] MEDS ORDERED: Bisacodyl 10 MG RECTAL SUPPOSITORY RC PRN (08:00)
[2021-03-04] MEDS: *HR* Dextrose 50 % in Water (Syg) 50 ML SYRINGE IVP PRN ×2 (08:38→17:44)
[2021-03-04] MEDS: Sodium Bicarbonate 150 MEQ in Water for inj. (sterile) 1,000 ML IVC SCH (08:53)
[2021-03-04] MEDS ORDERED: levETIRAcetam 250 MG TABLET PO SCH (09:00)
[2021-03-04] MEDS ORDERED: QUEtiapine Fumarate 25 MG TABLET PO SCH (09:00)
[2021-03-04] MEDS: levETIRAcetam 250 MG in 0.9 % Sodium Chloride 100 ML IVPB SCH (09:38)
[2021-03-04] MEDS: Aspirin Enteric Coated 81 MG Tablet PO SCH (09:53)
[2021-03-04] MEDS: Thiamine (B-1) 100 MG TABLET PO SCH (09:53)
[2021-03-04 10:23] LABS: Bilirubin,Urine Negative (Negative); Blood,Urine Trace (Negative); Clarity,Urine Clear (Clear); Color,Urine Light-Yellow (Yellow); Glucose,Urine (UA) 70 mg/dL (Normal); Ketones,Urine Trace mg/dL (Negative); Leukocyte Esterase,Urine Negative (Negative); Mucus,Urine Few per lpf (None-Few); Nitrite,Urine Negative (Negative); Protein,Urine >=300 mg/dL (Neg-Trace); Specific Gravity,Urine 1.023 (1.010-1.025); Transitional Epi Cells,Urine Few per hpf (None-Few); Urobilinogen,Urine Normal (Normal)
[2021-03-04] MEDS: cefTRIAXone 1,000 MG in 0.9 % Sodium Chloride Mini Bag 100 ML IVPB SCH (11:17)
[2021-03-04] MEDS ORDERED: Levothyroxine Sodium 100 MCG VIAL IVP SCH (12:00)
[2021-03-04] MEDS: Levothyroxine Sodium 100 MCG VIAL IVP SCH (13:47)
[2021-03-04] MEDS ORDERED: Atropine 1% Opth Drops 100 DROP/5 ML BOTTLE SL PRN (21:09)
[2021-03-04] MEDS ORDERED: Glycopyrrolate 0.2 MG/ML VIAL IVP ONE (22:13)
[2021-03-04] MEDS: Scopolamine Patch 1.5 MG PATCH.TD72 TD SCH (22:25)
[2021-03-05] MEDS: Sodium Bicarbonate 150 MEQ in Water for inj. (sterile) 1,000 ML IVC SCH (01:00)
[2021-03-05] MEDS: 0.9 % Sodium Chloride 1,000 ML IVC SCH ×2 (02:00→17:40)
[2021-03-05] MEDS ORDERED: Levothyroxine 25 MCG TABLET PO SCH (06:30)
[2021-03-05 07:47] LABS: Hematocrit 22.9 % (35.3-44.9); Hemoglobin 7.5 g/dL (11.5-15.4); Mean Corpuscular HGB Conc 32.8 g/dL (31.6-35.5); Mean Corpuscular Hemoglobin 31.6 pg (28.0-33.3); Mean Corpuscular Volume 96.6 fL (83.0-100.0); Mean Platelet Volume 11.7 fL (9.4-12.4); Platelet Count 104 K/mcL (140-400); Red Blood Count 2.37 M/mcL (3.82-4.97); Red Cell Distribution Width 16.3 % (11.5-14.5); White Blood Count 5.5 K/mcL (4.3-11.1)
[2021-03-05] MEDS: *HR* Dextrose 50 % in Water (Syg) 50 ML SYRINGE IVP PRN ×2 (07:54→12:45)
[2021-03-05 10:17] LABS: Calcium 7.5 mg/dL (8.6-10.3); Potassium 3.5 mEq/L (3.5-5.1)
[2021-03-05] MEDS: levETIRAcetam 250 MG in 0.9 % Sodium Chloride 100 ML IVPB SCH (10:26)
[2021-03-05] MEDS: cefTRIAXone 1,000 MG in 0.9 % Sodium Chloride Mini Bag 100 ML IVPB SCH (10:50)
[2021-03-05] MEDS: Levothyroxine Sodium 100 MCG VIAL IVP SCH (12:41)
[2021-03-05] MEDS: Sodium Bicarbonate 150 MEQ in D5% in Water 1,000 ML IVC SCH (17:42)
[2021-03-06] MEDS: Sodium Bicarbonate 150 MEQ in D5% in Water 1,000 ML IVC SCH ×2 (03:57→22:39)
[2021-03-06 04:20] LABS: Lambda Qnt Free Light Chains 66.78 mg/L (5.71-26.30)
[2021-03-06] MEDS: levETIRAcetam 250 MG in 0.9 % Sodium Chloride 100 ML IVPB SCH (08:17)
[2021-03-06] MEDS: Aspirin Enteric Coated 81 MG Tablet PO SCH (08:18)
[2021-03-06] MEDS: Thiamine (B-1) 100 MG TABLET PO SCH (08:19)
[2021-03-06 10:08] LABS: Basophils # 0.1 K/mcL (0.0-0.2); Basophils % 0.8 %; Eosinophils # 0.1 K/mcL (0.0-0.6); Eosinophils % 1.3 %; Hematocrit 26.4 % (35.3-44.9); Hemoglobin 8.5 g/dL (11.5-15.4); Immature Granulocytes % 2.8 % (0-4); Lymphocytes # 0.9 K/mcL (0.6-4.6); Lymphocytes % 11.1 %; Mean Corpuscular HGB Conc 32.2 g/dL (31.6-35.5); Mean Corpuscular Hemoglobin 30.7 pg (28.0-33.3); Mean Corpuscular Volume 95.3 fL (83.0-100.0); Mean Platelet Volume 11.6 fL (9.4-12.4); Monocytes # 0.7 K/mcL (0.0-1.3); Monocytes % 8.9 %; Neutrophils # 5.9 K/mcL (1.6-8.9); Nucleated Red Blood Cells 0.6 /100 WBC (0); Platelet Count 117 K/mcL (140-400); Red Blood Count 2.77 M/mcL (3.82-4.97); Red Cell Distribution Width 16.1 % (11.5-14.5); Segmented Neutrophils % 75.1 %; White Blood Count 7.8 K/mcL (4.3-11.1)
[2021-03-06 12:05] LABS: Calcium 7.8 mg/dL (8.6-10.3); Potassium 3.3 mEq/L (3.5-5.1)
[2021-03-06] MEDS ORDERED: Fluconazole 200 MG/100 ML 200 MG/100 ML BAG IVPB ONE (13:29)
[2021-03-06 13:31] LABS: Kappa Qnt Free Light Chains 126.69 mg/L (3.30-19.40)
[2021-03-06] MEDS: Levothyroxine Sodium 100 MCG VIAL IVP SCH (14:43)
[2021-03-06] MEDS ORDERED: Albumin 25% 25gram/100mL 25 GM/100 ML IV.SOLN IVPB ONE (14:55)
[2021-03-07] MEDS: Aspirin Enteric Coated 81 MG Tablet PO SCH (08:11)
[2021-03-07] MEDS: Thiamine (B-1) 100 MG TABLET PO SCH (08:11)
[2021-03-07] MEDS: levETIRAcetam 250 MG in 0.9 % Sodium Chloride 100 ML IVPB SCH (08:13)
[2021-03-07] MEDS: Sodium Bicarbonate 150 MEQ in D5% in Water 1,000 ML IVC SCH (08:14)
[2021-03-07 10:29] LABS: Basophils % 0.6 %; Eosinophils % 0.6 %; Hematocrit 21.6 % (35.3-44.9); Lymphocytes % 15.2 %; Mean Corpuscular HGB Conc 32.4 g/dL (31.6-35.5); Mean Corpuscular Hemoglobin 31.5 pg (28.0-33.3); Mean Corpuscular Volume 97.3 fL (83.0-100.0); Mean Platelet Volume 11.6 fL (9.4-12.4); Monocytes # 0.7 K/mcL (0.0-1.3); Monocytes % 10.2 %; Neutrophils # 4.5 K/mcL (1.6-8.9); Nucleated Red Blood Cells 0.5 /100 WBC (0); Platelet Count 103 K/mcL (140-400); Red Blood Count 2.22 M/mcL (3.82-4.97); Red Cell Distribution Width 15.9 % (11.5-14.5); Segmented Neutrophils % 69.4 %; White Blood Count 6.5 K/mcL (4.3-11.1)
[2021-03-07 10:33] LABS: Serine Protease-3 Antibody 0 AU/mL (0-19)
[2021-03-07 10:38] LABS: ANA IgG by ELISA NONE DETECTED (None Detected)
[2021-03-07 10:39] LABS: Potassium 3.2 mEq/L (3.5-5.1)
[2021-03-07] MEDS: Levothyroxine Sodium 100 MCG VIAL IVP SCH (12:44)
[2021-03-07] MEDS: NIFEdipine XL (24 HR) 60 MG TAB.ER.24 PO SCH (14:54)
[2021-03-07] MEDS: D5% in Water 1,000 ML IVC SCH (14:55)
[2021-03-07] MEDS: Fluconazole 200 MG/100 ML 100 MG/50 ML BAG IVPB SCH (16:13)
[2021-03-07] MEDS: Scopolamine Patch 1.5 MG PATCH.TD72 TD SCH (23:59)
[2021-03-08] MEDS: D5% in Water 1,000 ML IVC SCH (02:40)
[2021-03-08 05:22] LABS: Basophils # 0.1 K/mcL (0.0-0.2); Basophils % 0.4 %; Eosinophils # 0.2 K/mcL (0.0-0.6); Eosinophils % 1.4 %; Hematocrit 23.8 % (35.3-44.9); Hemoglobin 7.5 g/dL (11.5-15.4); Immature Granulocytes % 1.2 % (0-4); Lymphocytes # 1.4 K/mcL (0.6-4.6); Lymphocytes % 11.3 %; Mean Corpuscular HGB Conc 31.5 g/dL (31.6-35.5); Mean Corpuscular Hemoglobin 31.1 pg (28.0-33.3); Mean Corpuscular Volume 98.8 fL (83.0-100.0); Mean Platelet Volume 11.8 fL (9.4-12.4); Monocytes # 0.8 K/mcL (0.0-1.3); Monocytes % 6.5 %; Neutrophils # 9.8 K/mcL (1.6-8.9); Platelet Count 118 K/mcL (140-400); Red Blood Count 2.41 M/mcL (3.82-4.97); Red Cell Distribution Width 15.3 % (11.5-14.5); Segmented Neutrophils % 79.2 %
[2021-03-08 05:26] LABS: White Blood Count 12.4 K/mcL (4.3-11.1)
[2021-03-08 05:44] LABS: Albumin 2.7 g/dL (3.5-5.7); Albumin/Globulin Ratio 1.3 (1.1-2.2); Bilirubin,Total 0.3 mg/dL (0.3-1.0); Calcium 7.8 mg/dL (8.6-10.3); Globulin 2.1 g/dL (2.4-3.5); Magnesium 1.8 mg/dL (1.6-2.6); Potassium 3.2 mEq/L (3.5-5.1); Total Protein 4.8 g/dL (6.4-8.9)
[2021-03-08] MEDS ORDERED: Potassium Chloride Elixir 20 MEQ/15 ML UDC PO ONE (07:37)
[2021-03-08] MEDS ORDERED: Albumin 25% 25gram/100mL 25 GM/100 ML IV.SOLN IVPB ONE (09:21)
[2021-03-08] MEDS: NIFEdipine XL (24 HR) 60 MG TAB.ER.24 PO SCH (09:46)
[2021-03-08] MEDS: Aspirin Enteric Coated 81 MG Tablet PO SCH (09:48)
[2021-03-08] MEDS: Thiamine (B-1) 100 MG TABLET PO SCH (09:48)
[2021-03-08] MEDS: levETIRAcetam 250 MG in 0.9 % Sodium Chloride 100 ML IVPB SCH (09:49)
[2021-03-08 11:49] LABS: Immunoglobulin A 209 mg/dL (68-408); Immunoglobulin G 451 mg/dL (768-1632); Immunoglobulin M 34 mg/dL (35-263)
[2021-03-08] MEDS: Levothyroxine Sodium 100 MCG VIAL IVP SCH (14:29)
[2021-03-08] MEDS: Fluconazole 200 MG/100 ML 100 MG/50 ML BAG IVPB SCH (14:34)
[2021-03-08 16:39] LABS: Alpha 2 Globulin (PEP) 0.95 g/dL (0.48-1.05); Beta Globulin (PEP) 0.49 g/dL (0.48-1.10)
[2021-03-09 06:24] LABS: Basophils # 0.1 K/mcL (0.0-0.2); Basophils % 0.5 %; Eosinophils # 0.1 K/mcL (0.0-0.6); Eosinophils % 0.7 %; Hematocrit 23.1 % (35.3-44.9); Hemoglobin 7.2 g/dL (11.5-15.4); Immature Granulocytes % 1.6 % (0-4); Lymphocytes # 1.4 K/mcL (0.6-4.6); Lymphocytes % 12.3 %; Mean Corpuscular HGB Conc 31.2 g/dL (31.6-35.5); Mean Corpuscular Hemoglobin 30.8 pg (28.0-33.3); Mean Corpuscular Volume 98.7 fL (83.0-100.0); Mean Platelet Volume 12.2 fL (9.4-12.4); Monocytes # 0.7 K/mcL (0.0-1.3); Monocytes % 6.1 %; Platelet Count 118 K/mcL (140-400); Red Blood Count 2.34 M/mcL (3.82-4.97); Red Cell Distribution Width 14.8 % (11.5-14.5); Segmented Neutrophils % 78.8 %; White Blood Count 11.5 K/mcL (4.3-11.1)
[2021-03-09 06:35] LABS: Calcium 7.9 mg/dL (8.6-10.3); Magnesium 1.7 mg/dL (1.6-2.6); Potassium 4.1 mEq/L (3.5-5.1)
[2021-03-09] MEDS: NIFEdipine XL (24 HR) 60 MG TAB.ER.24 PO SCH (08:14)
[2021-03-09] MEDS: Thiamine (B-1) 100 MG TABLET PO SCH (08:14)
[2021-03-09] MEDS: Aspirin Enteric Coated 81 MG Tablet PO SCH (08:15)
[2021-03-09] MEDS: levETIRAcetam 250 MG in 0.9 % Sodium Chloride 100 ML IVPB SCH (08:18)
[2021-03-09 11:16] LABS: IFE Reflexed IFE Done
[2021-03-09] MEDS ORDERED: Albumin 25% 25gram/100mL 25 GM/100 ML IV.SOLN IVPB ONE (11:43)
[2021-03-09] MEDS: Levothyroxine Sodium 100 MCG VIAL IVP SCH (14:24)
[2021-03-09] MEDS: Albumin 25% 25gram/100mL 25 GM/100 ML IV.SOLN IVPB ONE (14:25)
[2021-03-09] MEDS: Fluconazole 200 MG/100 ML 100 MG/50 ML BAG IVPB SCH (15:45)
[2021-03-09] MEDS ORDERED: E-Z-HD (BARIUM SULF) SUSPENSION PO ONE (16:17)
[2021-03-09] MEDS ORDERED: E-Z-PAQUE (BARIUM SULF) SUSP 1 BOTTLE PO ONE (16:17)
[2021-03-09] MEDS: Fluconazole 100 MG TABLET PO SCH (17:03)
[2021-03-09] MEDS: levETIRAcetam 250 MG TABLET PO SCH (21:46)
[2021-03-10] MEDS: Levothyroxine 25 MCG TABLET PO SCH (05:52)
[2021-03-10 07:20] LABS: Basophils # 0.1 K/mcL (0.0-0.2); Basophils % 0.5 %; Eosinophils # 0.1 K/mcL (0.0-0.6); Eosinophils % 0.6 %; Hemoglobin 6.8 g/dL (11.5-15.4); Immature Granulocytes % 1.1 % (0-4); Lymphocytes % 9.5 %; Mean Corpuscular HGB Conc 30.9 g/dL (31.6-35.5); Mean Corpuscular Hemoglobin 31.1 pg (28.0-33.3); Mean Corpuscular Volume 100.5 fL (83.0-100.0); Mean Platelet Volume 11.6 fL (9.4-12.4); Monocytes # 0.9 K/mcL (0.0-1.3); Monocytes % 8.6 %; Platelet Count 139 K/mcL (140-400); Red Blood Count 2.19 M/mcL (3.82-4.97); Red Cell Distribution Width 14.6 % (11.5-14.5); Segmented Neutrophils % 79.7 %
[2021-03-10 07:48] LABS: Calcium 8.1 mg/dL (8.6-10.3); Potassium 3.8 mEq/L (3.5-5.1)
[2021-03-10] MEDS ORDERED: 0.9 % Sodium Chloride 250 ML ONE (10:50)
[2021-03-10] MEDS: NIFEdipine XL (24 HR) 60 MG TAB.ER.24 PO SCH (10:54)
[2021-03-10] MEDS: Aspirin Enteric Coated 81 MG Tablet PO SCH (10:54)
[2021-03-10] MEDS: levETIRAcetam 250 MG TABLET PO SCH ×2 (10:54→22:06)
[2021-03-10] MEDS: Thiamine (B-1) 100 MG TABLET PO SCH (10:54)
[2021-03-10 14:59] LABS: Hemoglobin 7.4 g/dL (11.5-15.4); Mean Corpuscular HGB Conc 30.8 g/dL (31.6-35.5); Mean Corpuscular Hemoglobin 30.5 pg (28.0-33.3); Mean Corpuscular Volume 98.8 fL (83.0-100.0); Mean Platelet Volume 11.8 fL (9.4-12.4); Platelet Count 141 K/mcL (140-400); Red Blood Count 2.43 M/mcL (3.82-4.97); Red Cell Distribution Width 15.5 % (11.5-14.5)
[2021-03-10] MEDS: Fluconazole 100 MG TABLET PO SCH (15:13)
[2021-03-10] MEDS: Scopolamine Patch 1.5 MG PATCH.TD72 TD SCH (22:06)
[2021-03-11] MEDS: Levothyroxine 25 MCG TABLET PO SCH (06:19)
[2021-03-11 06:25] LABS: Basophils # 0.1 K/mcL (0.0-0.2); Basophils % 0.9 %; Eosinophils # 0.1 K/mcL (0.0-0.6); Eosinophils % 1.3 %; Hematocrit 25.5 % (35.3-44.9); Hemoglobin 8.2 g/dL (11.5-15.4); Immature Granulocytes % 0.7 % (0-4); Lymphocytes # 1.1 K/mcL (0.6-4.6); Lymphocytes % 12.4 %; Mean Corpuscular HGB Conc 32.2 g/dL (31.6-35.5); Mean Corpuscular Hemoglobin 31.9 pg (28.0-33.3); Mean Corpuscular Volume 99.2 fL (83.0-100.0); Mean Platelet Volume 12.2 fL (9.4-12.4); Monocytes # 0.8 K/mcL (0.0-1.3); Monocytes % 8.7 %; Neutrophils # 6.6 K/mcL (1.6-8.9); Platelet Count 171 K/mcL (140-400); Red Blood Count 2.57 M/mcL (3.82-4.97); Red Cell Distribution Width 15.3 % (11.5-14.5); White Blood Count 8.7 K/mcL (4.3-11.1)
[2021-03-11 08:21] LABS: Calcium 7.9 mg/dL (8.6-10.3); Potassium 4.1 mEq/L (3.5-5.1)
[2021-03-11] MEDS: NIFEdipine XL (24 HR) 60 MG TAB.ER.24 PO SCH (09:28)
[2021-03-11] MEDS: Aspirin Enteric Coated 81 MG Tablet PO SCH (09:29)
[2021-03-11] MEDS: levETIRAcetam 250 MG TABLET PO SCH ×2 (09:29→19:51)
[2021-03-11] MEDS: Thiamine (B-1) 100 MG TABLET PO SCH (09:29)
[2021-03-11] MEDS: Fluconazole 100 MG TABLET PO SCH (14:48)
[2021-03-12 03:17] LABS: Basophils # 0.1 K/mcL (0.0-0.2); Basophils % 0.6 %; Eosinophils # 0.1 K/mcL (0.0-0.6); Hematocrit 24.3 % (35.3-44.9); Hemoglobin 7.9 g/dL (11.5-15.4); Immature Granulocytes % 0.8 % (0-4); Lymphocytes # 0.9 K/mcL (0.6-4.6); Lymphocytes % 9.5 %; Mean Corpuscular HGB Conc 32.5 g/dL (31.6-35.5); Mean Corpuscular Volume 98.4 fL (83.0-100.0); Mean Platelet Volume 11.9 fL (9.4-12.4); Monocytes # 0.7 K/mcL (0.0-1.3); Monocytes % 7.5 %; Neutrophils # 7.3 K/mcL (1.6-8.9); Platelet Count 242 K/mcL (140-400); Red Blood Count 2.47 M/mcL (3.82-4.97); Red Cell Distribution Width 14.5 % (11.5-14.5); Segmented Neutrophils % 80.6 %; White Blood Count 9.1 K/mcL (4.3-11.1)
[2021-03-12 03:21] LABS: Calcium 8.1 mg/dL (8.6-10.3); Potassium 4.3 mEq/L (3.5-5.1)
[2021-03-12] MEDS: Levothyroxine 25 MCG TABLET PO SCH (05:18)
[2021-03-12] MEDS: levETIRAcetam 250 MG TABLET PO SCH ×2 (10:18→20:44)
[2021-03-12] MEDS: NIFEdipine XL (24 HR) 60 MG TAB.ER.24 PO SCH (10:18)
[2021-03-12] MEDS: Thiamine (B-1) 100 MG TABLET PO SCH (10:18)
[2021-03-12] MEDS: Aspirin Enteric Coated 81 MG Tablet PO SCH (10:18)
[2021-03-12] MEDS ORDERED: Albumin 25% 25gram/100mL 25 GM/100 ML IV.SOLN IVPB ONE (14:15)
[2021-03-12] MEDS: Albumin 25% 25gram/100mL 25 GM/100 ML IV.SOLN IVPB ONE (14:42)
[2021-03-12] MEDS: Fluconazole 100 MG TABLET PO SCH (14:43)
[2021-03-12] MEDS ORDERED: Furosemide 40 MG/4 ML VIAL IVP ONE (16:00)
[2021-03-12] MEDS ORDERED: *HR* OxyCODONE/APAP 5/325 TABLET PO ONE (23:51)
[2021-03-13] MEDS: Levothyroxine 25 MCG TABLET PO SCH (05:21)
[2021-03-13] MEDS: NIFEdipine XL (24 HR) 30 MG TAB.ER.24 PO SCH (09:17)
[2021-03-13] MEDS: levETIRAcetam 250 MG TABLET PO SCH ×2 (09:17→20:23)
[2021-03-13] MEDS: Aspirin Enteric Coated 81 MG Tablet PO SCH (09:17)
[2021-03-13] MEDS: Thiamine (B-1) 100 MG TABLET PO SCH (09:17)
[2021-03-13 10:17] LABS: Basophils # 0.1 K/mcL (0.0-0.2); Basophils % 0.7 %; Eosinophils # 0.1 K/mcL (0.0-0.6); Eosinophils % 1.1 %; Hematocrit 24.5 % (35.3-44.9); Hemoglobin 7.8 g/dL (11.5-15.4); Immature Granulocytes % 0.7 % (0-4); Lymphocytes % 13.5 %; Mean Corpuscular HGB Conc 31.8 g/dL (31.6-35.5); Mean Corpuscular Volume 100.4 fL (83.0-100.0); Mean Platelet Volume 10.9 fL (9.4-12.4); Monocytes # 0.6 K/mcL (0.0-1.3); Monocytes % 8.9 %; Neutrophils # 5.3 K/mcL (1.6-8.9); Platelet Count 261 K/mcL (140-400); Red Blood Count 2.44 M/mcL (3.82-4.97); Red Cell Distribution Width 13.6 % (11.5-14.5); Segmented Neutrophils % 75.1 %
[2021-03-13 10:36] LABS: Calcium 8.2 mg/dL (8.6-10.3); Potassium 3.7 mEq/L (3.5-5.1)
[2021-03-13] MEDS: Acetaminophen 325 MG TABLET PO PRN ×2 (10:44→20:37)
[2021-03-13] MEDS ORDERED: Furosemide 40 MG/4 ML VIAL IVP SCH (12:00)
[2021-03-13] MEDS ORDERED: Albumin 25% 25gram/100mL 25 GM/100 ML IV.SOLN IVPB SCH (12:15)
[2021-03-13 12:22] LABS: Influenza A PCR Negative (Negative); Influenza B PCR Negative (Negative); Resp. Syncytial Virus PCR Negative (Negative)
[2021-03-13 12:23] LABS: SARS-CoV-2 by PCR (In House) Negative (Negative)
[2021-03-13] MEDS: Scopolamine Patch 1.5 MG PATCH.TD72 TD SCH (20:34)
[2021-03-14] MEDS: Levothyroxine 25 MCG TABLET PO SCH (05:49)
[2021-03-14 06:49] LABS: Hematocrit 26.2 % (35.3-44.9); Hemoglobin 8.3 g/dL (11.5-15.4); Mean Corpuscular HGB Conc 31.7 g/dL (31.6-35.5); Mean Corpuscular Hemoglobin 31.7 pg (28.0-33.3); Mean Platelet Volume 10.8 fL (9.4-12.4); Platelet Count 282 K/mcL (140-400); Red Blood Count 2.62 M/mcL (3.82-4.97); Red Cell Distribution Width 13.3 % (11.5-14.5); White Blood Count 5.7 K/mcL (4.3-11.1)
[2021-03-14 06:58] LABS: Calcium 8.3 mg/dL (8.6-10.3); Potassium 4.2 mEq/L (3.5-5.1)
[2021-03-14] MEDS: Aspirin Enteric Coated 81 MG Tablet PO SCH (08:31)
[2021-03-14] MEDS: Albumin 25% 25gram/100mL 25 GM/100 ML IV.SOLN IVPB SCH (08:31)
[2021-03-14] MEDS: levETIRAcetam 250 MG TABLET PO SCH ×2 (08:31→20:59)
[2021-03-14] MEDS: NIFEdipine XL (24 HR) 30 MG TAB.ER.24 PO SCH (08:31)
[2021-03-14] MEDS: Thiamine (B-1) 100 MG TABLET PO SCH (08:31)
[2021-03-14] MEDS: Acetaminophen 325 MG TABLET PO PRN (15:46)
[2021-03-14] MEDS: Furosemide 40 MG/4 ML VIAL IVP SCH (18:16)
[2021-03-15] MEDS: Acetaminophen 325 MG TABLET PO PRN (01:03)
[2021-03-15 02:19] LABS: Bacteria,Urine Few per hpf (None-Few); Bilirubin,Urine Negative (Negative); Blood,Urine Trace (Negative); Clarity,Urine Clear (Clear); Color,Urine Colorless (Yellow); Glucose,Urine (UA) Normal (Normal); Hyaline Casts,Urine Few per lpf (None Seen); Ketones,Urine Negative (Negative); Leukocyte Esterase,Urine Large (Negative); Mucus,Urine Few per lpf (None-Few); Nitrite,Urine Negative (Negative); PH,Urine 6.5 pH Units (5.0-8.0); Protein,Urine 200 mg/dL (Neg-Trace); Specific Gravity,Urine 1.009 (1.010-1.025); Urobilinogen,Urine Normal (Normal); WBC,Urine TNTC per hpf (0-3)
[2021-03-15] MEDS: Levothyroxine 25 MCG TABLET PO SCH (06:43)
[2021-03-15] MEDS: Aspirin Enteric Coated 81 MG Tablet PO SCH (07:38)
[2021-03-15] MEDS: levETIRAcetam 250 MG TABLET PO SCH ×2 (07:38→21:32)
[2021-03-15] MEDS: NIFEdipine XL (24 HR) 30 MG TAB.ER.24 PO SCH (07:38)
[2021-03-15] MEDS: Albumin 25% 25gram/100mL 25 GM/100 ML IV.SOLN IVPB SCH (07:38)
[2021-03-15] MEDS: Thiamine (B-1) 100 MG TABLET PO SCH (07:38)
[2021-03-15 10:08] LABS: Hematocrit 22.8 % (35.3-44.9); Mean Corpuscular HGB Conc 30.7 g/dL (31.6-35.5); Mean Corpuscular Hemoglobin 31.4 pg (28.0-33.3); Mean Corpuscular Volume 102.2 fL (83.0-100.0); Mean Platelet Volume 10.9 fL (9.4-12.4); Platelet Count 275 K/mcL (140-400); Red Blood Count 2.23 M/mcL (3.82-4.97); Red Cell Distribution Width 13.5 % (11.5-14.5)
[2021-03-15 10:28] LABS: Potassium 4.3 mEq/L (3.5-5.1)
[2021-03-15] MEDS: cefTRIAXone 2,000 MG in 0.9 % Sodium Chloride Mini Bag 100 ML IVPB SCH (12:06)
[2021-03-15] MEDS: Furosemide 40 MG/4 ML VIAL IVP SCH (12:19)
[2021-03-15] MEDS ORDERED: Fluticasone Propionate Nasal 50 MCG/SPRAY BOTTLE NS PRN (22:47)
[2021-03-15] MEDS ORDERED: Carbamide Peroxide 150 DROP/15 ML BOTTLE LEFT EAR ONE (22:50)
[2021-03-16] MEDS: Acetaminophen 325 MG TABLET PO PRN ×2 (02:22→22:47)
[2021-03-16] MEDS: Levothyroxine 25 MCG TABLET PO SCH (06:28)
[2021-03-16 07:03] LABS: Hemoglobin 7.2 g/dL (11.5-15.4); Mean Corpuscular HGB Conc 31.3 g/dL (31.6-35.5); Mean Corpuscular Hemoglobin 31.2 pg (28.0-33.3); Mean Corpuscular Volume 99.6 fL (83.0-100.0); Mean Platelet Volume 10.9 fL (9.4-12.4); Platelet Count 305 K/mcL (140-400); Red Blood Count 2.31 M/mcL (3.82-4.97); Red Cell Distribution Width 13.4 % (11.5-14.5); White Blood Count 4.9 K/mcL (4.3-11.1)
[2021-03-16 07:25] LABS: Calcium 8.1 mg/dL (8.6-10.3); Potassium 3.8 mEq/L (3.5-5.1)
[2021-03-16] MEDS: cefTRIAXone 2,000 MG in 0.9 % Sodium Chloride Mini Bag 100 ML IVPB SCH (09:15)
[2021-03-16] MEDS: Furosemide 40 MG TABLET PO SCH (09:16)
[2021-03-16] MEDS: NIFEdipine XL (24 HR) 60 MG TAB.ER.24 PO SCH (09:16)
[2021-03-16] MEDS: Aspirin Enteric Coated 81 MG Tablet PO SCH (09:16)
[2021-03-16] MEDS: Thiamine (B-1) 100 MG TABLET PO SCH (09:16)
[2021-03-16] MEDS: levETIRAcetam 250 MG TABLET PO SCH ×2 (09:16→19:40)
[2021-03-16] MEDS ORDERED: Carbamide Peroxide 150 DROP/15 ML BOTTLE LEFT EAR PRN (18:09)
[2021-03-16] MEDS: Scopolamine Patch 1.5 MG PATCH.TD72 TD SCH (19:40)
[2021-03-17] MEDS: Levothyroxine 25 MCG TABLET PO SCH (05:16)
[2021-03-17 05:54] LABS: Hematocrit 24.4 % (35.3-44.9); Hemoglobin 7.7 g/dL (11.5-15.4); Mean Corpuscular HGB Conc 31.6 g/dL (31.6-35.5); Mean Corpuscular Hemoglobin 31.3 pg (28.0-33.3); Mean Corpuscular Volume 99.2 fL (83.0-100.0); Mean Platelet Volume 10.5 fL (9.4-12.4); Platelet Count 360 K/mcL (140-400); Red Blood Count 2.46 M/mcL (3.82-4.97); Red Cell Distribution Width 13.3 % (11.5-14.5)
[2021-03-17 06:50] LABS: Calcium 8.1 mg/dL (8.6-10.3); Potassium 3.7 mEq/L (3.5-5.1)
[2021-03-17] MEDS: Thiamine (B-1) 100 MG TABLET PO SCH (08:26)
[2021-03-17] MEDS: Aspirin Enteric Coated 81 MG Tablet PO SCH (08:26)
[2021-03-17] MEDS: NIFEdipine XL (24 HR) 60 MG TAB.ER.24 PO SCH (08:27)
[2021-03-17] MEDS: levETIRAcetam 250 MG TABLET PO SCH ×2 (08:27→21:53)
[2021-03-17] MEDS: Furosemide 40 MG TABLET PO SCH (08:27)
[2021-03-17] MEDS ORDERED: cefTRIAXone 1,000 MG in Water for inj. (sterile) 10 ML IVP SCH (09:00)
[2021-03-17] MEDS ORDERED: Ondansetron 4 MG/2 ML VIAL IVP PRN (13:03)
[2021-03-17] MEDS: Simethicone 80 MG TAB.CHEW PO PRN (13:15)
[2021-03-18 01:34] LABS: Hematocrit 22.2 % (35.3-44.9); Mean Corpuscular HGB Conc 31.5 g/dL (31.6-35.5); Mean Corpuscular Hemoglobin 31.5 pg (28.0-33.3); Mean Platelet Volume 10.4 fL (9.4-12.4); Platelet Count 342 K/mcL (140-400); Red Blood Count 2.22 M/mcL (3.82-4.97); Red Cell Distribution Width 13.5 % (11.5-14.5); White Blood Count 5.6 K/mcL (4.3-11.1)
[2021-03-18 01:55] LABS: Calcium 7.7 mg/dL (8.6-10.3); Potassium 3.7 mEq/L (3.5-5.1)
[2021-03-18 06:08] LABS: C.difficile Toxin A/B Gene PCR Not detected (Not detect); Campylobacter by PCR Not detected (Not detect); Cryptosporidium by PCR Not detected (Not detect); Cyclospora cayetanensis PCR Not detected (Not detect); E. coli O157 by PCR Not detected (Not detect); Entamoeba histolytica PCR Not detected (Not detect); Enteroaggregative E.coli(EAEC) Not detected (Not detect); Enteropathogenic E.coli(EPEC) Not detected (Not detect); Enterotoxigenic E.coli (ETEC) Not detected (Not detect); Giardia lamblia PCR Not detected (Not detect); Plesiomonas shigelloides PCR Not detected (Not detect); Salmonella PCR Not detected (Not detect); Shig/EnteroinvasiveE coli EIEC Not detected (Not detect); Shigalike tox-prod E coli STEC Not detected (Not detect); Vibrio PCR Not detected (Not detect); Vibrio cholerae PCR Not detected (Not detect); Yersinia enterocolitica PCR Not detected (Not detect)
[2021-03-18 06:09] LABS: Adenovirus F 40/41 PCR Not detected (Not detect); Astrovirus PCR Not detected (Not detect); Norovirus GI/GII PCR Not detected (Not detect); Rotavirus A PCR Not detected (Not detect); Sapovirus PCR Not detected (Not detect)
[2021-03-18] MEDS: Furosemide 40 MG TABLET PO SCH (07:42)
[2021-03-18] MEDS: levETIRAcetam 250 MG TABLET PO SCH ×2 (07:42→20:47)
[2021-03-18] MEDS: Levothyroxine 25 MCG TABLET PO SCH (07:42)
[2021-03-18] MEDS: Thiamine (B-1) 100 MG TABLET PO SCH (07:42)
[2021-03-18] MEDS: Aspirin Enteric Coated 81 MG Tablet PO SCH (07:43)
[2021-03-18] MEDS: NIFEdipine XL (24 HR) 60 MG TAB.ER.24 PO SCH (07:43)
[2021-03-18] MEDS: Simethicone 80 MG TAB.CHEW PO PRN (13:58)
[2021-03-18] MEDS: Acetaminophen 325 MG TABLET PO PRN (13:58)
[2021-03-19 05:06] LABS: Hematocrit 22.4 % (35.3-44.9); Mean Corpuscular HGB Conc 31.3 g/dL (31.6-35.5); Mean Corpuscular Hemoglobin 31.8 pg (28.0-33.3); Mean Corpuscular Volume 101.8 fL (83.0-100.0); Platelet Count 342 K/mcL (140-400); Red Cell Distribution Width 13.4 % (11.5-14.5); White Blood Count 3.9 K/mcL (4.3-11.1)
[2021-03-19] MEDS: Levothyroxine 25 MCG TABLET PO SCH (05:59)
[2021-03-19] MEDS: levETIRAcetam 250 MG TABLET PO SCH ×2 (08:38→20:21)
[2021-03-19] MEDS: Thiamine (B-1) 100 MG TABLET PO SCH (08:38)
[2021-03-19] MEDS: Aspirin Enteric Coated 81 MG Tablet PO SCH (08:38)
[2021-03-19] MEDS: NIFEdipine XL (24 HR) 60 MG TAB.ER.24 PO SCH (08:38)
[2021-03-19] MEDS: Furosemide 20 MG TABLET PO SCH (08:38)
[2021-03-19] MEDS: Scopolamine Patch 1.5 MG PATCH.TD72 TD SCH (20:20)
[2021-03-20] MEDS: Levothyroxine 25 MCG TABLET PO SCH (05:06)
[2021-03-20 06:18] LABS: Hematocrit 23.8 % (35.3-44.9); Mean Corpuscular HGB Conc 29.4 g/dL (31.6-35.5); Mean Corpuscular Hemoglobin 30.3 pg (28.0-33.3); Mean Platelet Volume 10.4 fL (9.4-12.4); Platelet Count 376 K/mcL (140-400); Red Blood Count 2.31 M/mcL (3.82-4.97); Red Cell Distribution Width 13.4 % (11.5-14.5); White Blood Count 5.8 K/mcL (4.3-11.1)
[2021-03-20] MEDS: Furosemide 20 MG TABLET PO SCH (09:32)
[2021-03-20] MEDS: levETIRAcetam 250 MG TABLET PO SCH ×2 (09:32→19:50)
[2021-03-20] MEDS: Aspirin Enteric Coated 81 MG Tablet PO SCH (09:32)
[2021-03-20] MEDS: NIFEdipine XL (24 HR) 60 MG TAB.ER.24 PO SCH (09:32)
[2021-03-20] MEDS: Thiamine (B-1) 100 MG TABLET PO SCH (09:33)
[2021-03-21 03:48] LABS: Calcium 8.2 mg/dL (8.6-10.3); Potassium 3.9 mEq/L (3.5-5.1)
[2021-03-21 03:53] LABS: Hematocrit 23.4 % (35.3-44.9); Hemoglobin 7.2 g/dL (11.5-15.4); Mean Corpuscular HGB Conc 30.8 g/dL (31.6-35.5); Mean Corpuscular Volume 100.9 fL (83.0-100.0); Platelet Count 371 K/mcL (140-400); Red Blood Count 2.32 M/mcL (3.82-4.97); Red Cell Distribution Width 13.4 % (11.5-14.5); White Blood Count 6.1 K/mcL (4.3-11.1)
[2021-03-21] MEDS: Levothyroxine 25 MCG TABLET PO SCH (05:42)
[2021-03-21] MEDS: Thiamine (B-1) 100 MG TABLET PO SCH (07:59)
[2021-03-21] MEDS: Furosemide 20 MG TABLET PO SCH (07:59)
[2021-03-21] MEDS: NIFEdipine XL (24 HR) 60 MG TAB.ER.24 PO SCH (07:59)
[2021-03-21] MEDS: levETIRAcetam 250 MG TABLET PO SCH ×2 (07:59→20:17)
[2021-03-21] MEDS: Aspirin Enteric Coated 81 MG Tablet PO SCH (07:59)
[2021-03-22] MEDS: Levothyroxine 25 MCG TABLET PO SCH (05:49)
[2021-03-22] MEDS: levETIRAcetam 250 MG TABLET PO SCH ×2 (08:49→20:08)
[2021-03-22] MEDS: Thiamine (B-1) 100 MG TABLET PO SCH (08:49)
[2021-03-22] MEDS: Aspirin Enteric Coated 81 MG Tablet PO SCH (08:49)
[2021-03-22] MEDS: Furosemide 20 MG TABLET PO SCH (08:50)
[2021-03-22] MEDS: NIFEdipine XL (24 HR) 60 MG TAB.ER.24 PO SCH (08:50)
[2021-03-22] MEDS: Scopolamine Patch 1.5 MG PATCH.TD72 TD SCH (20:08)
[2021-03-23] MEDS: Levothyroxine 25 MCG TABLET PO SCH (06:09)
[2021-03-23] MEDS: NIFEdipine XL (24 HR) 60 MG TAB.ER.24 PO SCH (07:44)
[2021-03-23] MEDS: Thiamine (B-1) 100 MG TABLET PO SCH (07:44)
[2021-03-23] MEDS: levETIRAcetam 250 MG TABLET PO SCH ×2 (07:44→21:08)
[2021-03-23] MEDS: Aspirin Enteric Coated 81 MG Tablet PO SCH (07:44)
[2021-03-23] MEDS: Furosemide 20 MG TABLET PO SCH (07:44)
[2021-03-23 15:20] LABS: Basophils % 0.7 %; Eosinophils # 0.1 K/mcL (0.0-0.6); Eosinophils % 3.1 %; Hematocrit 24.1 % (35.3-44.9); Hemoglobin 7.5 g/dL (11.5-15.4); Immature Granulocytes % 1.3 % (0-4); Lymphocytes # 1.3 K/mcL (0.6-4.6); Lymphocytes % 28.9 %; Mean Corpuscular HGB Conc 31.1 g/dL (31.6-35.5); Mean Corpuscular Hemoglobin 31.1 pg (28.0-33.3); Mean Platelet Volume 10.2 fL (9.4-12.4); Monocytes # 0.4 K/mcL (0.0-1.3); Monocytes % 9.5 %; Platelet Count 343 K/mcL (140-400); Red Blood Count 2.41 M/mcL (3.82-4.97); Red Cell Distribution Width 13.4 % (11.5-14.5); Segmented Neutrophils % 56.5 %; White Blood Count 4.5 K/mcL (4.3-11.1)
[2021-03-23 15:26] LABS: Neutrophils # 2.5 K/mcL (1.6-8.9)
[2021-03-23 16:36] LABS: Adenovirus Not Detected (Not Detect); Coronavirus 229E Not Detected (Not Detect); Coronavirus HKU1 Not Detected (Not Detect); Coronavirus NL63 Not Detected (Not Detect); Coronavirus OC43 Not Detected (Not Detect)
[2021-03-23 16:38] LABS: Bordetella Pertussis Not Detected (Not Detect); Chlamydophila pneumoniae Not Detected (Not Detect); Human Metapneumovirus Not Detected (Not Detect); Human Rhinovirus/Enterovirus Not Detected (Not Detect); Influenza A Subtype 2009 H1 Not Detected (Not Detect); Influenza B Not Detected (Not Detect); Mycoplasma pneumoniae Not Detected (Not Detect); Parainfluenza Virus 1 Not Detected (Not Detect); Parainfluenza Virus 2 Not Detected (Not Detect); Parainfluenza Virus 3 Not Detected (Not Detect); Parainfluenza Virus 4 Not Detected (Not Detect); Respiratory Syncytial Virus Not Detected (Not Detect); SARS-CoV-2 DETECTED (Not Detect)
[2021-03-23 17:39] LABS: Large Platelets Present (Not Present)
[2021-03-24] MEDS: Levothyroxine 25 MCG TABLET PO SCH (05:30)
[2021-03-24] MEDS: Thiamine (B-1) 100 MG TABLET PO SCH (08:03)
[2021-03-24] MEDS: NIFEdipine XL (24 HR) 60 MG TAB.ER.24 PO SCH (08:03)
[2021-03-24] MEDS: levETIRAcetam 250 MG TABLET PO SCH ×2 (08:03→20:34)
[2021-03-24] MEDS: Furosemide 20 MG TABLET PO SCH (08:04)
[2021-03-24 08:09] LABS: Basophils % 0.9 %; Eosinophils # 0.2 K/mcL (0.0-0.6); Eosinophils % 3.8 %; Hematocrit 22.6 % (35.3-44.9); Immature Granulocytes % 1.4 % (0-4); Lymphocytes # 1.2 K/mcL (0.6-4.6); Lymphocytes % 26.5 %; Mean Corpuscular Hemoglobin 31.4 pg (28.0-33.3); Mean Corpuscular Volume 101.3 fL (83.0-100.0); Mean Platelet Volume 10.4 fL (9.4-12.4); Monocytes # 0.5 K/mcL (0.0-1.3); Monocytes % 10.6 %; Neutrophils # 2.5 K/mcL (1.6-8.9); Platelet Count 330 K/mcL (140-400); Red Blood Count 2.23 M/mcL (3.82-4.97); Red Cell Distribution Width 13.3 % (11.5-14.5); Segmented Neutrophils % 56.8 %; White Blood Count 4.4 K/mcL (4.3-11.1)
[2021-03-24] MEDS: Acetaminophen 325 MG TABLET PO PRN (16:12)
[2021-03-25] MEDS: Levothyroxine 25 MCG TABLET PO SCH (05:58)
[2021-03-25 06:40] LABS: Hemoglobin 7.4 g/dL (11.5-15.4); Mean Corpuscular HGB Conc 30.8 g/dL (31.6-35.5); Mean Corpuscular Hemoglobin 31.1 pg (28.0-33.3); Mean Corpuscular Volume 100.8 fL (83.0-100.0); Platelet Count 311 K/mcL (140-400); Red Blood Count 2.38 M/mcL (3.82-4.97); Red Cell Distribution Width 13.4 % (11.5-14.5); White Blood Count 4.6 K/mcL (4.3-11.1)
[2021-03-25 06:58] LABS: Calcium 8.2 mg/dL (8.6-10.3); Potassium 4.2 mEq/L (3.5-5.1)
[2021-03-25] MEDS: levETIRAcetam 250 MG TABLET PO SCH (08:09)
[2021-03-25] MEDS: Thiamine (B-1) 100 MG TABLET PO SCH (08:09)
[2021-03-25] MEDS: Furosemide 20 MG TABLET PO SCH (08:09)
[2021-03-25] MEDS: NIFEdipine XL (24 HR) 60 MG TAB.ER.24 PO SCH (08:09)
[2021-03-25 11:38] VITALS: BP 154/59; PULSE 52; TEMP 97.7; O2SAT 93
== END 2021-03-25 18:47 | DRG 871 ==
LOC: 2NNU 16:51 → EMEROOARM 16:51 → SUATTDRO 22:59 → 2NNU 23:44 → 2NENU 03-02 19:30
PROVIDERS: ADMIT Internal Medicine; ATTEND Registered Nurse